=== PATIENT | female | born 1970 | race Caucasian/White ===

== ENCOUNTER 2016-04-12 12:24 | Emergency (ER) | payer MEDICAID ==
[2016-04-12 12:39] VITALS: TEMP 97.7
--- NOTE | 2016-04-12 12:40 | CPEKG ---
Heart Rate: 111 RR Interval: 541 P-R Interval: 128 QRSD Interval: 78 QT Interval: 344 QTC Interval: 468 P [place]: 44 QRS [place]: -24 T Wave [place]: 53 EKG Severity - ABNORMAL ECG - EKG Impression: SINUS TACHYCARDIA EKG Impression: PROBABLE LVH WITH SECONDARY REPOL ABNRM Electronically Signed By: Britney Joyner 12-Apr-2016 22:04:18
--- NOTE | 2016-04-12 13:15 | EDPHY ---
H & P Time Seen by Provider: 04/12/16 13:13 HPI/ROS: CHIEF COMPLAINT: Chest pain. HISTORY OF PRESENT ILLNESS: The patient is a 45-year-old female with a history of Prinzmetal's angina who presents with chest pain since last night. The chest pain was preceded by bilateral lower extremity swelling and erythema that has resolved. The chest pain is associated with racing palpitations. The pain radiates to her left arm and neck which is normal for her angina episodes. These are usually treated with Nitroglycerin which she did take at home. Nitroglycerin usually does not help and did not help this time. She reports that the pain usually goes away with pain medication. She notes that she recently had her dose of Nifedipine increased. She had a cardiac catheterization performed in January that showed normal coronary arteries. She denies shortness of breath, nausea, diaphoresis, or other complaints at this time. REVIEW OF SYSTEMS: A complete 10-point review of systems was performed and is negative except for those items mentioned in the HPI. Past Medical/Surgical History: Hypothyroidism, depression/anxiety, ovarian cyst, kidney stones, SVT, migraines , angina, thyroidectomy. Social History: Nonsmoker. Smoking Status: Never smoked Physical Exam: General Appearance: Alert, no distress, does not appear in pain Eyes: Pupils equal and round, no conjunctival pallor or injection ENT, Mouth: Mucous membranes moist Neck: Normal inspection Respiratory: Lungs are clear to auscultation Cardiovascular: Regular rate and rhythm Gastrointestinal: Abdomen is soft and non-tender Neurological: A&O, nonfocal, normal gait Skin: Warm and dry, no rash Extremities: Nontender, no pedal edema Psychiatric: Mood and affect normal Constitutional: Initial Vital Signs Temperature (C) 36.5 C 04/12/16 12:24 Heart Rate 108 H 04/12/16 12:24 Respiratory Rate 18 04/12/16 12:24 Blood Pressure 146/59 H 04/12/16 12:24 O2 Sat (%) 98 04/12/16 12:24 O2 Delivery Mode Room Air Allergies/Adverse Reactions: metoclopramide HCl [From Reglan] Allergy (Verified 02/17/16 03:32) Anxiety Home Medications: Medication Instructions Recorded Escitalopram Oxalate [Lexapro] 20 mg PO DAILY 12/07/15 Levothyroxine [Synthroid 112 mcg 112 mcg PO DAILY06 12/07/15 (*)] Multivitamins [Multivitamin (*)] 1 each PO DAILY 12/07/15 oxyCODONE/APAP 5/325 [Percocet 1 - 2 tab PO Q4H PRN 12/07/15 5/325 (*)] Acetaminophen [Tylenol 325mg (*)] 325 mg PO 5XD 02/02/16 Aspirin [Aspirin 81mg (*)] 81 mg PO DAILY 02/02/16 Calcium Carbonate [Tums 500MG (*)] 3,000 mg PO TID 02/02/16 LORazepam [Ativan (*)] 1 mg PO Q6-8PRN PRN 02/02/16 Levomefolate/Algal Oil 1 each PO DAILY 02/02/16 [[place]-Algal Oil 15 mg Capsule] Lisinopril [Zestril 40 mg (*)] 40 mg PO HS 02/02/16 Magnesium Oxide [Magnesium Oxide 400 mg PO DAILY 02/02/16 400 mg (*)] NIFEdipine [Procardia 10 mg (*)] 10 mg PO TID 02/02/16 Propranolol HCl [Inderal 10mg (*)] 10 mg PO Q6-8PRN PRN 02/02/16 oxyCODONE IR [Oxycodone Ir (*)] 10 mg PO Q4 PRN 02/02/16 Ibuprofen [Motrin (*)] 800 mg PO Q6-8PRN #7 tab 04/13/16 Medical Decision Making - Diagnostics EKG Interpretation: EKG interpreted by me reveals sinus rhythm tachycardia, borderline left axis deviation, normal intervals, ST and T segments normal. Imaging: Chest x-ray reviewed by Dr. Bruno, radiology reveals no source for chest pain identified. ED Course/Re-evaluation: Patient presents with recurrent chest pain possibly secondary to vasospasm. It is unusual that nifedipine and nitroglycerin do not help control her symptoms. Given that she has had a recent normal cardiac catheterization, and she has a normal EKG today, I can safely exclude acute coronary syndrome. An IV was established and labs ordered. 4mg IV Morphine administered for pain along with 4mg IV Zofran for nausea. Chest x-ray, EKG ordered. 1447: Reassessed patient. The chest pain is gone after IV Toradol. She is comfortable going home. I answered all of her questions. She was encouraged to follow up with her primary care physician. She was given warnings prior to being discharged. Differential Diagnosis: Differential diagnosis includes though it is not limited to pneumonia, pneumothorax, pulmonary embolism, aortic dissection, pericarditis, acute coronary syndrome. - Data Points Laboratory Results: Laboratory Results 04/12/16 12:48 04/12/16 12:48 Medications Given: Discontinued Medications Ketorolac Tromethamine (Toradol) 30 mg IVP EDNOW ONE Stop: 04/12/16 14:13 Last Admin: 04/12/16 14:19 Dose: 30 mg Morphine Sulfate (Morphine) 4 mg IVP EDNOW ONE Stop: 04/12/16 13:31 Last Admin: 04/12/16 13:42 Dose: 4 mg Ondansetron HCl (Zofran) 4 mg IVP EDNOW ONE Stop: 04/12/16 13:31 Last Admin: 04/12/16 13:42 Dose: 4 mg Departure - Departure Disposition: Home, Routine, Self-Care Clinical Impression: Chest pain Qualifiers: Qualifier Code: (R07.89) Other chest pain Condition: Good Instructions: Angina (ED), Chest Pain (ED) Additional Instructions: Follow up with your primary care provider this week for reevaluation. Return to the emergency department if you experience serious worsening of condition. Referrals: Juliana Mayes MD [Primary Care Provider] - As per Instructions Report Scribed for: Britney Joyner Report Scribed by: Sebastián Bruce Date of Report: 04/12/16 Time of Report: 13:14 Physician Review and Approval Statement: 04/12/16 13:15 Portions of this note were transcribed by a esthetician and manager medical spa. I personally performed a history, physical exam, medical decision making, and confirmed accuracy of information the transcribed note.
[2016-04-12 13:25] LABS: % IMMATURE GRANULYOCYTES 0.2 % (0.0-1.1); ABSOLUTE IMMATURE GRANULOCYTES 0.02 10^3/uL (0.00-0.10); ADD DIFF? NO; ADD MORPH? NO; ADD SCAN? NO; ATYPICAL LYMPHOCYTE FLAG 10 (0-99); FRAGMENT RBC FLAG 0 (0-99); HEMATOCRIT 40.7 % (38.0-47.0); HEMOGLOBIN 14.6 g/dL (12.6-16.3); LEFT SHIFT FLG 0 (0-99); LIPEMIA HEMOLYSIS FLAG 90 (0-99); MEAN CELL HEMOGLOBIN 34.4 pg (27.9-34.1); MEAN CELL HEMOGLOBIN CONCENTR. 35.9 g/dL (32.4-36.7); MEAN CELL VOLUME 95.8 fL (81.5-99.8); MEAN PLATELET VOLUME 8.7 fL (8.7-11.7); PLATELET CLUMPS FLAG 0 (0-99); PLATELET COUNT 481 10^3/uL (150-400); RED BLOOD CELL COUNT 4.25 10^6/uL (4.18-5.33); RED CELL DISTRIBUTION WIDTH 13.2 % (11.5-15.2)
--- NOTE | 2016-04-12 13:27 | DX ---
Chest, PA and Lateral History: Chest pain. COMPARISON: December 10, 2015 AP and December 07, 2015 PA and lateral Findings: Lungs clear. Heart size and pulmonary vascularity are normal. No pneumothorax or pleural ef fusion. EKG leads overlie the chest. There is mild degenerative spurring throughout the mid and lower thoracic spine. There is no free air or dilated bowel loop beneath either hemidiaphragm. Impression: No source for chest pain identified.
[2016-04-12] MEDS ORDERED: ONDANSETRON 4 MG/2 ML VIAL IVP ONE (13:30)
[2016-04-12 13:33] LABS: ANION GAP 13 mEq/L (8-16); CALCIUM 9.8 mg/dL (8.5-10.4); CARBON DIOXIDE 26 mEq/l (22-31); CHLORIDE 99 mEq/L (97-110); CREATININE 0.7 mg/dL (0.6-1.0); GLOMERULAR FILTRATION RATE > 60; GLUCOSE 122 mg/dL (70-100); POTASSIUM 4.5 mEq/L (3.5-5.2); SODIUM 138 mEq/L (134-144)
[2016-04-12 13:44] LABS: TROPONIN I < 0.012 ng/mL (0-0.034)
[2016-04-12] MEDS ORDERED: KETOROLAC 30 MG/1 ML SDV IVP ONE (14:12)
[2016-04-12 14:15] VITALS: BP 141/94; PULSE 102; RESP 13; O2SAT 95
== END 2016-04-12 14:57 | disposition home or self-care (01) ==
LOC: EDUNIT#
DX: R07.89 Other chest pain (principal); Z79.82 Long term (current) use of aspirin
CPT/HCPCS: 96374; J1885; J2405

== ENCOUNTER 2016-04-13 00:53 | Emergency (ER) | payer MEDICAID ==
[2016-04-13 01:02] VITALS: TEMP 98.4
--- NOTE | 2016-04-13 01:16 | CPEKG ---
Heart Rate: 110 RR Interval: 545 P-R Interval: 124 QRSD Interval: 76 QT Interval: 324 QTC Interval: 439 P [place]: 27 QRS [place]: -17 T Wave [place]: 34 EKG Severity - OTHERWISE NORMAL ECG - EKG Impression: SINUS TACHYCARDIA EKG Impression: BORDERLINE LEFT AXIS DEVIATION Electronically Signed By: Eddie Cid 13-Apr-2016 05:16:56
--- NOTE | 2016-04-13 01:17 | EDPHY ---
H & P Stated Complaint: CP HPI/ROS: HPI CHIEF COMPLAINT: sharp stabbing pain in her chest here earlier in the emergency room HISTORY OF PRESENT ILLNESS: this patient very pleasant 45-year-old female she does have significant past medical history for thyroid disease, panic attacks, anxiety, Prinzmetal angina no history of coronary artery disease or stents, history of palpitations, she was seen here earlier in the emergency room for chest pain she had a negative D-dimer negative troponin and and nonischemic EKG she felt better after pain medicine and was allowed to go home. She presents back to the emergency room because she states after she got home she felt fine she took a nap however woke up with inspiratory sharp pain in her chest that radiates out to her chest. she describes this as very sharp when she breathes in. She denies hemoptysis, denies shortness of breath. This made her anxious she decided come to the back to the emergency room. Currently upon arrival it is noted she is tachycardic in the 1 teens, she is complaining of inspiratory pleuritic pain. She denies history of DVT or PE. She also complains of anxiety. She denies jaw pain, arm pain, nausea, tingling. She denies chest pain or pressure other than the stated sharp stabbing pain when she breathes in. She tells me this has been present for 3 hours. It only occurs when she takes a deep breath in Past Medical History: Prinzmetal angina, thyroid disease, panic attacks, anxiety , palpitations, hypertension Social History: denies use of drugs, alcohol, tobacco products Family History: noncontributory ROS REVIEW OF SYSTEMS: A comprehensive 10 point review of systems is otherwise negative aside from elements mentioned in the history of present illness. Exam Constitutional Appears anxious, otherwise appears well, triage nursing summary reviewed, vital signs reviewed, awake/alert. Eyes normal conjunctivae and sclera, EOMI, PERRLA. HENT normal inspection, atraumatic, moist mucus membranes, no epistaxis, neck supple/ no meningismus, no raccoon eyes. Respiratory clear to auscultation bilaterally, normal breath sounds, no respiratory distress, no wheezing. Cardiovascular tachycardic, regular rhythm, no murmur, no edema, distal pulses normal. Gastrointestinal soft, non-tender, no rebound, no guarding, normal bowel sounds, no distension, no pulsatile mass. Genitourinary no CVA tenderness. Musculoskeletal no midline vertebral tenderness, full range of motion, no calf swelling, no tenderness of extremities, no meningismus, good pulses, neurovascularly intact. Skin pink, warm, & dry, no rash, skin atraumatic. Neurologic awake, alert and oriented x 3, AAOx3, moves all 4 extremities equally, motor intact, sensory intact, CN II-XII intact, normal cerebellar, normal vision, normal speech. Psychiatric normal mood/affect. Heme/Lymph/Immune no lymphadenopathy. Differential Diagnosis: includes but is not limited to in a particular order: acute anxiety, panic attack, pleurisy, pneumonia, pulmonary embolism, doubt ACS , pneumothorax, CHF Medical Decision Making: this patient had an IV established will be given IV morphine for pain control IV Zofran for nausea and IV Ativan for anxiety I did review her blood work from earlier however given she is having tachycardia pleuritic pain she will have a CT angiogram of her chest. She will have an EKG. We will check cardiac marker again.We will re-evaluate after pain medicine and blood work. She be placed on full security monitor. Re-evaluation: EKG interpretation by me on record in [employer] system. Impression Time of EKG 1:14 a.m., this is sinus tachycardia rate of 110 do not appreciate any acute ischemic changes specifically there is no ST elevation, ST depression or T -wave abnormalities. There is left axis deviation present there is no significant interval change. CT scan of the Angiogram chest. The results of the study are negative for acute pulmonary embolism no pneumothorax, no pneumonia, no pericardial effusion unremarkable CT angiogram of the chest for anything acute. The study was read by Dr. Bruno I viewed the images myself on the PACS system. 0316: Re-examination at this time this patient is resting comfortably she tells me that sharp stabbing pain when she breathes has improved. Her heart rate came down to 130s to [address] angiogram does not show any acute pulmonary embolism or pneumonia. She will continue IV fluids for hydration will re-evaluate. EKG interpretation by me on record in [employer] system. Impression This is repeat EKG time of EKG 4:48 a.m., this is sinus tachycardia rate of 101 there is no acute ischemic changes appreciated, specifically no ST elevation, ST depression, T-wave abnormalities. The EKG is unremarkable. Except for slight tachycardia 101. 0556: RE-EXAMINATION AT THIS TIME THIS PATIENT IS SLEEPING. ONCE WOKE SHE IS RESTING COMFORTABLY NO COMPLAINTS SHE DENIES CHEST PAIN OR SHORTNESS OF BREATH. SHE HAS HAD REPEAT EKGS HERE HER 2ND EKG IS UNREMARKABLE. NO ISCHEMIC CHANGES. HER REPEAT TROPONIN IS NORMAL. Her CT angiogram showed no evidence of acute pulmonary embolism her heart rate was initially tachycardic when she arrived here however it is much improved she is resting comfortably she is agreeable for discharge planning. she does tell me at time she has sharp stabbing pleuritic pain, and also worse when she moves I do recommend she takes a trial of anti-inflammatories. She does understand if she develops worsening any symptoms return to the ER. she understands this. Source: Patient - Personal History LMP (Females 10-55): 15-21 Days Ago Current Tetanus/Diphtheria Vaccine: Yes Current Tetanus Diphtheria and Acellular Pertussis (TDAP): Yes Tetanus Vaccine Date: 2011 - Medical/Surgical History Hx Asthma: No Hx Chronic Respiratory Disease: No Hx Diabetes: No Hx Cardiac Disease: Yes Hx Renal Disease: No Hx Cirrhosis: No Hx Alcoholism: No Hx HIV/AIDS: No Hx Splenectomy or Spleen Trauma: No Other PMH: PMH- HASHIMOTOS, hypothyroid, depression, ovarian cysts, MTHFR, DDD, KIDNEY STONES, SVT, anxiety, arthritis, MIGRAINE, prinzmetal angina. PSH- THYROIDECTOMY, , UTERINE SEPTATE REMOVAL - Social History Smoking Status: Never smoked Constitutional: Initial Vital Signs Temperature (C) 36.9 C 04/13/16 00:59 Heart Rate 133 H 04/13/16 00:59 Respiratory Rate 16 04/13/16 00:59 Blood Pressure 119/86 H 04/13/16 00:59 O2 Sat (%) 95 04/13/16 00:59 O2 Delivery Mode Room Air O2 (L/minute) 2 Allergies/Adverse Reactions: metoclopramide HCl [From Reglan] Allergy (Verified 02/17/16 03:32) Anxiety Home Medications: Medication Instructions Recorded Escitalopram Oxalate [Lexapro] 20 mg PO DAILY 12/07/15 Levothyroxine [Synthroid 112 mcg 112 mcg PO DAILY06 12/07/15 (*)] Multivitamins [Multivitamin (*)] 1 each PO DAILY 12/07/15 oxyCODONE/APAP 5/325 [Percocet 1 - 2 tab PO Q4H PRN 12/07/15 5/325 (*)] Acetaminophen [Tylenol 325mg (*)] 325 mg PO 5XD 02/02/16 Aspirin [Aspirin 81mg (*)] 81 mg PO DAILY 02/02/16 Calcium Carbonate [Tums 500MG (*)] 3,000 mg PO TID 02/02/16 LORazepam [Ativan (*)] 1 mg PO Q6-8PRN PRN 02/02/16 Levomefolate/Algal Oil 1 each PO DAILY 02/02/16 [[place]-Algal Oil 15 mg Capsule] Lisinopril [Zestril 40 mg (*)] 40 mg PO HS 02/02/16 Magnesium Oxide [Magnesium Oxide 400 mg PO DAILY 02/02/16 400 mg (*)] NIFEdipine [Procardia 10 mg (*)] 10 mg PO TID 02/02/16 Propranolol HCl [Inderal 10mg (*)] 10 mg PO Q6-8PRN PRN 02/02/16 oxyCODONE IR [Oxycodone Ir (*)] 10 mg PO Q4 PRN 02/02/16 Ibuprofen [Motrin (*)] 800 mg PO Q6-8PRN #7 tab 04/13/16 Medical Decision Making - Data Points Laboratory Results: Laboratory Results 04/13/16 05:00 04/13/16 02:00 04/13/16 04/13/16 04/13/16 05:00 02:00 01:25 WBC 15.93 H 10^3/uL 18.97 H D 10^3/uL REJ (3.80-9.50) (3.80-9.50) RBC 3.17 L 10^6/uL 3.55 L 10^6/uL REJ (4.18-5.33) (4.18-5.33) Hgb 10.8 L g/dL 12.1 L g/dL REJ (12.6-16.3) (12.6-16.3) Hct 30.6 L % 33.9 L % REJ (38.0-47.0) (38.0-47.0) MCV 96.5 fL 95.5 fL REJ (81.5-99.8) (81.5-99.8) MCH 34.1 pg 34.1 pg REJ (27.9-34.1) (27.9-34.1) MCHC 35.3 g/dL 35.7 g/dL REJ (32.4-36.7) (32.4-36.7) RDW 13.3 % 13.0 % REJ (11.5-15.2) (11.5-15.2) Plt Count 269 D 10^3/uL 327 D 10^3/uL REJ (150-400) (150-400) MPV 8.6 L fL 8.5 L fL REJ (8.7-11.7) (8.7-11.7) Neut % (Auto) 85.2 H % 88.9 H % REJ (39.3-74.2) (39.3-74.2) Lymph % (Auto) 10.1 L % 6.1 L % REJ (15.0-45.0) (15.0-45.0) [place] % (Auto) 3.9 L % 4.2 L % REJ (4.5-13.0) (4.5-13.0) Eos % (Auto) 0.1 L % 0.1 L % REJ (0.6-7.6) (0.6-7.6) Baso % (Auto) 0.3 % 0.3 % REJ (0.3-1.7) (0.3-1.7) Nucleat RBC Rel Count 0.0 % 0.0 % REJ (0.0-0.2) (0.0-0.2) Absolute Neuts (auto) 13.58 H 10^3/uL 16.87 H 10^3/uL REJ (1.70-6.50) (1.70-6.50) Absolute Lymphs (auto) 1.61 10^3/uL 1.16 10^3/uL REJ (1.00-3.00) (1.00-3.00) Absolute Monos (auto) 0.62 10^3/uL 0.79 10^3/uL REJ (0.30-0.80) (0.30-0.80) Absolute Eos (auto) 0.02 L 10^3/uL 0.02 L 10^3/uL REJ (0.03-0.40) (0.03-0.40) Absolute Basos (auto) 0.04 10^3/uL 0.05 10^3/uL REJ (0.02-0.10) (0.02-0.10) Absolute Nucleated RBC 0.00 10^3/uL 0.00 10^3/uL REJ (0-0.01) (0-0.01) Immature Gran % 0.4 % 0.4 % REJ (0.0-1.1) (0.0-1.1) Immature Gran # 0.06 10^3/uL 0.08 10^3/uL REJ (0.00-0.10) (0.00-0.10) PT 13.3 SEC REJ (12.0-15.0) INR 1.02 REJ (0.83-1.16) APTT 25.7 SEC REJ (23.0-38.0) Turbidity REJ Sodium 134 mEq/L REJ (134-144) Potassium 4.1 mEq/L REJ (3.5-5.2) Chloride 102 mEq/L REJ (97-110) Carbon Dioxide 21 L mEq/l REJ (22-31) Anion Gap 11 mEq/L REJ (8-16) BUN 14 mg/dL REJ (7-23) Creatinine 0.6 mg/dL REJ (0.6-1.0) Estimated GFR > 60 REJ Glucose 115 H mg/dL REJ (70-100) Calcium 9.1 mg/dL REJ (8.5-10.4) Magnesium 1.4 L mg/dL REJ (1.6-2.3) Total Bilirubin 0.9 mg/dL REJ (0.1-1.4) Conjugated Bilirubin 0.2 mg/dL REJ (0.0-0.5) Unconjugated Bilirubin 0.7 mg/dL REJ (0.0-1.1) AST 27 IU/L REJ (14-46) ALT 36 IU/L REJ (9-52) Alkaline Phosphatase 68 IU/L REJ (38-126) Creatine Kinase 50 IU/L REJ (0-156) CK-MB (CK-2) Fraction 0.48 ng/mL REJ (0-3.19) Troponin I < 0.012 ng/mL < 0.012 ng/mL REJ (0-0.034) (0-0.034) NT-Pro-B Natriuret Pep 67 pg/mL REJ (0-125) Total Protein 6.5 g/dL REJ (6.3-8.2) Albumin 3.5 g/dL REJ (3.5-5.0) Lipase 84.0 IU/L REJ (23-300) TSH 5.110 H uIU/mL REJ (0.465-4.680) Beta HCG, Qual NEGATIVE REJ Specimen Hemolysis REJ Medications Given: Discontinued Medications Sodium Chloride (Ns) 1,000 mls @ 0 mls/hr IV ONCE ONE PRN Reason: As Directed Stop: 04/13/16 01:37 Last Admin: 04/13/16 01:53 Dose: 1,000 mls Sodium Chloride (Ns) 1,000 mls @ 0 mls/hr IV ONCE ONE PRN Reason: Wide Open Stop: 04/13/16 03:16 Last Admin: 04/13/16 03:26 Dose: 1,000 mls Ketorolac Tromethamine (Toradol) 30 mg IVP EDNOW ONE Stop: 04/13/16 03:08 Last Admin: 04/13/16 03:10 Dose: 30 mg Lorazepam (Ativan Injection) 1 mg IVP EDNOW ONE Stop: 04/13/16 01:38 Last Admin: 04/13/16 01:52 Dose: 1 mg Morphine Sulfate (Morphine) 4 mg IVP EDNOW ONE Stop: 04/13/16 01:37 Last Admin: 04/13/16 01:52 Dose: 4 mg Ondansetron HCl (Zofran) 4 mg IVP EDNOW ONE Stop: 04/13/16 01:37 Last Admin: 04/13/16 01:52 Dose: 4 mg Departure - Departure Disposition: Home, Routine, Self-Care Clinical Impression: Anxiety, Pleurisy Condition: Good Instructions: Pleurisy (ED) Additional Instructions: 1. please try a trial of anti-inflammatory pain medicine. 2.Return emergency room if develops worsening symptoms questions or concerns. 3. please follow up with her primary care doctor. Referrals: Juliana Mayes MD [Primary Care Provider] - As per Instructions Prescriptions: Ibuprofen [Motrin (*)] 800 mg PO Q6-8PRN #7 tab
[2016-04-13] MEDS ORDERED: NS 1,000 ML IV ONE ×2 (01:36→03:15)
[2016-04-13] MEDS ORDERED: ONDANSETRON 4 MG/2 ML VIAL IVP ONE (01:36)
[2016-04-13] MEDS ORDERED: LORazepam 2 MG/ML INJ IVP ONE (01:37)
[2016-04-13] MEDS ORDERED: IOPAMIDOL (ISOVUE 370) 100 ML BTL IV ONE (01:41)
[2016-04-13 02:26] LABS: % IMMATURE GRANULYOCYTES 0.4 % (0.0-1.1); ABSOLUTE IMMATURE GRANULOCYTES 0.08 10^3/uL (0.00-0.10); ADD DIFF? NO; ADD MORPH? NO; ADD SCAN? NO; ATYPICAL LYMPHOCYTE FLAG 10 (0-99); FRAGMENT RBC FLAG 0 (0-99); HEMATOCRIT 33.9 % (38.0-47.0); HEMOGLOBIN 12.1 g/dL (12.6-16.3); LEFT SHIFT FLG 30 (0-99); LIPEMIA HEMOLYSIS FLAG 90 (0-99); MEAN CELL HEMOGLOBIN 34.1 pg (27.9-34.1); MEAN CELL HEMOGLOBIN CONCENTR. 35.7 g/dL (32.4-36.7); MEAN CELL VOLUME 95.5 fL (81.5-99.8); MEAN PLATELET VOLUME 8.5 fL (8.7-11.7); PLATELET CLUMPS FLAG 0 (0-99); PLATELET COUNT 327 10^3/uL (150-400); RED BLOOD CELL COUNT 3.55 10^6/uL (4.18-5.33)
[2016-04-13 02:35] LABS: ALANINE AMINOTRANSFERASE 36 IU/L (9-52); ALBUMIN 3.5 g/dL (3.5-5.0); ALKALINE PHOSPHATASE 68 IU/L (38-126); ANION GAP 11 mEq/L (8-16); ASPARTATE AMINOTRANSFERASE 27 IU/L (14-46); BILIRUBIN,TOTAL 0.9 mg/dL (0.1-1.4); BILIRUBIN-CONJUGATED 0.2 mg/dL (0.0-0.5); BILIRUBIN-UNCONJUGATED 0.7 mg/dL (0.0-1.1); CALCIUM 9.1 mg/dL (8.5-10.4); CARBON DIOXIDE 21 mEq/l (22-31); CHLORIDE 102 mEq/L (97-110); CREATININE 0.6 mg/dL (0.6-1.0); GLOMERULAR FILTRATION RATE > 60; GLUCOSE 115 mg/dL (70-100); MAGNESIUM 1.4 mg/dL (1.6-2.3); POTASSIUM 4.1 mEq/L (3.5-5.2); SODIUM 134 mEq/L (134-144); TOTAL PROTEIN 6.5 g/dL (6.3-8.2)
[2016-04-13 02:36] LABS: INR 1.02 (0.83-1.16); PROTIME(PATIENT) 13.3 SEC (12.0-15.0)
[2016-04-13 02:37] LABS: APTT 25.7 SEC (23.0-38.0)
[2016-04-13 02:48] LABS: CREATINE KINASE-MB FRACTION 0.48 ng/mL (0-3.19); TROPONIN I < 0.012 ng/mL (0-0.034)
[2016-04-13] MEDS ORDERED: KETOROLAC 30 MG/1 ML SDV IVP ONE (03:07)
--- NOTE | 2016-04-13 04:50 | CPEKG ---
Heart Rate: 101 RR Interval: 594 P-R Interval: 128 QRSD Interval: 78 QT Interval: 352 QTC Interval: 457 P [place]: 15 QRS [place]: -13 T Wave [place]: 9 EKG Severity - OTHERWISE NORMAL ECG - EKG Impression: SINUS TACHYCARDIA Electronically Signed By: Eddie Cid 13-Apr-2016 05:16:56
[2016-04-13 05:16] LABS: % IMMATURE GRANULYOCYTES 0.4 % (0.0-1.1); ABSOLUTE IMMATURE GRANULOCYTES 0.06 10^3/uL (0.00-0.10); ADD DIFF? NO; ADD MORPH? NO; ADD SCAN? NO; ATYPICAL LYMPHOCYTE FLAG 0 (0-99); FRAGMENT RBC FLAG 0 (0-99); HEMATOCRIT 30.6 % (38.0-47.0); HEMOGLOBIN 10.8 g/dL (12.6-16.3); LEFT SHIFT FLG 10 (0-99); LIPEMIA HEMOLYSIS FLAG 90 (0-99); MEAN CELL HEMOGLOBIN 34.1 pg (27.9-34.1); MEAN CELL HEMOGLOBIN CONCENTR. 35.3 g/dL (32.4-36.7); MEAN CELL VOLUME 96.5 fL (81.5-99.8); MEAN PLATELET VOLUME 8.6 fL (8.7-11.7); PLATELET CLUMPS FLAG 70 (0-99); PLATELET COUNT 269 10^3/uL (150-400); RED BLOOD CELL COUNT 3.17 10^6/uL (4.18-5.33); RED CELL DISTRIBUTION WIDTH 13.3 % (11.5-15.2)
[2016-04-13 06:21] VITALS: BP 98/69; PULSE 100; RESP 16; O2SAT 96
--- NOTE | 2016-04-13 06:55 | CT ---
CT Pulmonary Angiogram History: Pleuritic chest pain. Clotting disorder. Technique: Multiplanar and 3D reconstructions are reviewed on an independent 3D workstation. The patient received 85 mL of Isovue-370 intravenously. Findings: There is no pneumothorax, pleural effusion, cardiomegaly, or pericardial effusion. There is no rib fracture. There is no infiltrate or consolidation. There is no bronchial wall thickening or mucous plugging. There is no evidence for acute pulmonary embolus. There is apparent irregularity /beading of the left lower lobe medial basilar segmental pulmonary artery that is suggestive of sequelae from remote PE. I do not see an acute filling defect in any of the pulmonary arteries. Right-sided heart chambers are not dilated and the interventricular septum has normal morphology. Limited scans through the upper abdomen are normal. There are no subphrenic fluid collections. Impression: 1. No evidence for acute pulmonary embolism. 2. Suspect vascular scarring at the medial right lung base secondary to remote PE. The patient has a history of a clotting disorder. 3. No other cause for pleuritic chest pain identified. Results discussed with Dr. Cid at 2:15 a.m. Final results are concordant with the initial interpretation. General information for patients regarding this examination can be found at [email or web address]. If you have questions or comments about this report, please contact me at (hospital) or [phone] (cell). POS99 MTDD
== END 2016-04-13 06:21 | disposition home or self-care (01) ==
DX: F41.9 Anxiety disorder, unspecified (principal); R09.1 Pleurisy; I10 Essential (primary) hypertension; Z79.82 Long term (current) use of aspirin
CPT/HCPCS: 96374; J1885; J2405; Q9967

== ENCOUNTER 2016-05-07 10:41 | Day surgery (SDC) | payer MEDICAID ==
[2016-05-07] MEDS ORDERED: LR 1,000 ML IV ONE (11:10)
[2016-05-07] MEDS ORDERED: LIDOCAINE 1% 5 ML SDV ID PRN (11:10)
[2016-05-07] MEDS ORDERED: PROPOFOL/EMULSION 500 MG/50 ML BOTTLE IV ONE (11:47)
[2016-05-07] MEDS ORDERED: LIDOCAINE 2% 5 ML SDV ONE (11:48)
[2016-05-07] MEDS ORDERED: MIDAZOLAM 2 MG/2 ML VIAL ONE (12:14)
[2016-05-07] MEDS ORDERED: fentaNYL 100 MCG/2 ML INJ ONE ×2 (12:42→13:05)
--- NOTE | 2016-05-07 14:16 | GPN ---
[f rep st] PROCEDURE NOTE DATE OF PROCEDURE: 05/07/2016 PROCEDURES: 1. Esophagogastroduodenoscopy and biopsy. 2. Colonoscopy. INDICATIONS: 1. Iron deficiency anemia. 2. Epigastric pain. 3. Small amount of hematochezia. 4. Constipation. PREOPERATIVE DIAGNOSIS: Rule out ulcer disease, rule out polyps. POSTOPERATIVE DIAGNOSES: 1. Mild distal esophagitis, status post biopsy. 2. Normal duodenum, status post biopsy for evaluation of celiac sprue. 3. External hemorrhoids in the anal canal. 4. Otherwise normal colonoscopy with no evidence of polyps, diverticulosis, or colitis. INFORMED CONSENT: I had a detailed discussion with the patient regarding the procedure, alternative s, benefits, and risks including bleeding, perforation, infection, and risk of medication. Informed consent was signed and witnessed. COMPLICATIONS: None immediate. MEDICATIONS: IV general as per Dr. Reyes. DESCRIPTION OF PROCEDURE: After adequate sedation, the patient was in the left lateral decubitus po sition. The forward-viewing upper endoscope was passed via the oropharynx and advanced under direct visualization down the esophagus. There was irritation at the GE junction on both the gastric and esophageal side. It appeared to be a small inflamed little nodule secondary to reflux. The endosco pe was advanced down into the stomach. There were no ulcers or masses. The pylorus was normal. Th e duodenal bulb and sweep were normal. Biopsies were taken from the duodenal sweep and the duodenal bulb for evaluation of celiac sprue. Biopsies were taken from the mild erythema in the stomach for evaluation of any gastritis. Biopsies were taken from the GE junction for evaluation of esophagiti s. The endoscope was completely withdrawn, confirming the above findings. The patient tolerated th e procedure well and was repositioned for colonoscopy. Colonoscopy procedure report: The patient remained in the left lateral decubitus position. A visua l and digital anal examination was performed. External hemorrhoids were noted on digital exam. The video colonoscope was inserted via the rectum and advanced under visualization to the terminal iliu m. The prep was very good. There was no inflammation in the terminal ilium. There were no polyps, masses, colitis, or diverticulosis noted. Rectal examination was performed and normal. The endosc ope was completely withdrawn, confirming the above findings. The patient tolerated the procedure we ll and was transferred to recovery in satisfactory condition. IMPRESSION: 1. Distal esophagitis. 2. Mild gastric erythema. 3. Normal duodenal, status post biopsy for celiac sprue. 4. Normal colon, possibly without evidence of polyps and only external hemorrhoids. RECOMMENDATIONS: 1. Follow up pathology on polyp. 2. Start PPI such as pantoprazole 40 mg once daily. 3. Follow labs in the future. I would like to see her off iron if any iron deficiency recurs. If iron deficiency does not recur while she is on PPI therapy, then I would recommend a capsule endosco py evaluation of blood loss from the small intestine. If iron deficiency does not recur while she i s on PPI therapy, then it is likely related to the inflammation in the esophagus. Of course, if the duodenal biopsy shows celiac sprue, then the iron deficiency is related to poor absorption. 4. Repeat colonoscopy in 10 years for routine screening. 5. P.r.n. use of laxatives as needed. 6. High-fiber, high-fluid diet. 7. Follow up with primary care physician as scheduled. Thank you for allowing us to participate in this patient's clinical course. Do not hesitate to call me with any questions. /[id number]
== END 2016-05-07 14:25 | disposition home health service (06) ==
LOC: FSGY 10:41
PROVIDERS: ATTEND Internal Medicine Gastroenterology
PROC: 0DB68ZX Excision of Stomach, Via Natural or Artificial Opening Endoscopic, Diagnostic (ICD-10-PCS; principal; 2016-05-07 12:00)
PROC: 0DB98ZX Excision of Duodenum, Via Natural or Artificial Opening Endoscopic, Diagnostic (ICD-10-PCS; principal; 2016-05-07 12:00)
PROC: 0DB48ZX Excision of Esophagogastric Junction, Via Natural or Artificial Opening Endoscopic, Diagnostic (ICD-10-PCS; principal; 2016-05-07 12:00)
PROC: 0DJD8ZZ Inspection of Lower Intestinal Tract, Via Natural or Artificial Opening Endoscopic (ICD-10-PCS; principal; 2016-05-07 12:00)
DX: K20.9 Esophagitis, unspecified (principal); K64.4 Residual hemorrhoidal skin tags; D50.9 Iron deficiency anemia, unspecified; K92.1 Melena; I10 Essential (primary) hypertension; M19.90 Unspecified osteoarthritis, unspecified site
CPT/HCPCS: J2250; J2704; J3010

== ENCOUNTER 2016-07-25 16:57 | Inpatient (IN) | payer MEDICAID ==
[2016-07-25] MEDS ORDERED: ONDANSETRON 4 MG/2 ML VIAL IVP ONE ×2 (17:20→18:14)
[2016-07-25] MEDS ORDERED: NS 1,000 ML IV ONE ×2 (17:20→17:36)
[2016-07-25 17:24] LABS: % IMMATURE GRANULYOCYTES 0.4 % (0.0-1.1); ABSOLUTE IMMATURE GRANULOCYTES 0.07 10^3/uL (0.00-0.10); ADD DIFF? NO; ADD MORPH? NO; ADD SCAN? NO; ATYPICAL LYMPHOCYTE FLAG 0 (0-99); FRAGMENT RBC FLAG 0 (0-99); HEMATOCRIT 36.3 % (38.0-47.0); HEMOGLOBIN 13.1 g/dL (12.6-16.3); LEFT SHIFT FLG 0 (0-99); LIPEMIA HEMOLYSIS FLAG 90 (0-99); MEAN CELL HEMOGLOBIN 33.8 pg (27.9-34.1); MEAN CELL HEMOGLOBIN CONCENTR. 36.1 g/dL (32.4-36.7); MEAN CELL VOLUME 93.6 fL (81.5-99.8); MEAN PLATELET VOLUME 8.5 fL (8.7-11.7); PLATELET CLUMPS FLAG 0 (0-99); PLATELET COUNT 413 10^3/uL (150-400); RED BLOOD CELL COUNT 3.88 10^6/uL (4.18-5.33); RED CELL DISTRIBUTION WIDTH 12.7 % (11.5-15.2)
--- NOTE | 2016-07-25 17:26 | EDPHY ---
H & P Time Seen by Provider: 07/25/16 17:07 HPI/ROS: Chief complaint. Abdominal pain HPI. 46-year-old female with fairly sudden onset of right lower quadrant pain at 1:00 p.m. this afternoon. She has a history of diverticulitis. Her pain is in the right lower quadrant and radiates both to the umbilicus and toward the back on the right side. No left-sided pain. Vomiting x3. No diarrhea. It hurts to walk and move. No fever. She has had UTIs and pyelonephritis but this feels different. This feels somewhat similar to her diverticulitis. She still has her appendix. No chest discomfort or trouble breathing ROS Constitutional. no fever/chills, no weakness Eyes. no problems with vision ENT. no sore throat, no nasal drainage Cardiovascular. no chest pain Respiratory. no shortness of breath, no cough Abdominal. Right lower quadrant abdominal pain with nausea vomiting . no problems urinating MS. no calf pain/swelling, no neck/back pain, no joint pain Skin. no rash Lymph. no swollen glands Neuro. no headache, no dizziness, no difficulty walking or with speech Past Medical/Surgical History: Past medical history is extensive with Juan's thyroiditis, now hypothyroid , depression, ovarian cysts, kidney stones, SVT, anxiety, arthritis, migraines, Prinzmetal angina, thyroidectomy, Social History: , nonsmoker, no alcohol Smoking Status: Never smoked Physical Exam: General Appearance: Alert well-developed female moderate distress vital signs significant for heart rate 116 Eyes: Pupils equal and round no pallor or injection. ENT, Mouth: Mucous membranes are moist. Respiratory: There are no retractions, lungs are clear to auscultation. Cardiovascular: Regular rate and rhythm. Gastrointestinal: Abdomen is soft with tenderness in the right lower quadrant at McBurney's point. No masses. Bowel sounds are normal Neurological: Awake and alert, sensory and motor exams grossly normal. Skin: Warm and dry, no rashes. Musculoskeletal: Neck is supple nontender. Extremities symmetrical, full range of motion. Psychiatric: Patient is oriented X 3, there is no agitation. Constitutional: Initial Vital Signs Temperature (C) 37.0 C 07/25/16 16:58 Heart Rate 116 H 07/25/16 16:58 Respiratory Rate 22 H 07/25/16 16:58 O2 Sat (%) 98 07/25/16 16:58 O2 Delivery Mode Room Air Allergies/Adverse Reactions: ketorolac tromethamine [From Toradol] Allergy (Intermediate, Verified 07/25/16 17:02) EXERBATION OF ANXIETY amoxicillin trihydrate [From Augmentin] Allergy (Mild, Verified 07/25/16 17:02) TINNITIS metoclopramide HCl [From Reglan] Allergy (Verified 07/25/16 17:02) Anxiety potassium clavulanate [From Augmentin] Allergy (Verified 05/07/16 11:38) Home Medications: Medication Instructions Recorded Levothyroxine [Synthroid 112 mcg 150 mcg PO DAILY06 12/07/15 (*)] Multivitamins [Multivitamin (*)] 1 each PO DAILY 12/07/15 oxyCODONE/APAP 5/325 [Percocet 1 - 2 tab PO Q4H PRN 12/07/15 5/325 (*)] Calcium Carbonate [Tums 500MG (*)] 3,000 mg PO TID 02/02/16 LORazepam [Ativan (*)] 1 mg PO Q6-8PRN PRN 02/02/16 Lisinopril [Zestril 40 mg (*)] 40 mg PO HS 02/02/16 Magnesium Oxide [Magnesium Oxide 100 mg PO DAILY 02/02/16 400 mg (*)] NIFEdipine [Procardia 10 mg (*)] 10 mg PO TID 02/02/16 Propranolol HCl [Inderal 10mg (*)] 10 mg PO Q6-8PRN PRN 02/02/16 Cymbalta DAILY06 05/04/16 IRON BID 05/04/16 Medical Decision Making - Diagnostics Imaging Results: Imaging Impressions Abdomen CT 07/25/16 17:36 Impression: 1. Moderate appendicitis with periappendiceal inflammatory change but no abscess. Small 5 mm appendicolith is noted proximal appendix. 2. Stable 1-2 mm bilateral nephrolithiasis 3. Mild mid small bowel ileus suspected. Findings discussed with Naveed Crow M.D. at 19:09 hour, 07/25/2016. Abdomen pelvis CT reviewed by me and discussed with Dr. Patricia shows appendicitis Procedures: IV normal saline. Dilaudid and Zofran for pain and nausea Invanz intravenously ED Course/Re-evaluation: Re-evaluation 715. Patient and I discussed laboratory and imaging study results. We discussed treatment plan including need for appendectomy. She expresses understanding and agreement. I consulted and discussed case with Dr. Johnson, surgeon, who will see the patient in the emergency department Differential Diagnosis: I considered urinary tract infection, pyelonephritis, diverticulitis, appendicitis - Data Points Laboratory Results: Laboratory Results 07/25/16 17:16 07/25/16 17:16 07/25/16 07/25/16 07/25/16 18:12 17:16 17:16 WBC RBC Hgb Hct MCV MCH MCHC RDW Plt Count MPV Neut % (Auto) Lymph % (Auto) [place] % (Auto) Eos % (Auto) Baso % (Auto) Nucleat RBC Rel Count Absolute Neuts (auto) Absolute Lymphs (auto) Absolute Monos (auto) Absolute Eos (auto) Absolute Basos (auto) Absolute Nucleated RBC Immature Gran % Immature Gran # Sodium 134 mEq/L mEq/L (134-144) Potassium 3.5 mEq/L mEq/L (3.5-5.2) Chloride 93 mEq/L L mEq/L (97-110) Carbon Dioxide 27 mEq/l mEq/l (22-31) Anion Gap 14 mEq/L mEq/L (8-16) BUN 17 mg/dL mg/dL (7-23) Creatinine 0.7 mg/dL mg/dL (0.6-1.0) Estimated GFR > 60 Glucose 110 mg/dL H mg/dL (70-100) Calcium 10.2 mg/dL mg/dL (8.5-10.4) Beta HCG, Qual NEGATIVE Urine Color PALE YELLOW Urine Appearance CLEAR Urine pH 6.0 (5.0-7.5) Ur Specific [place] 1.008 (1.002-1.030) Urine Protein NEGATIVE (NEGATIVE) Urine Ketones TRACE H (NEGATIVE) Urine Blood NEGATIVE (NEGATIVE) Urine Nitrate NEGATIVE (NEGATIVE) Urine Bilirubin NEGATIVE (NEGATIVE) Urine Urobilinogen NEGATIVE EU EU (0.2-1.0) Ur Leukocyte Esterase NEGATIVE (NEGATIVE) Urine Glucose NEGATIVE (NEGATIVE) 07/25/16 17:16 WBC 16.72 10^3/uL H 10^3/uL (3.80-9.50) RBC 3.88 10^6/uL L 10^6/uL (4.18-5.33) Hgb 13.1 g/dL g/dL (12.6-16.3) Hct 36.3 % L % (38.0-47.0) MCV 93.6 fL fL (81.5-99.8) MCH 33.8 pg pg (27.9-34.1) MCHC 36.1 g/dL g/dL (32.4-36.7) RDW 12.7 % % (11.5-15.2) Plt Count 413 10^3/uL H 10^3/uL (150-400) MPV 8.5 fL L fL (8.7-11.7) Neut % (Auto) 76.5 % H % (39.3-74.2) Lymph % (Auto) 18.2 % % (15.0-45.0) [place] % (Auto) 4.3 % L % (4.5-13.0) Eos % (Auto) 0.2 % L % (0.6-7.6) Baso % (Auto) 0.4 % % (0.3-1.7) Nucleat RBC Rel Count 0.0 % % (0.0-0.2) Absolute Neuts (auto) 12.78 10^3/uL H 10^3/uL (1.70-6.50) Absolute Lymphs (auto) 3.05 10^3/uL H 10^3/uL (1.00-3.00) Absolute Monos (auto) 0.72 10^3/uL 10^3/uL (0.30-0.80) Absolute Eos (auto) 0.04 10^3/uL 10^3/uL (0.03-0.40) Absolute Basos (auto) 0.06 10^3/uL 10^3/uL (0.02-0.10) Absolute Nucleated RBC 0.00 10^3/uL 10^3/uL (0-0.01) Immature Gran % 0.4 % % (0.0-1.1) Immature Gran # 0.07 10^3/uL 10^3/uL (0.00-0.10) Sodium Potassium Chloride Carbon Dioxide Anion Gap BUN Creatinine Estimated GFR Glucose Calcium Beta HCG, Qual Urine Color Urine Appearance Urine pH Ur Specific [place] Urine Protein Urine Ketones Urine Blood Urine Nitrate Urine Bilirubin Urine Urobilinogen Ur Leukocyte Esterase Urine Glucose Medications Given: Discontinued Medications Hydromorphone HCl (Dilaudid) 1 mg IVP EDNOW ONE Stop: 07/25/16 17:37 Last Admin: 07/25/16 17:39 Dose: 1 mg Hydromorphone HCl (Dilaudid) 0.5 mg IVP EDNOW ONE Stop: 07/25/16 18:10 Last Admin: 07/25/16 18:10 Dose: 0.5 mg Hydromorphone HCl (Dilaudid) 1 mg IVP EDNOW ONE Stop: 07/25/16 19:03 Last Admin: 07/25/16 19:12 Dose: 1 mg Sodium Chloride (Ns) 1,000 mls @ 0 mls/hr IV ONCE ONE PRN Reason: Wide Open Stop: 07/25/16 17:21 Last Admin: 07/25/16 17:27 Dose: 1,000 mls Sodium Chloride (Ns) 1,000 mls @ 0 mls/hr IV ONCE ONE PRN Reason: Wide Open Stop: 07/25/16 17:37 Last Admin: 07/25/16 17:38 Dose: Not Given Ondansetron HCl (Zofran) 4 mg IVP EDNOW ONE Stop: 07/25/16 17:21 Last Admin: 07/25/16 17:27 Dose: 4 mg Ondansetron HCl (Zofran) 4 mg IVP EDNOW ONE Stop: 07/25/16 18:15 Last Admin: 07/25/16 18:17 Dose: 4 mg Departure - Departure Disposition: [facility] In[facility] Acute Clinical Impression: Acute appendicitis Qualifiers: Acute appendicitis type: with localized peritonitis Qualified Code(s): K35.3 - Acute appendicitis with localized peritonitis Condition: Good Referrals: Juliana Mayes MD [Primary Care Provider] - As per Instructions
[2016-07-25] MEDS ORDERED: HYDROmorphONE/DILAUDID 1 MG/ML SYR IVP ONE ×3 (17:36→19:02)
[2016-07-25 17:39] LABS: ANION GAP 14 mEq/L (8-16); CALCIUM 10.2 mg/dL (8.5-10.4); CARBON DIOXIDE 27 mEq/l (22-31); CHLORIDE 93 mEq/L (97-110); CREATININE 0.7 mg/dL (0.6-1.0); GLOMERULAR FILTRATION RATE > 60; GLUCOSE 110 mg/dL (70-100); POTASSIUM 3.5 mEq/L (3.5-5.2); SODIUM 134 mEq/L (134-144)
[2016-07-25] MEDS ORDERED: IOPAMIDOL (ISOVUE-300) 100 ML BTL IV ONE (18:05)
[2016-07-25] MEDS ORDERED: HYDROmorphONE/DILAUDID 1 MG/ML SYR ONE (18:06)
[2016-07-25 18:34] LABS: COLOR PALE YELLOW; LEUKOCYTE ESTERASE,URINE NEGATIVE (NEGATIVE); NITRITE,URINE NEGATIVE (NEGATIVE)
[2016-07-25] MEDS ORDERED: ERTAPENEM 1 GM in NS 100 ML IV ONE (19:15)
[2016-07-25] MEDS ORDERED: LORazepam 2 MG/ML INJ IVP ONE (19:40)
[2016-07-25] MEDS ORDERED: DEXAMETHASONE 4 MG/ML VIAL ONE (20:45)
[2016-07-25] MEDS ORDERED: fentaNYL 250 MCG/5 ML INJ ONE (20:46)
[2016-07-25] MEDS ORDERED: PROPOFOL/EMULSION 500 MG/50 ML BOTTLE IV ONE (20:46)
[2016-07-25] MEDS ORDERED: MIDAZOLAM 2 MG/2 ML VIAL ONE (20:47)
--- NOTE | 2016-07-25 21:10 | GHP ---
[f rep st] PREOP HISTORY AND PHYSICAL DATE OF ADMISSION: 07/25/2016 ADMITTING DIAGNOSIS: Appendicitis with appendicolith and possibly 4 prior subacute episodes. HISTORY: ,Patient is a 46-year-old, white female, who had the onset of right lower quadrant pain at 1 p.m. It felt like "diverticulitis I had before," then [facility] and radiated to her back. Her prior episodes of diverticulitis were never diagnosed by Radiology, which is empirically described. She has had a colonoscopy. No mention was made of diverticulosis at that time. She has not had an upper respiratory tract infection or diarrhea in the last 2 weeks. There is no history of travel or antibiotic use in the last 6 months. 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 This was done, both from the peroneal and the peritoneal approaches. She had a salad and a potato at 4 p.m. but vomited a half an hour later. SOCIAL HISTORY: She does not smoke. Drinks approximately 1-2 beers a night. ALLERGIES: She has an allergic reaction to nifedipine manifested by facial swelling and difficulty with her airway. She has adverse reactions to Reglan manifested by depression, Augmentin manifested by tinnitus and gastrointestinal upset, Toradol manifested by depression. MEDICATIONS: She takes chlorthalidone 25 mg every morning and lisinopril 40 mg every evening for hypertension. She takes Synthroid 200 mcg every morning. She takes an oxycodone, Tylenol combination, 7.5/3.325, 6 times a day for fibromyalgia. She also has arthritis in her back and hip and degenerative disc disease. She takes Cymbalta 60 mg every a.m. PAST SURGICAL HISTORY: Her surgeries have been a thyroidectomy at age 12. She also has had the 2 surgeries mentioned above. There is no history of rheumatic fever, tuberculosis, hepatitis, transfusions or risk of HIV. REVIEW OF SYSTEMS: She has had hypertension for 2 years. She does have Prinzmetal's angina. She has 2 dental crowns. She has had some difficulty swallowing since her thyroid surgery. She has GERD 2-3 times a week which occurs either in the day or at night. She has Juan's thyroiditis and a goiter at age 12. Her TSH 2 weeks ago was 43.9, a new prescription for levothyroxine was obtained. She had SVT which has landed her in the hospital once. Her last Pap smear and mammogram were 1 year ago and followup is due. She has had a history of a minimal kidney stone in the past. There are no limits on her activities. No history of steroid use. PHYSICAL EXAMINATION: GENERAL: She is awake, alert. She is seen holding her abdomen and is clearly uncomfortable. HEENT: Her skull is normocephalic and atraumatic. She is awake, alert, and cooperative. There is no focal, lateralizing or neurologic findings. She has a well-healed thyroid scar. NECK : Does not reveal any residual thyroid tissue. There are no carotid bruits. There is no cervical, supraclavicular, axillary, inguinal lymphadenopathy. BACK : Unremarkable. LUNGS: Clear to auscultation. CARDIAC: Exam shows a tachycardia of about 100-105. ABDOMEN: Nontender with cough. Psoas and obturator signs are negative. However, to palpation, her abdomen is tender on the scale of 1-10 as follows: Left upper quadrant 1 with mid abdomen 1, left lower quadrant 5, epigastrium 4, periumbilical is 7, suprapubic are is 7, right upper quadrant 8, right mid abdomen 19, right lower quadrant 7. Her CT scan does show an appendix with some periappendiceal stranding and appendicolith. IMPRESSION: I think this patient probably has had relapsing subacute appendicitis due to her appendicolith and I feel an appendectomy is appropriate at this time. Laparoscopic approach will be attempted. /[id number]/MODL MTDD
[2016-07-25] MEDS ORDERED: HEPARIN 5,000 UNIT/0.5 ML SYR ONE (21:15)
[2016-07-25] MEDS ORDERED: ceFAZolin 1 GM/5 ML SYR ONE (21:15)
[2016-07-25] MEDS ORDERED: SUGAMMADEX SODIUM 200 MG/2 ML VIAL IVP ONE (21:37)
[2016-07-25] MEDS ORDERED: ONDANSETRON 4 MG/2 ML VIAL IVP PRN (21:54)
[2016-07-25] MEDS ORDERED: LORazepam 1 MG TAB PO PRN (21:58)
[2016-07-25] MEDS ORDERED: LR 1,000 ML IV SCH (22:00)
[2016-07-25] MEDS ORDERED: fentaNYL 100 MCG/2 ML INJ ONE (22:00)
--- NOTE | 2016-07-25 22:05 | POSTOPPROG ---
Post Op Note Date of Operation: 07/25/16 Surgeon: Lucian Johnson Anesthesia: GET(General Endotracheal) Pre-op Diagnosis: acute appendicitis with appendicolith Post-op Diagnosis: acute appendicitis with appendicolith Indication: acute appendicitis with appendicolith Procedure: laparoscopic appendectomy Findings: acute appendicitis with appendicolith Inf/Abcess present in the surg proc area at time of surgery?: No EBL: Minimal Total fluids administered: 900cc Complications: none Specimen(s): appendix
[2016-07-25] MEDS: HYDROmorphONE/DILAUDID 1 MG/ML SYR IVP PRN (23:05)
[2016-07-25] MEDS: ACETAMINOPHEN 500 MG TAB PO SCH (23:05)
--- NOTE | 2016-07-26 01:26 | GOP ---
[f rep st] OPERATIVE REPORT DATE OF OPERATION: 07/25/2016 SURGEON: Lucian Johnson MD ANESTHESIA: General endotracheal. PREOPERATIVE DIAGNOSIS: Acute appendicitis with appendicolith. POSTOPERATIVE DIAGNOSIS: Acute appendicitis with appendicolith. PROCEDURE PERFORMED: Laparoscopic appendectomy. FINDINGS: Acute appendicitis with appendicolith. SPECIMENS: Appendix. ESTIMATED BLOOD LOSS: Minimal. INDICATIONS: Acute appendicitis with appendicolith. DESCRIPTION OF PROCEDURE: The patient was placed on the operating table in supine position. After induction of adequate general endotracheal anesthesia, a surgical time- out was carried out and agreed to by all members of the operative team. She was now clipped, prepped, and draped. A curvilinear incision was made at the umbilicus, a transverse incision was made at the suprapubic site, and an oblique incision was made in the left lower quadrant. In all cases, the dermal incision was completed with electrocautery. The umbilical incision was curvilinear. Dissection was carried out at the umbilical site, down to the right and left anterior rectus sheaths, which were elevated between Allis clamps. The fascia was divided in the midline. A pursestring of #0 PDS was placed. The peritoneum was entered. A disposable Mariano trocar (11-12) was positioned and pneumoperitoneum was established at 15 mmHg. A left lower quadrant 5 mm port was placed under direct vision as was a suprapubic 5 mm port. The patient was now positioned in Trendelenburg and rotated slightly to the left. The appendix was carefully sought and elevated. The mesoappendix was divided with the Harmonic Scalpel down to its base on the appendix. The appendix was transected with an automated EndoGIA. The specimen was placed in an EndoCatch bag and delivered via the umbilical port site. Irrigation with heparin and Ancef-containing irrigant was carried out. Photographic documentation of the ovaries and uterus was carried out. The small bowel was run for a distance of approximately 3 feet. There was no evidence of mesenteric adenitis or a Meckel diverticulum. The patient tolerated the procedure well. Ports were removed under direct vision. A simple suture of 0-PDS was placed at the midpoint of the midline fascial opening. The pursestring was tied and then the simple suture was tied. This resulted in an excellent closure. Subcutaneous tissue was irrigated at the umbilicus with heparin and Ancef-containing irrigant. Interrupted, inverted simple sutures of 4-0 Vicryl were placed in the dermis. The skin was closed with Dermabond. The patient was transferred to recovery in stable and satisfactory condition. FINDINGS: There was no deep abscess noted. TOTAL FLUIDS: 900 cc. COMPLICATIONS: None. /[id number]/MODL MTDD
[2016-07-26] MEDS: HYDROmorphONE/DILAUDID 1 MG/ML SYR IVP PRN ×7 (01:33→19:40)
[2016-07-26] MEDS: ACETAMINOPHEN 500 MG TAB PO SCH ×3 (04:56→22:51)
[2016-07-26] MEDS: LEVOTHYROXINE 100 MCG TAB PO SCH (04:56)
[2016-07-26] MEDS ORDERED: LEVOTHYROXINE 200 MCG TAB PO SCH (06:00)
[2016-07-26] MEDS: DULoxetine 60 MG CAP PO SCH (08:26)
[2016-07-26] MEDS: MAGNESIUM OXIDE 400 MG TAB PO SCH (08:27)
[2016-07-26] MEDS: CHLORTHALIDONE 25 MG TAB PO SCH (08:27)
[2016-07-26] MEDS: oxyCODONE IR 5 MG TAB PO SCH ×3 (09:22→18:22)
[2016-07-26] MEDS: OXYCODONE/APAP 5/325 TAB PO SCH ×3 (09:23→18:21)
[2016-07-26] MEDS ORDERED: [UNRECOGNIZED DRUG - OTHER] PO SCH (10:00)
[2016-07-26] MEDS ORDERED: OXYCODONE HCL PO SCH (10:00)
[2016-07-26] MEDS ORDERED: ACETAMINOPHEN PO SCH (10:00)
--- NOTE | 2016-07-26 15:31 | SOAPPROG ---
SOAP Progress Note Assessment/Plan: Assessment/Plan: 46 yo woman with hx of chronic pain Pod#1 s/p lap appy tolerating clears but had recurrent pain with regular diet Normally takes 15mg oxycodone Q4 hr RRR CTA Abd inc c/d/i Doing well Initial WBC 16 Not tolerating po Hypoxia Keep in house until 07/27 Pain control as able encourage po meds 07/26/16 15:28 Objective: Vital Signs Temp Pulse Resp BP Pulse Ox 36.9 C 107 H 16 129/78 H 94 07/26/16 15:05 07/26/16 15:05 07/26/16 15:05 07/26/16 15:05 07/26/16 15:05 07/25/16 07/26/16 07/27/16 05:59 05:59 05:59 Intake Total 3450 Output Total 20 Balance 3430 ICD10 Worksheet Patient Problems: Problems Problem Status Onset Acute appendicitis Acute Acute coronary syndrome Acute Anxiety Acute Chest pain Acute Palpitations Acute
[2016-07-26] MEDS: LISINOPRIL 40 MG TAB PO SCH (20:42)
--- NOTE | 2016-07-26 22:01 | SOAPPROG ---
SOAP Progress Note Assessment/Plan: Assessment: no new events since this afternoon. pain significantly better. eating dinner comfortably in bed. anticipate dc in am. Plan: 07/26/16 22:00 Objective: Vital Signs Temp Pulse Resp BP Pulse Ox 36.8 C 107 H 15 139/96 H 95 07/26/16 20:00 07/26/16 20:00 07/26/16 20:00 07/26/16 20:00 07/26/16 20:00 07/25/16 07/26/16 07/27/16 05:59 05:59 05:59 Intake Total 3450 1000 Output Total 20 Balance 3430 1000 ICD10 Worksheet Patient Problems: Problems Problem Status Onset Acute appendicitis Acute Acute coronary syndrome Acute Anxiety Acute Chest pain Acute Palpitations Acute
[2016-07-27] MEDS: oxyCODONE IR 5 MG TAB PO SCH ×4 (00:01→09:12)
[2016-07-27] MEDS: OXYCODONE/APAP 5/325 TAB PO SCH ×4 (00:01→09:13)
[2016-07-27] MEDS: HYDROmorphONE/DILAUDID 1 MG/ML SYR IVP PRN (00:27)
[2016-07-27 05:23] VITALS: O2SAT 90
[2016-07-27] MEDS: LEVOTHYROXINE 100 MCG TAB PO SCH (06:04)
[2016-07-27] MEDS: ACETAMINOPHEN 500 MG TAB PO SCH (06:21)
[2016-07-27 07:43] VITALS: BP 104/61; PULSE 72; RESP 18; TEMP 98.7
[2016-07-27] MEDS: DULoxetine 60 MG CAP PO SCH (09:13)
[2016-07-27] MEDS: CHLORTHALIDONE 25 MG TAB PO SCH (09:14)
[2016-07-27] MEDS: MAGNESIUM OXIDE 400 MG TAB PO SCH (09:14)
[2016-07-27] MEDS: LISINOPRIL 40 MG TAB PO SCH (09:17)
--- NOTE | 2016-07-27 09:56 | SOAPPROG ---
SOAP Progress Note Assessment/Plan: Assessment: 46yo F POD#2 s/p lap appy, chronic pain Pain improved Tolerating regular diet Passing flatus D/c home. f/u 2 weeks. no heavy lifting, pushing or pulling >10lbs x 2 weeks S: pain much better this morning. no nausea or pain with eating. no nausea. passing gas O: laying in bed, comfortable, NAD No increased WOB, CTAB RRR +BS, soft, nondistended, nontender Incisions CDI without e/o infection. early ecchymosis around umbilical incision Objective: Vital Signs Temp Pulse Resp BP Pulse Ox 37.1 C 72 18 104/61 90 L 07/27/16 07:42 07/27/16 07:42 07/27/16 07:42 07/27/16 09:14 07/27/16 07:42 07/26/16 07/27/16 07/28/16 05:59 05:59 05:59 Intake Total 1250 Balance 1250 ICD10 Worksheet Patient Problems: Problems Problem Status Onset Acute appendicitis Acute Acute coronary syndrome Acute Anxiety Acute Chest pain Acute Palpitations Acute
== END 2016-07-27 12:16 | disposition home or self-care (01) | DRG 343 ==
LOC: INTOOBSV 19:27 → F3N 22:33 → OBSVTOIN 07-26 15:28 → F1N 07-26 18:37
PROVIDERS: ADMIT Surgery; ATTEND Surgery
PROC: 0DTJ4ZZ Resection of Appendix, Percutaneous Endoscopic Approach (ICD-10-PCS; principal; 2016-07-25 20:59)
DX: K35.80 Unspecified acute appendicitis (principal); K38.1 Appendicular concretions
CPT/HCPCS: 96365; G0378; J1100; J1170; J1335; J2060; J2250; J2405; J2704; J3010; Q9967

== ENCOUNTER 2016-07-28 10:52 | Emergency (ER) | payer MEDICAID ==
[2016-07-28] MEDS ORDERED: ONDANSETRON 4 MG/2 ML VIAL IVP ONE (11:08)
[2016-07-28] MEDS ORDERED: NS 1,000 ML IV ONE ×2 (11:18→11:31)
[2016-07-28] MEDS ORDERED: fentaNYL 100 MCG/2 ML INJ IVP ONE ×2 (11:29→12:14)
[2016-07-28] MEDS ORDERED: fentaNYL 100 MCG/2 ML INJ ONE (11:30)
[2016-07-28 11:39] LABS: % IMMATURE GRANULYOCYTES 0.5 % (0.0-1.1); ABSOLUTE IMMATURE GRANULOCYTES 0.05 10^3/uL (0.00-0.10); ADD DIFF? NO; ADD MORPH? NO; ADD SCAN? NO; ATYPICAL LYMPHOCYTE FLAG 0 (0-99); FRAGMENT RBC FLAG 10 (0-99); HEMOGLOBIN 12.9 g/dL (12.6-16.3); LEFT SHIFT FLG 0 (0-99); LIPEMIA HEMOLYSIS FLAG 90 (0-99); MEAN CELL HEMOGLOBIN 33.4 pg (27.9-34.1); MEAN CELL HEMOGLOBIN CONCENTR. 34.9 g/dL (32.4-36.7); MEAN CELL VOLUME 95.9 fL (81.5-99.8); MEAN PLATELET VOLUME 8.6 fL (8.7-11.7); PLATELET CLUMPS FLAG 10 (0-99); PLATELET COUNT 510 10^3/uL (150-400); RED BLOOD CELL COUNT 3.86 10^6/uL (4.18-5.33)
--- NOTE | 2016-07-28 11:40 | EDPHY ---
H & P Time Seen by Provider: 07/28/16 11:14 HPI/ROS: CHIEF COMPLAINT: Abdominal pain, flank pain, sweating HISTORY OF PRESENT ILLNESS: Patient is a 46-year-old female who presents emergency department with multiple complaints. Patient had her appendix removed on Tuesday by Dr. Johnson. She was discharged yesterday. She had been doing well until this morning. She began did feel bilateral flank pain. This radiated to her anterior abdomen. She has moderate pain in the right lower quadrant. She has had nausea and nonbloody vomiting. She describes diffuse diaphoresis. She has had no chills. No reported fever. She has had no dysuria frequency. The patient's last menstrual period was 1 and half weeks ago. She is not currently sexually active. REVIEW OF SYSTEMS: My complete review of systems is negative except as mentioned in the HPI. Past Medical/Surgical History: Includes Juan's thyroiditis, hypothyroidism, depression, ovarian cyst,MTHFR , degenerative disc disease, kidney stones, SVT, anxiety, arthritis, migraine, Prinzmetal's angina Past surgical history: Includes thyroidectomy, , uterine septal removal, appendectomy Social history: The patient does not smoke Smoking Status: Never smoked Physical Exam: Vitals noted. 36.4, 139/90, 107, 22, 93 GENERAL: No acute distress, alert. HEENT: Eyes normal to inspection, normal pharynx, no signs of dehydration. NECK: No thyromegaly, no lymphadenopathy, supple. RESPIRATORY: Clear to auscultation bilaterally, no rales, rhonchi or wheezing. CVS: Regular rate and rhythm, no rubs, murmurs, or gallops. ABDOMEN: Surgical incision sites are clean dry and intact. There is no surrounding erythema. Mild right lower quadrant tenderness palpation with no rebound or guarding. Soft, no organomegaly. BACK: Normal to inspection, no CVA tenderness. SKIN: Normal color, no rash, warm, diffuse diaphoresis. No pallor. EXTREMITIES: No pedal edema, no calf tenderness, no Homans sign or cords, no joint swelling. NEURO/PSYCH: Alert and oriented x3, normal mood and affect, normal motor sensory exam. Constitutional: Initial Vital Signs Temperature (C) 36.4 C 07/28/16 10:56 Heart Rate 107 H 07/28/16 10:56 Respiratory Rate 22 H 07/28/16 10:56 Blood Pressure 139/90 H 07/28/16 10:56 O2 Sat (%) 93 07/28/16 10:56 O2 Delivery Mode Room Air Allergies/Adverse Reactions: nifedipine Allergy (Severe, Verified 07/28/16 10:55) Other-Enter Comments ketorolac tromethamine [From Toradol] Allergy (Intermediate, Verified 07/28/16 10:55) EXERBATION OF ANXIETY amoxicillin trihydrate [From Augmentin] Allergy (Mild, Verified 07/28/16 10:55) TINNITIS metoclopramide HCl [From Reglan] Allergy (Verified 07/28/16 10:55) Anxiety potassium clavulanate [From Augmentin] Allergy (Verified 07/28/16 10:55) Home Medications: Medication Instructions Recorded Multivitamins [Multivitamin (*)] 1 each PO DAILY 12/07/15 Calcium Carbonate [Tums 500MG (*)] 1,000 mg PO TIDMEAL PRN 02/02/16 LORazepam [Ativan (*)] 1 mg PO DAILY PRN 02/02/16 Lisinopril [Zestril 40 mg (*)] 40 mg PO HS 02/02/16 Magnesium Oxide [Magnesium Oxide 400 mg PO DAILY 02/02/16 400 mg (*)] DULoxetine [Cymbalta 60 MG (*)] 60 mg PO DAILY 05/04/16 Ferrous Sulfate [Ferrous Sulf 325 325 mg PO DAILY 05/04/16 MG (*)] Chlorthalidone [Chlorthalidone 25 25 mg PO DAILY 07/25/16 mg (*)] Levothyroxine [Synthroid 200 mcg 200 mcg PO DAILY06 07/25/16 (*)] oxyCODONE HCL/ACETAMINOPHEN 1 - 2 each PO Q6H PRN 07/25/16 [Percocet 7.5-325 mg Tablet] oxyCODONE/APAP 5/325 [Percocet 1 - 2 tab PO Q4 #15 tab 07/27/16 5/325 (*)] Medical Decision Making - Diagnostics Imaging Results: Imaging Impressions Abdomen CT 07/28/16 11:36 Impression: 1. No post appendectomy fluid collection or abscess. 2. Constipation. No evidence of obstruction or adynamic ileus. 3. Bilateral nephrolithiasis is unchanged. No ureteral calculi or hydroureteronephrosis. Findings discussed with Emergency Department physician, Dr. Elisha Hallman on July 28, 2016 ED Course/Re-evaluation: In the emergency department I discussed possible etiologies with the patient. I answered all her questions. IV was placed. Laboratory studies and CT were ordered. The patient was given fentanyl 50 mcg IV for pain control. She is given Zofran 4 mg IV for nausea. Patient's white count is 9.8. She is mildly anemic with hematocrit of 37. She has minimally elevated LFTs. Coags are negative. UA is negative. 1227: I discussed the case with Dr. Rosas Meeks. Please refer to his dictated report. No acute complication noted. Patient is constipated. The patient has bilateral nephrolithiasis with no ureterolithiasis or signs of obstruction. Patient had an elevated TSH of 48. I discussed this with the patient. She will follow up with primary care physician to adjust her thyroid medication. On recheck the patient was feeling better. She denies abdominal pain. No nausea vomiting. On repeat exam abdomen is soft, nontender nondistended. Diaphoresis has resolved. Patient will be discharged. She is given warnings prior to leaving. She will return with worsening symptoms. Differential Diagnosis: My differential includes but is not limited to small-bowel obstruction, perforation, abscess, kidney stone, urinary tract infection, pyelonephritis, thyroid storm, electrolyte abnormality, sugar abnormality, bacteremia, sepsis - Data Points Laboratory Results: Laboratory Results 07/28/16 11:31 07/28/16 11:31 07/28/16 07/28/16 07/28/16 11:50 11:48 11:31 WBC RBC Hgb Hct MCV MCH MCHC RDW Plt Count MPV Neut % (Auto) Lymph % (Auto) [place] % (Auto) Eos % (Auto) Baso % (Auto) Nucleat RBC Rel Count Absolute Neuts (auto) Absolute Lymphs (auto) Absolute Monos (auto) Absolute Eos (auto) Absolute Basos (auto) Absolute Nucleated RBC Immature Gran % Immature Gran # PT INR APTT Sodium 138 mEq/L mEq/L (134-144) Potassium 3.9 mEq/L mEq/L (3.5-5.2) Chloride 97 mEq/L mEq/L (97-110) Carbon Dioxide 29 mEq/l mEq/l (22-31) Anion Gap 12 mEq/L mEq/L (8-16) BUN 13 mg/dL mg/dL (7-23) Creatinine 0.8 mg/dL mg/dL (0.6-1.0) Estimated GFR > 60 Glucose 97 mg/dL mg/dL (70-100) Calcium 10.0 mg/dL mg/dL (8.5-10.4) Total Bilirubin 0.6 mg/dL mg/dL (0.1-1.4) Conjugated Bilirubin 0.5 mg/dL mg/dL (0.0-0.5) Unconjugated Bilirubin 0.1 mg/dL mg/dL (0.0-1.1) AST 82 IU/L H IU/L (14-46) ALT 122 IU/L H IU/L (9-52) Alkaline Phosphatase 96 IU/L IU/L (38-126) Total Protein 7.4 g/dL g/dL (6.3-8.2) Albumin 4.5 g/dL g/dL (3.5-5.0) Lipase 97.0 IU/L IU/L (23-300) TSH 48.100 uIU/mL H uIU/mL (0.465-4.680) Beta HCG, Qual NEGATIVE Urine Color LT. YELLOW Urine Appearance CLEAR Urine pH 7.5 (5.0-7.5) Ur Specific Panther Burn 1.010 (1.002-1.030) Urine Protein NEGATIVE (NEGATIVE) Urine Ketones NEGATIVE (NEGATIVE) Urine Blood NEGATIVE (NEGATIVE) Urine Nitrate NEGATIVE (NEGATIVE) Urine Bilirubin NEGATIVE (NEGATIVE) Urine Urobilinogen 0.2 EU EU (0.2-1.0) Ur Leukocyte Esterase NEGATIVE (NEGATIVE) Urine Glucose NEGATIVE (NEGATIVE) 07/28/16 07/28/16 11:31 11:07 WBC 9.80 10^3/uL H 10^3/uL (3.80-9.50) RBC 3.86 10^6/uL L 10^6/uL (4.18-5.33) Hgb 12.9 g/dL g/dL (12.6-16.3) Hct 37.0 % L % (38.0-47.0) MCV 95.9 fL fL (81.5-99.8) MCH 33.4 pg pg (27.9-34.1) MCHC 34.9 g/dL g/dL (32.4-36.7) RDW 13.0 % % (11.5-15.2) Plt Count 510 10^3/uL H D 10^3/uL (150-400) MPV 8.6 fL L fL (8.7-11.7) Neut % (Auto) 53.5 % % (39.3-74.2) Lymph % (Auto) 37.8 % % (15.0-45.0) [place] % (Auto) 7.3 % % (4.5-13.0) Eos % (Auto) 0.6 % % (0.6-7.6) Baso % (Auto) 0.3 % % (0.3-1.7) Nucleat RBC Rel Count 0.0 % % (0.0-0.2) Absolute Neuts (auto) 5.24 10^3/uL 10^3/uL (1.70-6.50) Absolute Lymphs (auto) 3.70 10^3/uL H 10^3/uL (1.00-3.00) Absolute Monos (auto) 0.72 10^3/uL 10^3/uL (0.30-0.80) Absolute Eos (auto) 0.06 10^3/uL 10^3/uL (0.03-0.40) Absolute Basos (auto) 0.03 10^3/uL 10^3/uL (0.02-0.10) Absolute Nucleated RBC 0.00 10^3/uL 10^3/uL (0-0.01) Immature Gran % 0.5 % % (0.0-1.1) Immature Gran # 0.05 10^3/uL 10^3/uL (0.00-0.10) PT 12.1 SEC SEC (12.0-15.0) INR 0.91 (0.83-1.16) APTT 26.8 SEC SEC (23.0-38.0) Sodium Potassium Chloride Carbon Dioxide Anion Gap BUN Creatinine Estimated GFR Glucose Calcium Total Bilirubin Conjugated Bilirubin Unconjugated Bilirubin AST ALT Alkaline Phosphatase Total Protein Albumin Lipase TSH Beta HCG, Qual Urine Color Urine Appearance Urine pH Ur Specific Panther Burn Urine Protein Urine Ketones Urine Blood Urine Nitrate Urine Bilirubin Urine Urobilinogen Ur Leukocyte Esterase Urine Glucose Medications Given: Discontinued Medications Fentanyl (Sublimaze) 50 mcg IVP EDNOW ONE Stop: 07/28/16 11:30 Last Admin: 07/28/16 11:33 Dose: 50 mcg Fentanyl (Sublimaze) 50 mcg IVP EDNOW ONE Stop: 07/28/16 12:15 Last Admin: 07/28/16 12:28 Dose: 50 mcg Sodium Chloride (Ns) 1,000 mls @ 0 mls/hr IV ONCE ONE PRN Reason: Wide Open Stop: 07/28/16 11:19 Last Admin: 07/28/16 11:18 Dose: 1,000 mls Sodium Chloride (Ns) 1,000 mls @ 0 mls/hr IV ONCE ONE PRN Reason: Wide Open Stop: 07/28/16 11:32 Last Admin: 07/28/16 11:47 Dose: Not Given Ondansetron HCl (Zofran) 4 mg IVP EDNOW ONE Stop: 07/28/16 11:09 Last Admin: 07/28/16 11:17 Dose: 4 mg Departure - Departure Disposition: Home, Routine, Self-Care Clinical Impression: Abdominal pain Qualifiers: Abdominal location: right lower quadrant Qualified Code(s): R10.31 - Right lower quadrant pain Condition: Good Instructions: Abdominal Pain (ED) Additional Instructions: Return with increasing pain, nausea, vomiting, fever or any other concerns. Referrals: Juliana Mayes MD [Primary Care Provider] - 1-2 days without fail
[2016-07-28] MEDS ORDERED: IOPAMIDOL (ISOVUE-300) 100 ML BTL IV ONE (11:44)
[2016-07-28 11:47] LABS: INR 0.91 (0.83-1.16); PROTIME(PATIENT) 12.1 SEC (12.0-15.0)
[2016-07-28 11:48] LABS: APTT 26.8 SEC (23.0-38.0)
[2016-07-28 12:01] LABS: ALANINE AMINOTRANSFERASE 122 IU/L (9-52); ALBUMIN 4.5 g/dL (3.5-5.0); ALKALINE PHOSPHATASE 96 IU/L (38-126); ANION GAP 12 mEq/L (8-16); ASPARTATE AMINOTRANSFERASE 82 IU/L (14-46); BILIRUBIN,TOTAL 0.6 mg/dL (0.1-1.4); BILIRUBIN-CONJUGATED 0.5 mg/dL (0.0-0.5); BILIRUBIN-UNCONJUGATED 0.1 mg/dL (0.0-1.1); CARBON DIOXIDE 29 mEq/l (22-31); CHLORIDE 97 mEq/L (97-110); CREATININE 0.8 mg/dL (0.6-1.0); GLOMERULAR FILTRATION RATE > 60; GLUCOSE 97 mg/dL (70-100); POTASSIUM 3.9 mEq/L (3.5-5.2); SODIUM 138 mEq/L (134-144); TOTAL PROTEIN 7.4 g/dL (6.3-8.2)
[2016-07-28 12:02] LABS: COLOR LT. YELLOW; LEUKOCYTE ESTERASE,URINE NEGATIVE (NEGATIVE); NITRITE,URINE NEGATIVE (NEGATIVE); PH,URINE 7.5 (5.0-7.5)
[2016-07-28 12:13] VITALS: TEMP 97.7
[2016-07-28] MEDS ORDERED: KETOROLAC 30 MG/1 ML SDV ONE (13:07)
[2016-07-28 13:14] VITALS: BP 118/72; PULSE 98; RESP 16; O2SAT 97
== END 2016-07-28 13:32 | disposition home or self-care (01) ==
DX: R10.31 Right lower quadrant pain (principal)
CPT/HCPCS: 96374; J1885; J2405; J3010; Q9967

== ENCOUNTER 2016-07-30 16:10 | Observation (INO) | payer MEDICAID ==
--- NOTE | 2016-07-30 17:05 | EDPHY ---
JEFF Addendum - Addendum .: Patient was not seen by myself while in the emergency department on 07/30/16.
[2016-07-30] MEDS ORDERED: HYDROmorphONE/DILAUDID 1 MG/ML SYR IVP ONE ×2 (17:32→18:44)
[2016-07-30] MEDS ORDERED: NS 1,000 ML IV ONE ×2 (17:32)
[2016-07-30] MEDS ORDERED: ONDANSETRON 4 MG/2 ML VIAL IVP ONE (17:32)
--- NOTE | 2016-07-30 17:34 | EDPHY ---
H & P Time Seen by Provider: 07/30/16 17:18 HPI/ROS: CHIEF COMPLAINT: Abdominal pain and vomiting HISTORY OF PRESENT ILLNESS: Patient had a appendectomy this past week on Tuesday by Dr. Johnson. She was here 2 days ago with nausea and vomiting and had CT scanning which did not show any other acute postsurgical problem. She did well until today and had multiple episodes of nausea and vomiting. So seated with her skin feeling like it is on fire. She did have a small bowel movement. It is described as crampy and severe without radiation. No urinary symptoms or fever. REVIEW OF SYSTEMS: Eye: no change in vision ENT: no sore throat Cardiac: no chest pain or syncope Pulmonary: no cough or SOB Abdomen: HPI Musculoskeletal: no back pain Skin: no rash Neuro: no headache Constitutional: no fever : no urinary symptoms A comprehensive 10 point review of systems is otherwise negative aside from elements mentioned in the history of present illness. PAST MEDICAL HISTORY: Includes appendectomy, Juan's thyroiditis, thyroid disease, depression, ovarian cyst, kidney stones, anxiety, arthritis, migraine, Prinzmetal's angina, SVT, thyroidectomy, , appendectomy. Social history: Nonsmoker General Appearance: Alert and conversant, cooperative. Eyes: No scleral icterus. ENT, Mouth: Slightly dry mucous membranes Respiratory: Normal respiratory effort, breath sounds equal, lungs are clear to auscultation. Cardiovascular: Regular rate and rhythm. Gastrointestinal: Diffuse tenderness but no rebound or guarding and bowel sounds are present. Neurological: Alert and oriented x3. Normally conversant. Face symmetric, normal movement and sensation in all extremities. Skin: Bruising around the laparoscopic incisions but otherwise no rash. Musculoskeletal: No peripheral edema and no joint swelling. Psychiatric: Not agitated. Emergency Department course/MDM: Dilaudid 0.5 mg, Zofran 4 mg, normal saline 2 L for nausea and vomiting. Plan for 2 abdomen and admission to on-call surgeon for further evaluation and treatment. Smoking Status: Never smoked Constitutional: Initial Vital Signs Temperature (C) 36.4 C 07/30/16 16:14 Heart Rate 98 07/30/16 16:14 Respiratory Rate 22 H 07/30/16 16:14 Blood Pressure 135/93 H 07/30/16 16:14 O2 Sat (%) 99 07/30/16 16:14 O2 Delivery Mode Room Air Allergies/Adverse Reactions: nifedipine Allergy (Severe, Verified 07/30/16 16:13) Other-Enter Comments ketorolac tromethamine [From Toradol] Allergy (Intermediate, Verified 07/30/16 16:13) EXERBATION OF ANXIETY amoxicillin trihydrate [From Augmentin] Allergy (Mild, Verified 07/30/16 16:13) TINNITIS metoclopramide HCl [From Reglan] Allergy (Verified 07/30/16 16:13) Anxiety potassium clavulanate [From Augmentin] Allergy (Verified 07/30/16 16:13) Home Medications: Medication Instructions Recorded Calcium Carbonate [Tums 500MG (*)] 1,000 mg PO TIDMEAL PRN 07/30/16 Chlorthalidone [Chlorthalidone 25 25 mg PO DAILY 07/30/16 mg (*)] DULoxetine [Cymbalta 60 MG (*)] 60 mg PO DAILY 07/30/16 Ferrous Sulfate [Ferrous Sulf 325 325 mg PO DAILY 07/30/16 MG (*)] LORazepam [Ativan (*)] 1 mg PO DAILY PRN 07/30/16 Levothyroxine [Synthroid 200 mcg 200 mcg PO DAILY 07/30/16 (*)] Lisinopril [Zestril 40 mg (*)] 40 mg PO HS 07/30/16 Magnesium Oxide [Magnesium Oxide 400 mg PO DAILY 07/30/16 400 mg (*)] Multivitamins [Multivitamin (*)] 1 each PO DAILY 07/30/16 oxyCODONE HCL/ACETAMINOPHEN 2 each PO TID PRN 07/30/16 [Percocet 7.5-325 mg Tablet] Medical Decision Making - Diagnostics Imaging Results: Imaging Impressions Abdomen X-Ray 07/30/16 17:32 Impression: 1. Severe constipation 2. Nonspecific clustered small air-fluid levels in the region of the cecum. If there is concern for re-single abscess formation, then consider CT.. Differential Diagnosis: Differential considered including but not limited to anesthetic reaction, bowel obstruction, postoperative complication or abscess, gastroenteritis Consult/Admit Bed Type: [place] [id number] - Data Points Laboratory Results: Laboratory Results 07/30/16 17:23 07/30/16 17:23 07/30/16 07/30/16 17:23 17:23 WBC 14.58 10^3/uL H 10^3/uL (3.80-9.50) RBC 4.01 10^6/uL L 10^6/uL (4.18-5.33) Hgb 13.4 g/dL g/dL (12.6-16.3) Hct 37.9 % L % (38.0-47.0) MCV 94.5 fL fL (81.5-99.8) MCH 33.4 pg pg (27.9-34.1) MCHC 35.4 g/dL g/dL (32.4-36.7) RDW 12.7 % % (11.5-15.2) Plt Count 455 10^3/uL H D 10^3/uL (150-400) MPV 8.3 fL L fL (8.7-11.7) Neut % (Auto) 75.7 % H % (39.3-74.2) Lymph % (Auto) 18.1 % % (15.0-45.0) [place] % (Auto) 4.9 % % (4.5-13.0) Eos % (Auto) 0.4 % L % (0.6-7.6) Baso % (Auto) 0.3 % % (0.3-1.7) Nucleat RBC Rel Count 0.0 % % (0.0-0.2) Absolute Neuts (auto) 11.04 10^3/uL H 10^3/uL (1.70-6.50) Absolute Lymphs (auto) 2.64 10^3/uL 10^3/uL (1.00-3.00) Absolute Monos (auto) 0.71 10^3/uL 10^3/uL (0.30-0.80) Absolute Eos (auto) 0.06 10^3/uL 10^3/uL (0.03-0.40) Absolute Basos (auto) 0.04 10^3/uL 10^3/uL (0.02-0.10) Absolute Nucleated RBC 0.00 10^3/uL 10^3/uL (0-0.01) Immature Gran % 0.6 % % (0.0-1.1) Immature Gran # 0.09 10^3/uL 10^3/uL (0.00-0.10) Sodium 138 mEq/L mEq/L (134-144) Potassium 4.0 mEq/L mEq/L (3.5-5.2) Chloride 99 mEq/L mEq/L (97-110) Carbon Dioxide 27 mEq/l mEq/l (22-31) Anion Gap 12 mEq/L mEq/L (8-16) BUN 12 mg/dL mg/dL (7-23) Creatinine 0.6 mg/dL mg/dL (0.6-1.0) Estimated GFR > 60 Glucose 134 mg/dL H mg/dL (70-100) Calcium 10.1 mg/dL mg/dL (8.5-10.4) Total Bilirubin 0.7 mg/dL mg/dL (0.1-1.4) Conjugated Bilirubin 0.5 mg/dL mg/dL (0.0-0.5) Unconjugated Bilirubin 0.2 mg/dL mg/dL (0.0-1.1) AST 81 IU/L H IU/L (14-46) ALT 128 IU/L H IU/L (9-52) Alkaline Phosphatase 126 IU/L IU/L (38-126) Total Protein 7.8 g/dL g/dL (6.3-8.2) Albumin 4.7 g/dL g/dL (3.5-5.0) Lipase 106.0 IU/L IU/L (23-300) Medications Given: Discontinued Medications Fentanyl (Sublimaze) 50 mcg IVP EDNOW ONE Stop: 07/30/16 19:26 Last Admin: 07/30/16 19:30 Dose: 50 mcg Hydromorphone HCl (Dilaudid) 0.5 mg IVP EDNOW ONE Stop: 07/30/16 17:33 Last Admin: 07/30/16 17:50 Dose: 1 mg Hydromorphone HCl (Dilaudid) 1 mg IVP EDNOW ONE Stop: 07/30/16 18:45 Last Admin: 07/30/16 18:46 Dose: 1 mg Sodium Chloride (Ns) 1,000 mls @ 0 mls/hr IV ONCE ONE PRN Reason: Wide Open Stop: 07/30/16 17:33 Last Admin: 07/30/16 17:51 Dose: 1,000 mls Sodium Chloride (Ns) 1,000 mls @ 0 mls/hr IV ONCE ONE PRN Reason: Wide Open Stop: 07/30/16 17:33 Last Admin: 07/30/16 17:51 Dose: 1,000 mls Ondansetron HCl (Zofran) 4 mg IVP EDNOW ONE Stop: 07/30/16 17:33 Last Admin: 07/30/16 17:52 Dose: 4 mg Departure - Departure Disposition: [facility] Inpatient Acute Clinical Impression: Nausea & vomiting Qualifiers: Vomiting type: unspecified Vomiting Intractability: intractable Qualified Code( s): R11.2 - Nausea with vomiting, unspecified Abdominal pain Qualifiers: Abdominal location: generalized Qualified Code(s): R10.84 - Generalized abdominal pain Condition: Good
[2016-07-30 17:37] LABS: % IMMATURE GRANULYOCYTES 0.6 % (0.0-1.1); ABSOLUTE IMMATURE GRANULOCYTES 0.09 10^3/uL (0.00-0.10); ADD DIFF? NO; ADD MORPH? NO; ADD SCAN? NO; ATYPICAL LYMPHOCYTE FLAG 0 (0-99); FRAGMENT RBC FLAG 0 (0-99); HEMATOCRIT 37.9 % (38.0-47.0); HEMOGLOBIN 13.4 g/dL (12.6-16.3); LEFT SHIFT FLG 10 (0-99); LIPEMIA HEMOLYSIS FLAG 90 (0-99); MEAN CELL HEMOGLOBIN 33.4 pg (27.9-34.1); MEAN CELL HEMOGLOBIN CONCENTR. 35.4 g/dL (32.4-36.7); MEAN CELL VOLUME 94.5 fL (81.5-99.8); MEAN PLATELET VOLUME 8.3 fL (8.7-11.7); PLATELET CLUMPS FLAG 0 (0-99); PLATELET COUNT 455 10^3/uL (150-400); RED BLOOD CELL COUNT 4.01 10^6/uL (4.18-5.33); RED CELL DISTRIBUTION WIDTH 12.7 % (11.5-15.2)
[2016-07-30 17:46] LABS: ALANINE AMINOTRANSFERASE 128 IU/L (9-52); ALBUMIN 4.7 g/dL (3.5-5.0); ALKALINE PHOSPHATASE 126 IU/L (38-126); ANION GAP 12 mEq/L (8-16); ASPARTATE AMINOTRANSFERASE 81 IU/L (14-46); BILIRUBIN,TOTAL 0.7 mg/dL (0.1-1.4); BILIRUBIN-CONJUGATED 0.5 mg/dL (0.0-0.5); BILIRUBIN-UNCONJUGATED 0.2 mg/dL (0.0-1.1); CALCIUM 10.1 mg/dL (8.5-10.4); CARBON DIOXIDE 27 mEq/l (22-31); CHLORIDE 99 mEq/L (97-110); CREATININE 0.6 mg/dL (0.6-1.0); GLOMERULAR FILTRATION RATE > 60; GLUCOSE 134 mg/dL (70-100); SODIUM 138 mEq/L (134-144); TOTAL PROTEIN 7.8 g/dL (6.3-8.2)
[2016-07-30] MEDS ORDERED: HYDROmorphONE/DILAUDID 1 MG/ML SYR ONE (18:09)
[2016-07-30] MEDS ORDERED: fentaNYL 100 MCG/2 ML INJ IVP ONE (19:25)
[2016-07-30 20:03] VITALS: RESP 16
--- NOTE | 2016-07-30 20:10 | GCON ---
[f rep st] CONSULTATION DATE OF CONSULTATION: 07/30/2016 HISTORY: This is a 46-year-old woman with a history of chronic pain on Percocet who had had appendectomy on 07/25/2016. The patient was discharged on 07/27/2016 tolerating a diet with expected amount of pain. She was seen in the emergency room 2 days later with nausea, vomiting. Underwent CAT scan evaluation , found to be negative. The patient returns again with continued, as expected, abdominal pain around her umbilicus and she complains of cramping when she stands up around her sides as well. She was nauseated and vomited this morning , but she had a normal bowel movement today. PAST MEDICAL HISTORY: The patient has a past medical history that is significant for Juan thyroiditis, ovarian cyst, kidney stone, anxiety, arthritis, migraines, Prinzmetal angina, SVT. She has had previous thyroidectomy, and most recently, appendectomy. REVIEW OF SYSTEMS: Significant for her abdominal pain which is in the HPI. She denies smoking, alcohol or drug use. MEDICATIONS ON EVALUATION: Multivitamins, calcium carbonate, Ativan, Zestril, magnesium oxide, Cymbalta, ferrous sulfate, levothyroxine, chlorthalidone, Percocet 15 mg q 4 hours. LABORATORY STUDIES TODAY: Show a white count of 14.5, hemoglobin of 13, hematocrit of 37, platelet count of 455, sodium 138, potassium 4.0, chloride 99 , bicarb 27, BUN 12, creatinine 0.6, glucose 134. Her transaminases are normal. The patient had abdominal x-ray done today which has benign pattern, has not been read by Radiology at this point. IMPRESSION/Plan: Expected abdominal pain, possible withdrawal from narcotics. At this point, I would recommend the patient be discharged with Zofran ODT unless she cannot tolerate p.o. She does have an elevated white count and admission can be done on this basis. I believe the patient is more likely withdrawing from alcohol and will likely need a refill of her narcotics and detox later. Addendum:pt admitted for pain control. Will likely need pain consultation. /[id number]/MODL MTDD
[2016-07-30] MEDS ORDERED: ONDANSETRON 4 MG/2 ML VIAL IVP PRN (20:32)
[2016-07-30] MEDS ORDERED: ZOLPIDEM TARTRATE 5 MG TAB PO PRN (20:32)
[2016-07-30] MEDS ORDERED: ONDANSETRON DISINTEGRATING 4 MG TAB PO PRN (20:32)
[2016-07-30] MEDS ORDERED: LORazepam 0.5 MG TAB PO PRN (20:32)
[2016-07-30] MEDS ORDERED: CALCIUM CARBONATE 500 MG CHEWABLE TAB PO PRN (20:34)
[2016-07-30] MEDS ORDERED: LISINOPRIL 40 MG TAB PO SCH (21:00)
[2016-07-30] MEDS: HYDROmorphONE/DILAUDID 1 MG/ML SYR IVP PRN (22:23)
[2016-07-30 23:17] VITALS: O2SAT 95
[2016-07-30] MEDS: oxyCODONE IR 5 MG TAB PO PRN (23:31)
[2016-07-31] MEDS: HYDROmorphONE/DILAUDID 1 MG/ML SYR IVP PRN ×2 (02:46→08:51)
[2016-07-31] MEDS: oxyCODONE IR 5 MG TAB PO PRN ×3 (03:56→12:41)
[2016-07-31 05:25] LABS: % IMMATURE GRANULYOCYTES 0.5 % (0.0-1.1); ABSOLUTE IMMATURE GRANULOCYTES 0.04 10^3/uL (0.00-0.10); ADD DIFF? NO; ADD MORPH? NO; ADD SCAN? NO; ATYPICAL LYMPHOCYTE FLAG 30 (0-99); FRAGMENT RBC FLAG 0 (0-99); HEMATOCRIT 32.3 % (38.0-47.0); HEMOGLOBIN 11.1 g/dL (12.6-16.3); LEFT SHIFT FLG 0 (0-99); LIPEMIA HEMOLYSIS FLAG 90 (0-99); MEAN CELL HEMOGLOBIN 32.9 pg (27.9-34.1); MEAN CELL HEMOGLOBIN CONCENTR. 34.4 g/dL (32.4-36.7); MEAN CELL VOLUME 95.8 fL (81.5-99.8); MEAN PLATELET VOLUME 8.3 fL (8.7-11.7); PLATELET CLUMPS FLAG 0 (0-99); PLATELET COUNT 383 10^3/uL (150-400); RED BLOOD CELL COUNT 3.37 10^6/uL (4.18-5.33); RED CELL DISTRIBUTION WIDTH 12.9 % (11.5-15.2)
[2016-07-31 08:13] VITALS: BP 107/61; PULSE 88; TEMP 98.3
[2016-07-31] MEDS: LEVOTHYROXINE 100 MCG TAB PO SCH ×2 (08:33→09:46)
[2016-07-31] MEDS ORDERED: MAGNESIUM OXIDE 400 MG TAB PO SCH (09:00)
[2016-07-31] MEDS ORDERED: MULTIVITAMINS 1 EACH TAB PO SCH (09:00)
[2016-07-31] MEDS ORDERED: DULoxetine 60 MG CAP PO SCH (09:00)
[2016-07-31] MEDS ORDERED: FERROUS SULFATE 325 MG TAB PO SCH (09:00)
[2016-07-31] MEDS ORDERED: CHLORTHALIDONE 25 MG TAB PO SCH (09:00)
--- NOTE | 2016-07-31 11:42 | SOAPPROG ---
SOAP Progress Note Assessment/Plan: Assessment:no new complaints. pain better. no current nausea or vomiting. avss. sleeping quietly. abd soft, min incis tenderness. improved. home today. needs to f/u with pcp for mgmnt of hypothyroidism and resumption of her usual pain regimen. will plan to see back prn problems. patient without any new questions or concerns. seen with nursing staff at bedside Plan: 07/31/16 11:27 Objective: Vital Signs Temp Pulse Resp BP Pulse Ox 36.8 C 88 16 107/61 95 07/31/16 08:12 07/31/16 08:12 07/31/16 08:12 07/31/16 08:12 07/31/16 08:12 Laboratory Results 07/31/16 04:55 07/30/16 07/31/16 08/01/16 05:59 05:59 05:59 Intake Total 2600 Balance 2600 ICD10 Worksheet Patient Problems: Problems Problem Status Onset Abdominal pain Acute Nausea & vomiting Acute Acute appendicitis Acute Acute coronary syndrome Acute Anxiety Acute Chest pain Acute Palpitations Acute
== END 2016-07-31 15:21 | disposition home or self-care (01) ==
LOC: F1N 20:04
PROVIDERS: ADMIT Surgery; ATTEND Surgery
DX: R11.2 Nausea with vomiting, unspecified (principal); K59.03 Drug induced constipation; G89.29 Other chronic pain; T40.2X5A Adverse effect of other opioids, initial encounter; Z79.891 Long term (current) use of opiate analgesic; E06.3 Autoimmune thyroiditis; F32.9 Major depressive disorder, single episode, unspecified; Z87.442 Personal history of urinary calculi
CPT/HCPCS: 74020; G0378; 96374; J1170; J2405; J3010

== ENCOUNTER 2016-08-10 13:51 | Emergency (ER) | payer MEDICAID ==
[2016-08-10 14:06] VITALS: O2SAT 98
--- NOTE | 2016-08-10 14:18 | EDPHY ---
H & P Stated Complaint: MH Eval Source: Patient, Family - Personal History LMP (Females 10-55): 1-7 Days Ago Current Tetanus Diphtheria and Acellular Pertussis (TDAP): Yes Tetanus Vaccine Date: 2011 - Medical/Surgical History Hx Asthma: No Hx Chronic Respiratory Disease: No Hx Diabetes: No Hx Cardiac Disease: Yes Hx Renal Disease: No Hx Cirrhosis: No Hx Alcoholism: No Hx HIV/AIDS: No Hx Splenectomy or Spleen Trauma: No Other PMH: PMH- HASHIMOTOS, hypothyroid, depression, ovarian cysts, MTHFR, DDD, KIDNEY STONES, SVT, anxiety, arthritis, MIGRAINE, prinzmetal angina. PSH- THYROIDECTOMY, , UTERINE SEPTATE REMOVAL/appy, thyroidectomy - Social History Smoking Status: Never smoked Time Seen by Provider: 08/10/16 14:17 HPI/ROS: CHIEF COMPLAINT: Anxiety and depression HISTORY OF PRESENT ILLNESS: This is a 46-year-old female presenting to the emergency department reports increase in depression and anxiety over the past couple of weeks, since her grandmother passing away in June of 2016. patient here voluntarily states it seems like symptoms have worsened over the past few days, patient states she does not feel like getting out of bed, activity has declined where she just does not feel like doing anything. Denies any suicidal ideation at this time she states "if it was not for my daughter I would probably have a plan, but I do not want to leave her " patient states she has had previous suicidal ideation with attempt in 1995, 1996 OD on Ativan. And patient also reports her medication for depression anxiety was switched 5 months ago from Lexapro to Cymbalta, also taking Ativan p.r.n.. This been several months since she has seen her psychiatrist Princess Bynum REVIEW OF SYSTEMS: Constitutional: No fever, no chills. Eyes: No discharge. ENT: No sore throat. Cardiovascular: No chest pain, no palpitations. Respiratory: No cough, no shortness of breath. Gastrointestinal: No abdominal pain, no vomiting. Genitourinary: No hematuria. Musculoskeletal: No back pain. Skin: No rashes. Neurological: No headache. (Mayela Smith) - Physical Exam Exam: General Appearance: Alert, no distress. Eyes: Pupils equal and round no pallor or injection. ENT, Mouth: Mucous membranes moist. Respiratory: There are no retractions, lungs are clear to auscultation. Cardiovascular: Regular rate and rhythm. Gastrointestinal: Abdomen is soft and nontender, no masses, bowel sounds normal. Neurological: No focal deficits. Skin: Warm and dry, no rashes. Musculoskeletal: Neck is supple nontender. Extremities: symmetrical, full range of motion. Psychiatric: Patient is oriented X 3, there is no agitation. Tearful flat affect (Mayela Smith) Constitutional: Initial Vital Signs Temperature (C) 36.5 C 08/10/16 13:57 Heart Rate 110 H 08/10/16 13:57 Respiratory Rate 14 08/10/16 13:57 Blood Pressure 130/85 H 08/10/16 13:57 O2 Sat (%) 98 08/10/16 13:57 O2 Delivery Mode Room Air Allergies/Adverse Reactions: nifedipine Allergy (Severe, Verified 07/30/16 16:13) Other-Enter Comments ketorolac tromethamine [From Toradol] Allergy (Intermediate, Verified 07/30/16 16:13) EXERBATION OF ANXIETY amoxicillin trihydrate [From Augmentin] Allergy (Mild, Verified 07/30/16 16:13) TINNITIS metoclopramide HCl [From Reglan] Allergy (Verified 07/30/16 16:13) Anxiety potassium clavulanate [From Augmentin] Allergy (Verified 07/30/16 16:13) Home Medications: Medication Instructions Recorded Calcium Carbonate [Tums 500MG (*)] 1,000 mg PO TIDMEAL PRN 07/30/16 Chlorthalidone [Chlorthalidone 25 25 mg PO DAILY 07/30/16 mg (*)] DULoxetine [Cymbalta 60 MG (*)] 60 mg PO DAILY 07/30/16 Ferrous Sulfate [Ferrous Sulf 325 325 mg PO DAILY 07/30/16 MG (*)] LORazepam [Ativan (*)] 1 mg PO DAILY PRN 07/30/16 Levothyroxine [Synthroid 200 mcg 200 mcg PO DAILY 07/30/16 (*)] Lisinopril [Zestril 40 mg (*)] 40 mg PO HS 07/30/16 Magnesium Oxide [Magnesium Oxide 400 mg PO DAILY 07/30/16 400 mg (*)] Multivitamins [Multivitamin (*)] 1 each PO DAILY 07/30/16 oxyCODONE HCL/ACETAMINOPHEN 2 each PO TID PRN 07/30/16 [Percocet 7.5-325 mg Tablet] Medical Decision Making ED Course/Re-evaluation: Discussed the plan of care: CBC, CMP, drug tox screen, Hcg , psych evaluation 1455: Patient feeling anxious Ativan ordered 1 mg 1615: Patient resting comfortably not in any distress, calm 1705: Report handed off to Dr. Cotter. Patient stable, resting, calm not in any distress (Mayela Smith) 7:40 p.m. the patient has been evaluated by Mental Health. They would like to transfer her to a crisis stabilization unit and will begin looking for a bed. She is not on a M1 hold and will not require one. 9:20 p.m. care transferred to Dr. Fidel An at shift change. (Samuel Cotter) Differential Diagnosis: Other differential diagnosis considered but not limited to bridget, altered mental status due to drug intoxication, and suicide attempt (Mayela Smith) Other Provider: Patient signed out to me by Dr. Cotter. At 10:50pm, I was notified that the patient had been accepted at a CSU in [place] but patient refuses to go. Their new plan is recommended discharge home with follow-up. (Fidel An) - Data Points Laboratory Results: Laboratory Results 08/10/16 14:50 08/10/16 08/10/16 08/10/16 15:10 14:50 14:50 WBC RBC Hgb Hct MCV MCH MCHC RDW Plt Count MPV Neut % (Auto) Lymph % (Auto) Green % (Auto) Eos % (Auto) Baso % (Auto) Nucleat RBC Rel Count Absolute Neuts (auto) Absolute Lymphs (auto) Absolute Monos (auto) Absolute Eos (auto) Absolute Basos (auto) Absolute Nucleated RBC Immature Gran % Immature Gran # Beta HCG, Qual NEGATIVE Urine Opiates Screen NEGATIVE (NEGATIVE) Urine Barbiturates NEGATIVE (NEGATIVE) Ur Phencyclidine Scrn NEGATIVE (NEGATIVE) Ur Amphetamine Screen NEGATIVE (NEGATIVE) U Benzodiazepines Scrn NEGATIVE (NEGATIVE) Urine Cocaine Screen NON-NEGATIVE H (NEGATIVE) U Marijuana (THC) Screen NEGATIVE (NEGATIVE) Ethyl Alcohol < 10 mg/dL mg/dL (0-10) 08/10/16 14:50 WBC 10.22 10^3/uL H 10^3/uL (3.80-9.50) RBC 4.19 10^6/uL 10^6/uL (4.18-5.33) Hgb 14.0 g/dL g/dL (12.6-16.3) Hct 39.5 % % (38.0-47.0) MCV 94.3 fL fL (81.5-99.8) MCH 33.4 pg pg (27.9-34.1) MCHC 35.4 g/dL g/dL (32.4-36.7) RDW 12.7 % % (11.5-15.2) Plt Count 548 10^3/uL H 10^3/uL (150-400) MPV 8.7 fL fL (8.7-11.7) Neut % (Auto) 58.6 % % (39.3-74.2) Lymph % (Auto) 33.1 % % (15.0-45.0) Green % (Auto) 7.0 % % (4.5-13.0) Eos % (Auto) 0.5 % L % (0.6-7.6) Baso % (Auto) 0.5 % % (0.3-1.7) Nucleat RBC Rel Count 0.0 % % (0.0-0.2) Absolute Neuts (auto) 5.99 10^3/uL 10^3/uL (1.70-6.50) Absolute Lymphs (auto) 3.38 10^3/uL H 10^3/uL (1.00-3.00) Absolute Monos (auto) 0.72 10^3/uL 10^3/uL (0.30-0.80) Absolute Eos (auto) 0.05 10^3/uL 10^3/uL (0.03-0.40) Absolute Basos (auto) 0.05 10^3/uL 10^3/uL (0.02-0.10) Absolute Nucleated RBC 0.00 10^3/uL 10^3/uL (0-0.01) Immature Gran % 0.3 % % (0.0-1.1) Immature Gran # 0.03 10^3/uL 10^3/uL (0.00-0.10) Beta HCG, Qual Urine Opiates Screen Urine Barbiturates Ur Phencyclidine Scrn Ur Amphetamine Screen U Benzodiazepines Scrn Urine Cocaine Screen U Marijuana (THC) Screen Ethyl Alcohol Medications Given: Discontinued Medications Ferrous Sulfate (Ferrous Sulfate) 325 mg PO DAILY KIM Stop: 02/06/17 19:59 Last Admin: 08/10/16 20:03 Dose: 325 mg Lisinopril (Zestril) 40 mg PO DAILY KIM Stop: 02/06/17 19:59 Last Admin: 08/10/16 20:04 Dose: 40 mg Lorazepam (Ativan) 1 mg PO EDNOW ONE Stop: 08/10/16 14:51 Last Admin: 08/10/16 14:50 Dose: 1 mg Oxycodone/Acetaminophen (Percocet 5/325) 2 tab PO EDNOW ONE Stop: 08/10/16 19:51 Last Admin: 08/10/16 19:56 Dose: 2 tab Departure - Departure Disposition: Other Psych, Not Elena Clinical Impression: Suicidal ideation, Anxiety and depression Condition: Good Instructions: Suicide Prevention for Adults (ED) Referrals: Juliana Mayes MD [Primary Care Provider] - As per Instructions
[2016-08-10] MEDS ORDERED: LORazepam 1 MG TAB ONE (14:40)
[2016-08-10] MEDS ORDERED: LORazepam 1 MG TAB PO ONE (14:50)
[2016-08-10 15:13] LABS: % IMMATURE GRANULYOCYTES 0.3 % (0.0-1.1); ABSOLUTE IMMATURE GRANULOCYTES 0.03 10^3/uL (0.00-0.10); ADD DIFF? NO; ADD MORPH? NO; ADD SCAN? NO; ATYPICAL LYMPHOCYTE FLAG 0 (0-99); FRAGMENT RBC FLAG 0 (0-99); HEMATOCRIT 39.5 % (38.0-47.0); LEFT SHIFT FLG 0 (0-99); LIPEMIA HEMOLYSIS FLAG 90 (0-99); MEAN CELL HEMOGLOBIN 33.4 pg (27.9-34.1); MEAN CELL HEMOGLOBIN CONCENTR. 35.4 g/dL (32.4-36.7); MEAN CELL VOLUME 94.3 fL (81.5-99.8); MEAN PLATELET VOLUME 8.7 fL (8.7-11.7); PLATELET CLUMPS FLAG 10 (0-99); PLATELET COUNT 548 10^3/uL (150-400); RED BLOOD CELL COUNT 4.19 10^6/uL (4.18-5.33); RED CELL DISTRIBUTION WIDTH 12.7 % (11.5-15.2)
[2016-08-10 15:18] LABS: ETHANOL SERUM < 10 mg/dL (0-10)
[2016-08-10 17:14] VITALS: RESP 20; TEMP 98.4
[2016-08-10] MEDS ORDERED: OXYCODONE/APAP 5/325 TAB PO ONE (19:50)
[2016-08-10] MEDS ORDERED: FERROUS SULFATE 325 MG TAB PO SCH (20:00)
[2016-08-10] MEDS ORDERED: LISINOPRIL 40 MG TAB PO SCH (20:00)
[2016-08-10 23:22] VITALS: BP 138/92; PULSE 80
== END 2016-08-10 23:21 ==
DX: F41.8 Other specified anxiety disorders (principal); R45.851 Suicidal ideations
CPT/HCPCS: 80305; G0480

== ENCOUNTER 2016-09-30 12:59 | Emergency (ER) | payer MEDICAID ==
--- NOTE | 2016-09-30 13:16 | CPEKG ---
Heart Rate: 104 RR Interval: 577 P-R Interval: 124 QRSD Interval: 74 QT Interval: 340 QTC Interval: 448 P [place]: 48 QRS [place]: -8 T Wave [place]: 68 EKG Severity - OTHERWISE NORMAL ECG - EKG Impression: SINUS TACHYCARDIA Electronically Signed By: Galdino Shah 30-Sep-2016 15:10:16
[2016-09-30] MEDS ORDERED: ONDANSETRON 4 MG/2 ML VIAL ONE (13:43)
[2016-09-30] MEDS ORDERED: ONDANSETRON 4 MG/2 ML VIAL IVP ONE (13:45)
[2016-09-30 13:52] LABS: % IMMATURE GRANULYOCYTES 0.3 % (0.0-1.1); ABSOLUTE IMMATURE GRANULOCYTES 0.03 10^3/uL (0.00-0.10); ADD DIFF? NO; ADD MORPH? NO; ADD SCAN? NO; ATYPICAL LYMPHOCYTE FLAG 0 (0-99); FRAGMENT RBC FLAG 0 (0-99); HEMATOCRIT 36.7 % (38.0-47.0); HEMOGLOBIN 13.2 g/dL (12.6-16.3); LEFT SHIFT FLG 0 (0-99); LIPEMIA HEMOLYSIS FLAG 90 (0-99); MEAN CELL HEMOGLOBIN 33.4 pg (27.9-34.1); MEAN CELL VOLUME 92.9 fL (81.5-99.8); MEAN PLATELET VOLUME 8.4 fL (8.7-11.7); PLATELET CLUMPS FLAG 0 (0-99); PLATELET COUNT 456 10^3/uL (150-400); RED BLOOD CELL COUNT 3.95 10^6/uL (4.18-5.33)
[2016-09-30 13:59] LABS: ANION GAP 13 mEq/L (8-16); CALCIUM 10.3 mg/dL (8.5-10.4); CARBON DIOXIDE 23 mEq/l (22-31); CHLORIDE 98 mEq/L (97-110); CREATININE 0.8 mg/dL (0.6-1.0); GLOMERULAR FILTRATION RATE > 60; GLUCOSE 104 mg/dL (70-100); POTASSIUM 4.3 mEq/L (3.5-5.2); SODIUM 134 mEq/L (134-144)
[2016-09-30] MEDS ORDERED: LORazepam 2 MG/ML INJ ONE (14:06)
[2016-09-30] MEDS ORDERED: LORazepam 2 MG/ML INJ IVP ONE (14:08)
[2016-09-30 14:12] LABS: TROPONIN I < 0.012 ng/mL (0-0.034)
[2016-09-30 14:13] LABS: INR 0.95 (0.83-1.16); PROTIME(PATIENT) 12.6 SEC (12.0-15.0)
[2016-09-30 14:14] LABS: APTT 27.6 SEC (23.0-38.0)
--- NOTE | 2016-09-30 14:14 | EDPHY ---
H & P Time Seen by Provider: 09/30/16 13:16 HPI/ROS: HPI Chest pain. 46-year-old female by private vehicle. She has a history of anxiety and Prinzmetal angina. Her atomic spectroscopist is Dr. Rubén Wallis. She had a clean coronary angiogram in January of 2016. She has been treated with nifedipine but developed an allergy to this medication this was stopped. She has had repeated episodes of chest discomfort which she describes as a tightness and aching in her mid upper chest. She reports that she gets no relief from nitroglycerin. She reports that she also gets chest discomfort with anxiety reactions. She is not sure today if this is from her Prinzmetal angina or her anxiety. She has been seen multiple times in our emergency department for similar complaints and has had extensive workup all of which has been unremarkable. She reports onset of pain yesterday evening. Then got better but then returned before going to bed last night and she woke up with it again this morning. ROS: Constitutional: No fever, no chills. No weakness. Eyes: No discharge. No changes in vision. ENT: No sore throat. No nasal congestion or rhinorrhea. Respiratory: No cough. No shortness of breath. Cardiac: As above, no palpitations. Gastrointestinal: No abdominal pain, no vomiting, no diarrhea. Genitourinary: No hematuria. No dysuria or increased frequency with urination. Musculoskeletal: No back pain. No neck pain. No myalgias or arthralgias. Skin: No rashes. Neurological: No headache. No focal weakness or altered sensation. Past medical history: Juan's thyroiditis, recent thyroidectomy, currently on Synthroid, depression, anxiety, ovarian cysts, Social history: Nonsmoker. Here by herself. Denies alcohol. Physical Exam: General Appearance: Alert, anxious. This patient is responding to questions appropriately and in full sentences. This patient appears well-hydrated and well-nourished. Eyes: Pupils equal and round no pallor or injection. No lid edema, erythema or injection. Respiratory: There are no retractions, lungs are clear to auscultation with good air movement bilaterally. Cardiovascular: Regular rate and rhythm. No murmur. Gastrointestinal: Abdomen is soft and nontender, no masses, bowel sounds normal. No focal tenderness at McBurney's point. No Richards sign. Neurological: Motor sensory function is grossly intact. Cranial nerves are normal. Gait is normal. Skin: Warm and dry, no rashes. Musculoskeletal: Neck is supple and nontender. Extremities are symmetrical. All joints range without pain or impingement. Psychiatric: No agitation. No depression. Database: EKG: EKG time is 1:14 p.m.; EKG shows a narrow complex normal sinus rhythm with a ventricular rate of 104. The UT, QRS, QT intervals are within normal limits. There are no ST-T wave changes indicative of ischemic or injury pattern. No evidence of right heart strain. Interpreted by me. Imaging: Chest x-ray AP portable; the cardiac mediastinal silhouette is unremarkable. No evidence of infiltrate or pneumothorax. No acute cardiopulmonary disease process noted. Interpreted by me. Procedures: Emergency department course: IV was placed. She was started on IV normal saline with 500 cc to be given over the next hour. She was initially given 2 mg of IV morphine and 4 mg of IV Zofran. EKG performed and reviewed by myself. After my evaluation at 2:10 p.m., she was given 0.5 mg of IV Ativan. 2:40 p.m., patient re-evaluated. She feels much better after the Ativan as above. She denies any chest pain or discomfort at this time. She feels comfortable going home and I feel she is safe for discharge. I will prescribe her a small number of Ativan tablets. She will follow up with her atomic spectroscopist tomorrow or Tuesday for re-evaluation. Return to emergency department precautions were thoroughly reviewed with her. All of her questions were answered. She was discharged in good condition. Patient notified of elevated TSH and Synthroid dosing discussed with nursing staff. Patient follow-up with financial aid officer for reevaluation and adjustment of Synthroid dosing. Differential Diagnosis: The differential diagnosis on this patient includes but is not limited to Prinzmetal angina, anxiety reaction. Acute coronary syndrome, pulmonary embolism, myocarditis, pericarditis, aortic dissection unlikely. This represents a partial list of diagnoses considered. These considerations are based on history, physical exam, past history, reassessment and diagnostic testing. Smoking Status: Never smoked Constitutional: Initial Vital Signs Temperature (C) 37 C 09/30/16 13:00 Heart Rate 98 09/30/16 13:00 Respiratory Rate 18 09/30/16 13:00 Blood Pressure 125/92 H 09/30/16 13:00 O2 Sat (%) 97 09/30/16 13:00 O2 Delivery Mode Room Air Allergies/Adverse Reactions: nifedipine Allergy (Severe, Verified 09/30/16 13:00) Other-Enter Comments ketorolac tromethamine [From Toradol] Allergy (Intermediate, Verified 09/30/16 13:00) EXERBATION OF ANXIETY amoxicillin trihydrate [From Augmentin] Allergy (Mild, Verified 09/30/16 13:00) TINNITIS metoclopramide HCl [From Reglan] Allergy (Verified 09/30/16 13:00) Anxiety potassium clavulanate [From Augmentin] Allergy (Verified 09/30/16 13:00) Home Medications: Medication Instructions Recorded Calcium Carbonate [Tums 500MG (*)] 1,000 mg PO TIDMEAL PRN 07/30/16 Chlorthalidone [Chlorthalidone 25 25 mg PO DAILY 07/30/16 mg (*)] DULoxetine [Cymbalta 60 MG (*)] 60 mg PO DAILY 07/30/16 Ferrous Sulfate [Ferrous Sulf 325 325 mg PO DAILY 07/30/16 MG (*)] LORazepam [Ativan (*)] 1 mg PO DAILY PRN 07/30/16 Levothyroxine [Synthroid 200 mcg 200 mcg PO DAILY 07/30/16 (*)] Lisinopril [Zestril 40 mg (*)] 40 mg PO HS 07/30/16 Magnesium Oxide [Magnesium Oxide 400 mg PO DAILY 07/30/16 400 mg (*)] LORazepam [Ativan (*)] 1 mg PO Q6-8PRN PRN #7 tab 09/30/16 Medical Decision Making - Data Points Laboratory Results: Laboratory Results 09/30/16 13:05 09/30/16 13:05 Medications Given: Discontinued Medications Lorazepam (Ativan Injection) 0.5 mg IVP EDNOW ONE Stop: 09/30/16 14:09 Last Admin: 09/30/16 14:09 Dose: 0.5 mg Morphine Sulfate (Morphine) 2 mg IVP EDNOW ONE Stop: 09/30/16 13:17 Last Admin: 09/30/16 13:37 Dose: 2 mg Ondansetron HCl (Zofran) 4 mg IVP EDNOW ONE Stop: 09/30/16 13:46 Last Admin: 09/30/16 13:46 Dose: 4 mg Departure - Departure Disposition: Home, Routine, Self-Care Clinical Impression: Chest pain, History of Prinzmetal angina, Anxiety Condition: Good Instructions: Chest Pain (ED), Anxiety (ED) Additional Instructions: Read and follow provided instructions. Follow-up with your atomic spectroscopist, Dr. Rubén Wallis, tomorrow or Tuesday for re- evaluation. Take medication as prescribed. Ativan 1 mg tablets, take 1 every 8 hours as needed for anxiety. Return to the emergency department for worsening chest pain, shortness of breath or other serious concerns. Referrals: Dominique Victor FNP [Primary Care Provider] - As per Instructions Prescriptions: LORazepam [Ativan (*)] 1 mg PO Q6-8PRN PRN #7 tab PRN Reason: For Anxiety
[2016-09-30 14:58] VITALS: BP 117/76; PULSE 96; RESP 16; TEMP 98.6; O2SAT 96
== END 2016-09-30 14:58 | disposition home or self-care (01) ==
DX: R07.9 Chest pain, unspecified (principal); F41.9 Anxiety disorder, unspecified; Z86.79 Personal history of other diseases of the circulatory system
CPT/HCPCS: 96374; J2060; J2405

== ENCOUNTER 2016-10-26 12:55 | Inpatient (IN) | payer MEDICAID ==
--- NOTE | 2016-10-26 13:04 | CPEKG ---
Heart Rate: 115 RR Interval: 522 P-R Interval: 132 QRSD Interval: 82 QT Interval: 340 QTC Interval: 471 P [place]: 51 QRS [place]: 7 T Wave [place]: 23 EKG Severity - BORDERLINE ECG - EKG Impression: SINUS TACHYCARDIA EKG Impression: BORDERLINE T WAVE ABNORMALITIES Electronically Signed By: Pat Damon 26-Oct-2016 17:12:29
[2016-10-26 13:09] LABS: % IMMATURE GRANULYOCYTES 0.4 % (0.0-1.1); ABSOLUTE IMMATURE GRANULOCYTES 0.04 10^3/uL (0.00-0.10); ADD DIFF? NO; ADD MORPH? NO; ADD SCAN? NO; ATYPICAL LYMPHOCYTE FLAG 0 (0-99); FRAGMENT RBC FLAG 0 (0-99); HEMATOCRIT 39.6 % (38.0-47.0); HEMOGLOBIN 14.7 g/dL (12.6-16.3); LEFT SHIFT FLG 0 (0-99); LIPEMIA HEMOLYSIS FLAG 90 (0-99); MEAN CELL HEMOGLOBIN 33.5 pg (27.9-34.1); MEAN CELL HEMOGLOBIN CONCENTR. 37.1 g/dL (32.4-36.7); MEAN CELL VOLUME 90.2 fL (81.5-99.8); MEAN PLATELET VOLUME 8.7 fL (8.7-11.7); PLATELET CLUMPS FLAG 10 (0-99); PLATELET COUNT 536 10^3/uL (150-400); RED BLOOD CELL COUNT 4.39 10^6/uL (4.18-5.33)
[2016-10-26 13:24] LABS: ANION GAP 16 mEq/L (8-16); CARBON DIOXIDE 26 mEq/l (22-31); CHLORIDE 83 mEq/L (97-110); CREATININE 0.8 mg/dL (0.6-1.0); GLOMERULAR FILTRATION RATE > 60; GLUCOSE 130 mg/dL (70-100); POTASSIUM 3.7 mEq/L (3.5-5.2); SODIUM 125 mEq/L (134-144)
[2016-10-26 13:35] LABS: TROPONIN I < 0.012 ng/mL (0-0.034)
[2016-10-26] MEDS ORDERED: LORazepam 2 MG/ML INJ IVP ONE (13:59)
[2016-10-26] MEDS ORDERED: ONDANSETRON 4 MG/2 ML VIAL IVP ONE (14:01)
[2016-10-26] MEDS ORDERED: NS 500 ML IV ONE (15:11)
[2016-10-26] MEDS ORDERED: ONDANSETRON 4 MG/2 ML VIAL IVP PRN (15:21)
[2016-10-26] MEDS ORDERED: ACETAMINOPHEN 325 MG TAB PO PRN (15:21)
[2016-10-26] MEDS ORDERED: diphenhydrAMINE 25 MG CAP PO PRN (15:21)
[2016-10-26] MEDS ORDERED: LORazepam 0.5 MG TAB PO PRN (15:21)
[2016-10-26] MEDS ORDERED: ONDANSETRON DISINTEGRATING 4 MG TAB PO PRN (15:21)
[2016-10-26] MEDS ORDERED: NS 1,000 ML IV SCH (15:30)
[2016-10-26] MEDS ORDERED: NITROGLYCERIN 0.4 MG BTL SL PRN (15:35)
--- NOTE | 2016-10-26 16:27 | GHP ---
[f rep st] HISTORY AND PHYSICAL DATE OF ADMISSION: 10/26/2016 CHIEF COMPLAINT: Chest pain, nausea, vomiting and headache. HISTORY OF PRESENT ILLNESS: The patient is a 46-year-old female with history of recurrent chest pain who has been diagnosed by Dr. Wallis with Prinzmetal angina, presents to the emergency department with recurring left chest pain. She had a negative angiogram in November of 2015. Since that time, she has had several ER visits for recurring chest pain, anxiety and headaches. She returns to the emergency department today initially reporting recurring left- sided chest pain with worsening anxiety. She also has a history of migraine headaches. She states she developed a migraine headache yesterday and vomited all night. She has had little oral intake. Workup in the emergency department reveals a low sodium. She has not had any IV fluids yet, but her heart rate has trended up to 120. Due to concern for volume depletion and hyponatremia, she is admitted to the hospital for further management. At this time, she denies chest pain or shortness of breath. She received IV Ativan, IV morphine and IV Zofran in the emergency department. PAST MEDICAL AND SURGICAL HISTORY: 1. Recurring chest pain secondary to Prinzmetal angina. 2. Juan's thyroiditis. Status post thyroidectomy. 3. Appendicitis with appendectomy July of 2016. 4. Migraine headaches. 5. Anxiety and depression. 6. History of ovarian cysts. 7. Degenerative disk disease. 8. History of kidney stones. 9. History of SVT. 10. . MEDICATIONS: Please see [facility] for complete updated outpatient medication list. ALLERGIES: Nifedipine, Toradol, amoxicillin, Reglan, potassium. FAMILY HISTORY: Her grandfather had an OR. SOCIAL HISTORY: The patient is a lifelong nonsmoker. She drinks alcohol occasionally. REVIEW OF SYSTEMS: A 10-point Review of Systems was performed and is negative except as per HPI. OBJECTIVE: VITAL SIGNS: Current vital signs, temperature is 36.9, blood pressure 140/87, heart rate is 110, respiratory rate 14 to 20, she is 96% on room air. GENERAL: The patient is awake, alert, oriented, in no acute distress. HEENT: Head is atraumatic, normocephalic. Pupils equal, round, react to light. Extraocular muscles intact. Oropharynx is clear. Mucous membranes are moist. NECK: Supple. There is no JVD. HEART: Tachycardic without murmur. LUNGS: Clear to auscultation bilaterally. ABDOMEN: Soft, nondistended, nontender with normoactive bowel sounds. EXTREMITIES: Without cyanosis, clubbing, or edema. NEUROLOGIC: Grossly nonfocal. LABORATORY DATA: CBC reveals a white blood cell count of 10.8, platelets are 536. Basic metabolic panel reveals a sodium of 125, chloride 83, creatinine is normal at 0.8, glucose 132, calcium 12, troponin is negative. Thyroid studies are pending. Qualitative beta HCG is pending. Chest x-ray negative. I personally reviewed and interpreted as negative for acute cardiopulmonary process. EKG on arrival shows normal sinus tachycardia with minimal ST depression in V3 and V4, otherwise, no changes suggestive of acute ischemia. ASSESSMENT AND PLAN: The patient is a 46-year-old female with history of Prinzmetal's angina, recurring chest pain, anxiety, migraines, nausea and vomiting who is admitted to the hospital with hyponatremia. 1. Hyponatremia. Sodium on arrival was 125. Will send urine sodium and urine osmolality studies for further evaluation. I suspect this is volume depletion given her history of nausea and vomiting leading up to her presentation. She has been started on normal saline. We will recheck chemistry panel later this evening and adjust fluids as needed. 2. Hypercalcemia. This is likely hemoconcentration. Again, she is being hydrated and we will recheck a basic metabolic panel this evening. 3. Tachycardia. I suspect volume depletion. We will see how she responds to fluids. She has no hypoxemia and denies shortness of breath. My suspicion for pulmonary embolism is low. However, if her tachycardia persists despite IV fluid hydration, will consider further workup for pulmonary embolism. 4. Chest pain. Improved at this time. This is consistent with her recurring Prinzmetal angina. Will go ahead and trend her troponin and provide p.r.n. nitroglycerin. If this is helpful, could also consider addition of Ranexa given her recurring symptoms. 5. Nausea and vomiting in the setting of migraine headache. The patient has responded well to Zofran. I will provide supportive care with Tylenol, antiemetics and Benadryl. She apparently gets worsening anxiety with Toradol so will defer this for now. 6. Anxiety. This may be provoking her tachycardia. Will provide p.r.n. lorazepam. 7. History of Juan thyroiditis. We will send a thyroid panel to ensure her she is not hyperthyroid as a contributory factor to her presentation with tachycardia and headaches. If these are within normal limits, will continue her outpatient levothyroxine dose once her medication reconciliation is completed. 8. Deep venous thrombosis prophylaxis. Patient is low risk. We will place SCDs for now. Should she require prolonged hospitalization, would consider addition of Lovenox. 9. Code status. Patient is full code. 10. Disposition. Patient admitted to observation status. If her labs improve and her symptoms resolve, she may be a candidate for discharge in the morning. Otherwise, will need to be changed to inpatient should further workup or management be required. /[id number]/MODL MTDD
--- NOTE | 2016-10-26 17:02 | EDPHY ---
H & P Stated Complaint: Chest pain Time Seen by Provider: 10/26/16 13:45 HPI/ROS: CHIEF COMPLAINT: Chest pain, migraine headache HISTORY OF PRESENT ILLNESS: This is a 46-year-old female who has been diagnosed with Prinzmetal's angina. She has had cardiac catheterization. Her gis coordinator is Dr. Wallis. She presents today with left-sided chest pain, similar to what she has experienced in the past. She also has a history of anxiety and usually tries some Ativan initially when she has chest pain. She did take Ativan earlier today but had no relief of her chest pain. Pain is located in the left upper chest and is a dull pressure-like sensation. It does not radiate. She also reports a migraine headache that began yesterday. It has been persistent. She was up most of the night with vomiting. She has been unable to keep down much in the way of medication or fluid. She was seen in the ED on 09/30/16 with chest pain. REVIEW OF SYSTEMS: A ten point review of systems was performed and is negative with the exception of the items mentioned in the HPI. Source: Patient, Old records Exam Limitations: No limitations - Personal History Tetanus Vaccine Date: 2011 - Medical/Surgical History PMH: 1. Prinzmetal's angina 2. Migraine headache 3. Juan's thyroiditis s/p thyroidectomy 4. Anxiety 5. Ovarian cysts Hx Asthma: No Hx Chronic Respiratory Disease: No Hx Diabetes: No Hx Cardiac Disease: Yes Hx Renal Disease: No Hx Cirrhosis: No Hx Alcoholism: No Hx HIV/AIDS: No Hx Splenectomy or Spleen Trauma: No - Social History Smoking Status: Never smoked Additional Social History: She lives with her [facility]. She does not use tobacco, alcohol, or illicits. - Physical Exam Exam: General Appearance: Alert. Vital signs reviewed. BP 140/87, HR116 at triage. Eyes: Pupils equal and round, no conjunctival injection, no discharge. Anicteric. ENT, Mouth: Mucous membranes are moist, no oropharyngeal erythema or edema. Neck: No lymphadenopathy, supple. No JVD. Respiratory: Lungs are clear to auscultation; no wheezes, rales, or rhonchi. Cardiovascular: Tachycardic at 1:20 a.m.; no murmur, rub, or gallop. Gastrointestinal: Abdomen is soft and nontender, no masses or organomegaly, bowel sounds normal. Skin: Warm and dry, no rashes on exposed skin, normal color. Back: Nontender to palpation over the thoracolumbar spine. No CVAT. Extremities: No lower extremity edema, no calf tenderness or swelling. Neurological: Alert and oriented. Moving all four extremities easily and equally. HERMES. EOMI. Facial expression symmetric. Tongue midline. Psychiatric: Normal affect. Constitutional: Initial Vital Signs Temperature (C) 36.9 C 10/26/16 12:59 Heart Rate 116 H 10/26/16 12:59 Respiratory Rate 20 10/26/16 12:59 Blood Pressure 140/87 H 10/26/16 12:59 O2 Sat (%) 96 10/26/16 12:59 O2 Delivery Mode Room Air Allergies/Adverse Reactions: nifedipine Allergy (Severe, Verified 09/30/16 13:00) Other-Enter Comments ketorolac tromethamine [From Toradol] Allergy (Intermediate, Verified 09/30/16 13:00) EXERBATION OF ANXIETY amoxicillin trihydrate [From Augmentin] Allergy (Mild, Verified 09/30/16 13:00) TINNITIS metoclopramide HCl [From Reglan] Allergy (Verified 09/30/16 13:00) Anxiety potassium clavulanate [From Augmentin] Allergy (Verified 09/30/16 13:00) Home Medications: Medication Instructions Recorded DULoxetine [Cymbalta 60 MG (*)] 60 mg PO DAILY 07/30/16 Ferrous Sulfate [Ferrous Sulf 325 325 mg PO DAILY 07/30/16 MG (*)] LORazepam [Ativan (*)] 1 mg PO DAILY PRN 07/30/16 Levothyroxine [Synthroid 200 mcg 200 mcg PO DAILY 07/30/16 (*)] Magnesium Oxide [Magnesium Oxide 400 mg PO DAILY 07/30/16 400 mg (*)] Medical Decision Making - Diagnostics EKG Interpretation: 12 lead EKG is interpreted in Trace master View by emergency department physician. Sinus tachycardia. There is some ST depression in the leads V3, V4 , and less so in V5. ED Course/Re-evaluation: This is a 46 year old female with h/o Prinzmetal's and migraine who appears to be suffering from both. Her initial EKG and troponin are normal. She requested morphine, which has helped her pain in the past and was given 4 mg IV morphine with mimimal relief. She has not been able to eat and drink for the past 24 hours because of migraine /vomiting. She received ativan IV, zofran IV and IVF in the ED. No vomiting but she had persistent tachycardia with HR over 110. I suspect that this is a combination of anxiety and dehydration. She has sodium of 125 and slight elevation in calcium. She does not feel that she can return home and I agree. She is currently unable to tolerate PO and remains tachycardic. I doubt PE. Wells score zero. She will be admitted for continued troponins, treatment of Nausea, treatment of headache (she cannot tolerate toradol), treatment of hyponatremia. Differential Diagnosis: I considered ddx of headache including but not limited to migraine, SAH, tension headache, dehydration. I considered ddx of chest pain including but not limited to Prinzmetals, ACS, PE , infection, pericarditis. - Data Points Laboratory Results: Laboratory Results 10/27/16 04:27 10/27/16 18:32 Medications Given: Discontinued Medications Cosyntropin (Cortrosyn Syringe) 0.25 mg IVP DAILY@0600 ONE Stop: 10/28/16 06:01 Last Admin: 10/28/16 05:36 Dose: 0.25 mg Duloxetine HCl (Cymbalta) 60 mg PO DAILY KIM Stop: 04/25/17 08:59 Last Admin: 10/28/16 09:52 Dose: 60 mg Ferrous Sulfate (Ferrous Sulfate) 325 mg PO DAILY KIM Stop: 04/25/17 08:59 Last Admin: 10/28/16 09:52 Dose: Not Given Sodium Chloride (Ns) 500 mls @ 0 mls/hr IV ONCE ONE PRN Reason: Wide Open Stop: 10/26/16 15:12 Last Admin: 10/26/16 15:29 Dose: 500 mls Sodium Chloride (Ns) 1,000 mls @ 100 mls/hr IV CONT KIM Stop: 04/24/17 15:29 Last Admin: 10/26/16 17:26 Dose: 1,000 mls Potassium Chloride/Sodium Chloride (Ns W/ 20 Kcl/L) 1,000 mls @ 100 mls/hr IV CONT KIM Stop: 04/24/17 21:29 Last Admin: 10/27/16 02:18 Dose: 1,000 mls Sodium Chloride (Ns) 1,000 mls @ 0 mls/hr IV ONCE ONE PRN Reason: Wide Open Stop: 10/26/16 21:23 Last Admin: 10/26/16 21:31 Dose: 1,000 mls Sodium Chloride (Ns) 1,000 mls @ 100 mls/hr IV CONT KIM Stop: 04/25/17 19:29 Last Admin: 10/27/16 20:32 Dose: 1,000 mls Ibuprofen (Motrin) 600 mg PO Q6HRS PRN PRN Reason: Pain, Inflammatory Stop: 04/24/17 17:10 Last Admin: 10/27/16 20:46 Dose: 600 mg Levothyroxine Sodium (Synthroid) 200 mcg PO DAILY KIM Stop: 04/25/17 08:59 Last Admin: 10/28/16 09:51 Dose: 200 mcg Loperamide HCl (Imodium) 4 mg PO ONCE ONE Stop: 10/27/16 20:44 Last Admin: 10/27/16 21:16 Dose: 4 mg Lorazepam (Ativan Injection) 1 mg IVP EDNOW ONE Stop: 10/26/16 14:00 Last Admin: 10/26/16 14:11 Dose: 1 mg Lorazepam (Ativan) 0.5 - 1 mg PO Q6H PRN PRN Reason: Anxiety, Able to Take PO Stop: 04/24/17 15:20 Last Admin: 10/27/16 20:46 Dose: 1 mg Magnesium Oxide (Magnesium Oxide) 400 mg PO DAILY KIM Stop: 04/25/17 08:59 Last Admin: 10/28/16 09:51 Dose: Not Given Morphine Sulfate (Morphine) 4 mg IVP EDNOW ONE Stop: 10/26/16 14:18 Last Admin: 10/26/16 14:23 Dose: 4 mg Morphine Sulfate (Morphine) 1 - 2 mg IVP Q4HRS PRN PRN Reason: Pain, Severe Unable to Take PO Stop: 11/05/16 20:02 Last Admin: 10/27/16 00:17 Dose: 2 mg Ondansetron HCl (Zofran) 4 mg IVP EDNOW ONE Stop: 10/26/16 14:02 Last Admin: 10/26/16 14:11 Dose: 4 mg Ondansetron HCl (Zofran) 4 mg IVP Q4HRS PRN PRN Reason: Nausea/Vomiting, Can't Take PO Stop: 04/24/17 15:20 Last Admin: 10/26/16 16:56 Dose: 4 mg Potassium Chloride (Klor-Con) 40 meq PO ONCE ONE PRN Reason: Protocol Stop: 10/26/16 21:25 Last Admin: 10/26/16 21:31 Dose: 40 meq Potassium Chloride (Klor-Con) 10 meq PO ONCE ONE PRN Reason: Protocol Stop: 10/27/16 20:50 Last Admin: 10/27/16 21:16 Dose: 10 meq Promethazine HCl (Phenergan) 6.25 - 12.5 mg IVP Q6HRS PRN PRN Reason: Nausea/Vomiting, Use 2nd Stop: 04/24/17 15:20 Last Admin: 10/27/16 21:16 Dose: 12.5 mg Departure - Departure Disposition: [facility] Inpatient Acute Clinical Impression: Chest pain Qualifiers: Chest pain type: precordial pain Qualified Code(s): R07.2 - Precordial pain Migraine headache Qualifiers: Migraine type: without aura Status migrainosus presence: without status migrainosus Intractability: not intractable Qualified Code(s): G43.009 - Migraine without aura, not intractable, without status migrainosus Condition: Good
[2016-10-26] MEDS: IBUPROFEN 600 MG TAB PO PRN (17:27)
[2016-10-26] MEDS: PROMETHAZINE HCL 25 MG/ML INJ IVP PRN (19:38)
[2016-10-26 20:20] LABS: ANION GAP 11 mEq/L (8-16); CALCIUM 10.4 mg/dL (8.5-10.4); CARBON DIOXIDE 29 mEq/l (22-31); CHLORIDE 86 mEq/L (97-110); CREATININE 0.9 mg/dL (0.6-1.0); GLOMERULAR FILTRATION RATE > 60; GLUCOSE 145 mg/dL (70-100); POTASSIUM 2.9 mEq/L (3.5-5.2); SODIUM 126 mEq/L (134-144)
[2016-10-26] MEDS: LORazepam 0.5 MG TAB PO PRN (20:20)
[2016-10-26 20:32] LABS: TROPONIN I 0.014 ng/mL (0-0.034)
[2016-10-26] MEDS ORDERED: PROTOCOL POTASSIUM 1 DOSE MISC PRN (21:21)
[2016-10-26] MEDS ORDERED: NS 1,000 ML IV ONE (21:22)
[2016-10-26] MEDS ORDERED: POTASSIUM CL 10 MEQ TAB PO ONE (21:24)
[2016-10-26] MEDS ORDERED: NS W/ 20 KCl/L 1,000 ML IV SCH (21:30)
[2016-10-27 05:15] LABS: % IMMATURE GRANULYOCYTES 0.3 % (0.0-1.1); ABSOLUTE IMMATURE GRANULOCYTES 0.02 10^3/uL (0.00-0.10); ADD DIFF? NO; ADD MORPH? NO; ADD SCAN? NO; ATYPICAL LYMPHOCYTE FLAG 0 (0-99); FRAGMENT RBC FLAG 0 (0-99); HEMATOCRIT 31.3 % (38.0-47.0); HEMOGLOBIN 11.1 g/dL (12.6-16.3); LEFT SHIFT FLG 0 (0-99); LIPEMIA HEMOLYSIS FLAG 90 (0-99); MEAN CELL HEMOGLOBIN 33.4 pg (27.9-34.1); MEAN CELL HEMOGLOBIN CONCENTR. 35.5 g/dL (32.4-36.7); MEAN CELL VOLUME 94.3 fL (81.5-99.8); MEAN PLATELET VOLUME 8.8 fL (8.7-11.7); PLATELET CLUMPS FLAG 0 (0-99); PLATELET COUNT 366 10^3/uL (150-400); RED BLOOD CELL COUNT 3.32 10^6/uL (4.18-5.33); RED CELL DISTRIBUTION WIDTH 12.5 % (11.5-15.2)
[2016-10-27 05:32] LABS: ANION GAP 6 mEq/L (8-16); CALCIUM 9.3 mg/dL (8.5-10.4); CARBON DIOXIDE 27 mEq/l (22-31); CHLORIDE 97 mEq/L (97-110); CREATININE 0.9 mg/dL (0.6-1.0); GLOMERULAR FILTRATION RATE > 60; GLUCOSE 125 mg/dL (70-100); POTASSIUM 4.6 mEq/L (3.5-5.2); SODIUM 130 mEq/L (134-144)
[2016-10-27] MEDS: MAGNESIUM OXIDE 400 MG TAB PO SCH (10:53)
[2016-10-27] MEDS: LEVOTHYROXINE 200 MCG TAB PO SCH (10:53)
[2016-10-27] MEDS: DULoxetine 60 MG CAP PO SCH (10:54)
[2016-10-27 11:34] LABS: PHENCYCLIDINE URINE BCH < 6 ng/ml (NEGATIVE); PHENCYCLIDINE URINE BCH NEGATIVE (NEGATIVE); TETRAHYDROCANNABINOL URINE < 5 ng/mL (NEGATIVE); TETRAHYDROCANNABINOL URINE NEGATIVE (NEGATIVE)
[2016-10-27] MEDS: LORazepam 0.5 MG TAB PO PRN ×2 (12:43→20:46)
[2016-10-27] MEDS: FERROUS SULFATE 325 MG TAB PO SCH (12:44)
--- NOTE | 2016-10-27 16:29 | HOSPPROG ---
Hospitalist Progress Note Assessment/Plan: DIAGNOSES: -Hypotension and Sinus tachycardia -Nausea vomiting -Chest discomfort resolved, mi ruled out -hyponatremia of uncertain cause -History of Juan's thyroiditis status post thyroidectomy on replacement therapy ; family history with several other members with thyroid disease of uncertain nature but on replacement therapy -Diagnosed with Prinzmetal's angina after she presented with chest pain and had no atherosclerotic changes on angiography -positivity for narcotics and cocaine on urine drug screen from outpatient laboratory data done here in June and through our ER in July She still remains hypotensive and I will continue IV fluid resuscitation at this time. There is no sign of sepsis, heart disease, or PE. At this point the patient's presenting symptoms could have a number of etiologies. As she does have autoimmune thyroiditis history I would be concerned about the possibility of adrenal insufficiency and will do a Cortrosyn stim test tomorrow morning. However I am also concerned about the possibility of drug use. Notice looking back that there is an outpatient physician who ordered to urine drug screens on July 07 knees are both positive for cocaine, and she had another drug screen positive for cocaine here in the ER on August 10. I am especially concerned that her supposed Prinzmetal' s angina may be actually due to cocaine use. At this time I have ordered a urine drug screen and comes back again showing cocaine however also showing positive for opioids and amphetamines. The amphetamine change could potentially be related to her antidepressant use. However the cocaine and opioid cannot be explained by any medication she is taking or anything else that can come up with other than surreptitious use of these at home. I did ask the patient today if she uses any street drugs and she denies these today. I will confront her again with the same question tomorrow and review her laboratory data with her at that time. 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: initially sinus tachycardia has now turned to normal sinus rhythm Exam: alert oriented skin warm dry color ok resps not labored lungs clear BSs heart regular abd soft nondistended nontender, bowel sounds present limbs warm, no edema iv site ok Objective: Vital Signs Temp Pulse Resp BP Pulse Ox 36.4 C 94 16 99/64 L 96 10/27/16 15:33 10/27/16 15:33 10/27/16 15:33 10/27/16 15:33 10/27/16 15:33 Laboratory Results 10/27/16 04:27 10/27/16 04:27 10/26/16 10/27/16 10/28/16 06:59 06:59 06:59 Intake Total 3375 160 Output Total 2400 300 Balance 975 -140 - Time Spent With Patient Time Spent with Patient: greater than 35 minutes Time Spent with Patient: Greater than 35 minutes spent on this patients care, greater than 50% of time spent counseling, educating, and coordinating care regarding the above mentioned plan. ICD10 Worksheet Patient Problems: Problems Problem Status Onset Chest pain Acute Migraine headache Acute Abdominal pain Acute Acute appendicitis Acute Acute coronary syndrome Acute Anxiety Acute Chest pain Acute Nausea & vomiting Acute Palpitations Acute
[2016-10-27 19:05] LABS: POTASSIUM 3.9 mEq/L (3.5-5.2)
[2016-10-27] MEDS ORDERED: NS 1,000 ML IV SCH (19:30)
[2016-10-27] MEDS ORDERED: LOPERAMIDE HCL 2 MG CAP PO ONE (20:43)
--- NOTE | 2016-10-27 20:45 | HOSPPROG ---
Hospitalist Progress Note Assessment/Plan: x-cover note rn notified me of diarrhea. Pt requests Imodium p/ Imodium 4mg po x 1 consider further testing as indicated Objective: Vital Signs Temp Pulse Resp BP Pulse Ox 36.8 C 83 16 108/76 98 10/27/16 20:00 10/27/16 20:00 10/27/16 20:00 10/27/16 20:00 10/27/16 20:00 Laboratory Results 10/27/16 04:27 10/27/16 18:32 10/26/16 10/27/16 10/28/16 05:59 05:59 05:59 Intake Total 5425 1660 Output Total 1900 800 Balance 675 860 ICD10 Worksheet Patient Problems: Problems Problem Status Onset Anxiety Acute Chest pain Acute Acute coronary syndrome Acute Palpitations Acute Acute appendicitis Acute Nausea & vomiting Acute Abdominal pain Acute Chest pain Acute Migraine headache Acute
[2016-10-27] MEDS: IBUPROFEN 600 MG TAB PO PRN (20:46)
[2016-10-27] MEDS ORDERED: POTASSIUM CL 10 MEQ TAB PO ONE (20:49)
[2016-10-27] MEDS: PROMETHAZINE HCL 25 MG/ML INJ IVP PRN (21:16)
[2016-10-28 05:20] LABS: ALANINE AMINOTRANSFERASE 29 IU/L (9-52); ALBUMIN 3.1 g/dL (3.5-5.0); ALKALINE PHOSPHATASE 49 IU/L (38-126); ANION GAP 8 mEq/L (8-16); ASPARTATE AMINOTRANSFERASE 24 IU/L (14-46); BILIRUBIN,TOTAL 0.5 mg/dL (0.1-1.4); BILIRUBIN-CONJUGATED 0.3 mg/dL (0.0-0.5); BILIRUBIN-UNCONJUGATED 0.2 mg/dL (0.0-1.1); CALCIUM 8.3 mg/dL (8.5-10.4); CARBON DIOXIDE 26 mEq/l (22-31); CHLORIDE 105 mEq/L (97-110); CREATININE 0.7 mg/dL (0.6-1.0); GLOMERULAR FILTRATION RATE > 60; GLUCOSE 100 mg/dL (70-100); POTASSIUM 4.4 mEq/L (3.5-5.2); SODIUM 139 mEq/L (134-144); TOTAL PROTEIN 5.4 g/dL (6.3-8.2)
[2016-10-28] MEDS ORDERED: COSYNTROPIN 0.25 MG/2 ML SYRINGE IVP ONE (06:00)
[2016-10-28 07:55] VITALS: PULSE 80; RESP 15; TEMP 97.7; O2SAT 96
[2016-10-28 08:59] VITALS: BP 93/59
--- NOTE | 2016-10-28 09:02 | PDDCSUM ---
Discharge Summary Discharge Summary: DISCHARGE DIAGNOSES: -HYPOTENSION, UNCERTAIN ETIOLOGY, WITH HX OF CHRONIC HYPERTENSION -CHEST PAIN RESOLVED, NONCARDIAC -NAUSEA, RESOLVED -REPEATEDLY POSITIVE URINE COCAINE SCREENING TEST, AND POSITIVE TEST FOR OPIATES ; PT IS ADAMANT THAT SHE DOES NOT USE ANY DRUG HOSPITAL COURSE SUMMARY: This patient has come back to the hospital with complaints of chest discomfort nausea variety of other symptoms at this time. It is notable that she has had the same symptoms here repeatedly and in fact has had more than 36 emergency room visits in the last 5 years, a number of which have involved same or similar symptoms. In the past she has had a variety of evaluations including coronary angiography which showed no stenotic lesions and she has been diagnosed as having Prinzmetal's angina. Her symptoms here have included chest discomfort, headache, nausea vomiting, diarrhea, fatigue, and anxiety all in fairly nonspecific pattern. Her Vital Signs have included initial sinus tachycardia which resolved with hydration, and low blood pressures which have persisted despite significant hydration and despite us stopping her lisinopril and chlorthalidone. Otherwise her evaluation here so far has really been fairly unrevealing overall. There is no sign of infection, acute cardiac or pulmonary abnormality, renal or other organ failure, or other metabolic causes. She does have a history of autoimmune thyroid disease and I did test her for adrenal insufficiency which is not present. Her TSH is just slightly high on current replacement therapy but this is not going to explain her current presentation. In reviewing her chart and noticed that she had in the past some abnormal urine drug screening tests positive for both opiates and cocaine. She does not list any prescribed opiates as part of her medication list. Because of her history of chest pain episodes and her present tachycardia and changes in blood pressure I did ask her on 2 occasions about any use of drugs and specifically asked her about cocaine and narcotics. The patient adamantly denies any use of any of these substances. At the moment I cannot explain any of her symptoms or why she is suddenly with much lower blood pressures than are normal for her. I can' t find a cause for the blood pressure and the blood pressure is being well tolerated on all respects so I do not think she needs any further assessment or treatment for that at this time. However I will continue to have her hold her lisinopril and chlorthalidone and I have asked her to follow up with her primary care physician within the next 5-6 days to review her blood pressures interview her symptoms. PENDING TEST RESULTS: None MEDICATION CHANGES: Stop chlorthalidone and lisinopril, follow up with primary care next week regarding blood pressures FOLLOW-UP PLAN: With primary care next week Greater than 35 minutes bedside and care coordination time today
[2016-10-28] MEDS: LEVOTHYROXINE 200 MCG TAB PO SCH (09:51)
[2016-10-28] MEDS: MAGNESIUM OXIDE 400 MG TAB PO SCH (09:51)
[2016-10-28] MEDS: FERROUS SULFATE 325 MG TAB PO SCH (09:52)
[2016-10-28] MEDS: DULoxetine 60 MG CAP PO SCH (09:52)
== END 2016-10-28 11:45 | disposition home or self-care (01) | DRG 313 ==
LOC: EDUNIT# → INTOOBSV 15:03 → F2W 16:28 → OBSVTOIN 10-27 21:36
PROVIDERS: ADMIT Hospitalist; ATTEND Internal Medicine
DX: R07.89 Other chest pain (principal); E87.1 Hypo-osmolality and hyponatremia; G43.009 Migraine without aura, not intractable, without status migrainosus; I95.9 Hypotension, unspecified; R82.5 Elevated urine levels of drugs, medicaments and biological substances; R00.0 Tachycardia, unspecified; R19.7 Diarrhea, unspecified; F41.9 Anxiety disorder, unspecified; I20.1 Angina pectoris with documented spasm; E06.3 Autoimmune thyroiditis; Z87.442 Personal history of urinary calculi
CPT/HCPCS: 80307; 84481-90; 96374; G0378; G0480; J0834; J2060; J2405; J2550

== ENCOUNTER 2017-02-09 15:20 | Emergency (ER) | payer MEDICAID ==
[2017-02-09 15:25] VITALS: RESP 16; TEMP 98.4
--- NOTE | 2017-02-09 16:22 | EDPHY ---
H & P Time Seen by Provider: 02/09/17 16:04 HPI/ROS: CHIEF COMPLAINT: Bilateral flank pain, urinary frequency HISTORY OF PRESENT ILLNESS: 46-year-old female presents to the emergency department by private vehicle complaining of bilateral flank pain and urinary frequency. Symptoms began earlier this afternoon. The patient has a history of frequent urinary tract infections and frequent kidney infections. She was last treated for 1 approximately 1 year ago. She does feel nauseous although no vomiting. She started feeling chilled this evening and presented to the emergency department for evaluation. No diarrhea. Mild diffuse lower abdominal discomfort. She does have some frequency with urination as well as some mild dysuria. Last menstrual period was 1 week ago and she denies . REVIEW OF SYSTEMS: Constitutional: No fever, no chills. Eyes: No double or blurry vision. ENT: No sore throat. Respiratory: No cough, no shortness of breath. Cardiac: No chest pain. Gastrointestinal: Mild lower abdominal discomfort. No vomiting or diarrhea. Nausea. Genitourinary: No dysuria. Musculoskeletal: Bilateral flank pain. No neck pain. Skin: No rashes. Neurological: No headache. Past Medical/Surgical History: Juan's, hypothyroidism, depression, ovarian cysts, degenerative disc disease, kidney stones, SVT, anxiety, arthritis, migraine headaches, prinzmetal angina, thyroidectomy, , uterine septate removal, appendectomy July 2016 Social History: and lives in [place] Smoking Status: Never smoked Physical Exam: General Appearance: Alert, no distress. Afebrile. Nontoxic appearing. Blood pressure 157/104 Eyes: Pupils equal and round. Extraocular motions are all intact. ENT: Mouth: Mucous membranes moist. Respiratory: No wheezing, rhonchi, or rales, lungs are clear to auscultation. Cardiovascular: Regular rate and rhythm. Gastrointestinal: Abdomen is soft. She has mild diffuse pain with palpation in the abdomen especially in the right lower quadrant, left lower quadrant and suprapubic area. There is no masses, rebound or guarding noted. Bilateral CVA tenderness noted. Neurological: Alert and oriented x 3, cranial nerves II through XII grossly intact Skin: Warm and dry, no rashes. Musculoskeletal: Nontender to palpate along the cervical, thoracic or lumbar spine. Neck is supple. Extremities: Full range of motion and no peripheral edema. Psychiatric: Patient is oriented X 3, there is no agitation. Constitutional: Initial Vital Signs Temperature (C) 36.9 C 02/09/17 15:23 Heart Rate 99 02/09/17 15:23 Respiratory Rate 16 02/09/17 15:23 Blood Pressure 157/104 H 02/09/17 15:23 O2 Sat (%) 99 02/09/17 15:23 O2 Delivery Mode Room Air Allergies/Adverse Reactions: nifedipine Allergy (Severe, Verified 09/30/16 13:00) Other-Enter Comments ketorolac tromethamine [From Toradol] Allergy (Intermediate, Verified 09/30/16 13:00) EXERBATION OF ANXIETY amoxicillin trihydrate [From Augmentin] Allergy (Mild, Verified 09/30/16 13:00) TINNITIS metoclopramide HCl [From Reglan] Allergy (Verified 09/30/16 13:00) Anxiety potassium clavulanate [From Augmentin] Allergy (Verified 09/30/16 13:00) Home Medications: Medication Instructions Recorded DULoxetine [Cymbalta 60 MG (*)] 60 mg PO DAILY 07/30/16 Ferrous Sulfate [Ferrous Sulf 325 325 mg PO DAILY 07/30/16 MG (*)] LORazepam [Ativan (*)] 1 mg PO DAILY PRN 07/30/16 Levothyroxine [Synthroid 200 mcg 200 mcg PO DAILY 07/30/16 (*)] Magnesium Oxide [Magnesium Oxide 400 mg PO DAILY 07/30/16 400 mg (*)] Cephalexin [Keflex] 500 mg PO QID #28 cap 02/09/17 Cyclobenzaprine [Flexeril] 10 mg PO TIDPRN PRN #12 tab 02/09/17 Lisinopril 02/09/17 Phenazopyridine HCl [Pyridium] 200 mg PO Q8PRN PRN #6 tab 02/09/17 Medical Decision Making ED Course/Re-evaluation: 46-year-old female presents to the emergency department with urinary frequency, dysuria and bilateral flank pain. She has a history of frequent kidney infections. The patient provide a urine specimen and this is pending. I did encourage her to have close follow-up with her primary care provider regarding her elevated blood pressure. She is prescribed lisinopril. Urinalysis reveals only trace bacteria. The patient's specific gravity however is 1.002. The patient is very well hydrated. I did explain to the patient that it is possible that this could have diluted her urine to the point where it is difficult to detect infection. Urine culture has been added. I offered treatment for the patient with Keflex and Pyridium or she may wait for the rate results of the culture. The patient requests the antibiotic. She was also seen in the emergency department 2 years ago with very similar symptoms and had a negative urine. She did however improved after Keflex. She has tolerated this medication well. She however return to the emergency department multiple times after her initial visit and was ultimately determined to be musculoskeletal back pain. She was treated with cyclobenzaprine. She was given prescription for cyclobenzaprine to use as needed. She has was instructed to return if she developed fever, vomiting, worsening pain or any other concerns. This was discussed with the patient the patient verbalized understanding and agreed. Differential Diagnosis: Including but not limited to urinary tract infection, pyelonephritis, kidney stone, muscular strain - Data Points Laboratory Results: 02/09/17 02/09/17 15:24 15:24 Urine Color PALE YELLOW Urine Appearance CLEAR Urine pH 6.0 (5.0-7.5) Ur Specific [place] 1.002 (1.002-1.030) Urine Protein NEGATIVE (NEGATIVE) Urine Ketones NEGATIVE (NEGATIVE) Urine Blood NEGATIVE (NEGATIVE) Urine Nitrate NEGATIVE (NEGATIVE) Urine Bilirubin NEGATIVE (NEGATIVE) Urine Urobilinogen NEGATIVE EU EU (0.2-1.0) Ur Leukocyte Esterase NEGATIVE (NEGATIVE) Urine RBC NONE SEEN /hpf /hpf (0-3) Urine WBC 1-3 /hpf /hpf (0-3) Ur Epithelial Cells TRACE /lpf /lpf (NONE-1+) Urine Bacteria TRACE /hpf H /hpf (NONE SEEN) Urine Glucose NEGATIVE (NEGATIVE) Urine Test NEGATIVE Medications Given: Discontinued Medications Ibuprofen (Motrin) 600 mg PO EDNOW ONE Stop: 02/09/17 17:18 Last Admin: 02/09/17 16:25 Dose: 600 mg Ondansetron HCl (Zofran Odt) 4 mg PO EDNOW ONE Stop: 02/09/17 17:18 Last Admin: 02/09/17 16:25 Dose: 4 mg Departure - Departure Disposition: Home, Routine, Self-Care Clinical Impression: Bilateral flank pain Condition: Good Instructions: Flank Pain (ED) Additional Instructions: Your blood pressure was 157/104 in the emergency department today. Please follow up with her primary care provider to recheck this. Return to the emergency department if he developed fever, vomiting, worsening back pain, or if you feel worse in any way. Keflex as directed for 7 days. Pyridium as needed for pain with urination. Cyclobenzaprine as needed for muscular spasm, caution this medication will make you very drowsy. Referrals: Juliana Mayes MD [Primary Care Provider] - 1-2 days without fail Prescriptions: Cephalexin [Keflex] 500 mg PO QID #28 cap Cyclobenzaprine [Flexeril] 10 mg PO TIDPRN PRN #12 tab PRN Reason: P.r.n. muscular spasm Phenazopyridine HCl [Pyridium] 200 mg PO Q8PRN PRN #6 tab PRN Reason: prn dysuria
[2017-02-09 16:30] LABS: COLOR PALE YELLOW; LEUKOCYTE ESTERASE,URINE NEGATIVE (NEGATIVE); NITRITE,URINE NEGATIVE (NEGATIVE)
[2017-02-09] MEDS ORDERED: ONDANSETRON DISINTEGRATING 4 MG TAB ONE (16:38)
[2017-02-09] MEDS ORDERED: IBUPROFEN 600 MG TAB PO ONE ×2 (16:39→17:17)
[2017-02-09 17:15] LABS: BACTERIA TRACE /hpf (NONE SEEN)
[2017-02-09] MEDS ORDERED: ONDANSETRON DISINTEGRATING 4 MG TAB PO ONE (17:17)
[2017-02-09 17:19] LABS: RBC,URINE NONE SEEN /hpf (0-3)
[2017-02-09 17:58] VITALS: BP 140/95; PULSE 75; O2SAT 98
== END 2017-02-09 17:58 | disposition home or self-care (01) ==
DX: R10.31 Right lower quadrant pain (principal); R10.32 Left lower quadrant pain

== ENCOUNTER 2017-06-02 14:35 | Emergency (ER) | payer MEDICAID ==
--- NOTE | 2017-06-02 14:50 | CPEKG ---
Heart Rate: 114 RR Interval: 526 P-R Interval: 128 QRSD Interval: 78 QT Interval: 340 QTC Interval: 469 P Olive: 39 QRS Olive: -7 T Wave Olive: 49 EKG Severity - BORDERLINE ECG - EKG Impression: SINUS TACHYCARDIA EKG Impression: LVH BY VOLTAGE Electronically Signed By: Britney Joyner 02-Jun-2017 14:52:33
[2017-06-02] MEDS ORDERED: NS 1,000 ML IV ONE (15:03)
--- NOTE | 2017-06-02 15:03 | EDPHY ---
HPI/HX/ROS/PE/MDM Narrative: CHIEF COMPLAINT: Dizzy, rapid heart rate HPI: The patient is a 46 y/o female with a history of SVT, chronic chest pain and Juan's arriving via EMS complaining of dizziness and a rapid heart rate. For the past 4 days she has had a cough, felt short of breath, and has felt heart palpitations. Today she went to an urgent care who noticed that the patient was tachycardic. They preformed an EKG, but no chest x-ray. Due to her elevated heart rate, they sent the patient to the ER. She denies any new or significant chest pain. She has been changing the dosage of her thyroid medication for the past 6 weeks. Most recent TSH levels were tested last week but she has not heard from her doctor.. No headache, sore throat, abdominal pain , urinary or bowel complaints, fever. REVIEW OF SYSTEMS: Aside from elements discussed in the HPI, a comprehensive 10-point review of systems was reviewed and is negative. PMH: Ujan's, SVT, depression, thyroidectomy, appendectomy, hysterectomy SOCIAL HISTORY: Support dog at bedside, lives in [place], , not employed PHYSICAL EXAM: General: Patient is alert, in no acute distress. ENT: Eyes are normal to inspection. ENT inspection normal. Neck: Normal inspection. Full range of motion. Respiratory: No respiratory distress. Breath sounds normal bilaterally. Cardiovascular: Mild tachycardia, regular rhythm. Strong peripheral pulses. Normal cap refill. Abdomen: The abdomen is nontender to palpation. There are no peritoneal signs. There are normal bowel sounds. Back: Normal to inspection. No tenderness to palpation. Skin: Normal color. No rash. Warm and dry. Extremities: Normal appearance. Full range of motion. Neuro: Oriented x3. Normal motor function. Normal sensory function. ED Course: 1440: EKG was ordered and interpreted by myself. Please see [employer] system for official reading. 1655: Reassessed patient and discussed imaging and laboratory findings. 40mg PO Propranolol administered. Return precautions provided; patient is comfortable with this plan. MDM: This patient presents with cough and palpitations, and is found to have an elevated resting HR. D-dimer is negative, making PE unlikely, and CXR is negative for signs of PTX or PNA. The patient's TSH is quite low, and in the context of recent thyroid medication adjustments, I think this is the most likely culprit. I have administered 40mg of oral propranolol with good results. I had an extensive discussion with the patient regarding our findings and she agrees with plan for follow-up with her PCP tomorrow to address thyroid function. I will write for a short course of propranolol to help with symptoms. The patient has no chest pain or ECG findings to suggest ACS or cardiac ischemia. - Data Points Imaging Results: Imaging Impressions Chest X-Ray 06/02/17 15:36 Impression: 1. No active cardiopulmonary disease seen. Imaging: I viewed and interpreted images myself Laboratory Results: Laboratory Results 06/02/17 14:30 06/02/17 14:32 06/02/17 06/02/17 06/02/17 17:22 16:51 14:32 WBC RBC Hgb Hct MCV MCH MCHC RDW Plt Count MPV Neut % (Auto) Lymph % (Auto) [place] % (Auto) Eos % (Auto) Baso % (Auto) Nucleat RBC Rel Count Absolute Neuts (auto) Absolute Lymphs (auto) Absolute Monos (auto) Absolute Eos (auto) Absolute Basos (auto) Absolute Nucleated RBC Immature Gran % Immature Gran # D-Dimer Pending Sodium 132 mEq/L L mEq/L (135-145) Potassium 4.1 mEq/L mEq/L (3.5-5.2) Chloride 92 mEq/L L mEq/L (97-110) Carbon Dioxide 26 mEq/l mEq/l (22-31) Anion Gap 14 mEq/L mEq/L (8-16) BUN 13 mg/dL mg/dL (7-23) Creatinine 0.7 mg/dL mg/dL (0.6-1.0) Estimated GFR > 60 Glucose 100 mg/dL mg/dL (70-100) Calcium 9.6 mg/dL mg/dL (8.5-10.4) TSH 0.063 uIU/mL L uIU/mL (0.465-4.680) Urine Opiates Screen Pending Urine Barbiturates Pending Ur Phencyclidine Scrn Pending Ur Amphetamines Screen Pending U Benzodiazepines Scrn Pending Urine Cocaine Screen Pending U Marijuana (THC) Screen Pending 06/02/17 14:30 WBC 10.54 10^3/uL H 10^3/uL (3.80-9.50) RBC 4.23 10^6/uL 10^6/uL (4.18-5.33) Hgb 14.1 g/dL g/dL (12.6-16.3) Hct 38.1 % % (38.0-47.0) MCV 90.1 fL fL (81.5-99.8) MCH 33.3 pg pg (27.9-34.1) MCHC 37.0 g/dL H g/dL (32.4-36.7) RDW 12.5 % % (11.5-15.2) Plt Count 462 10^3/uL H 10^3/uL (150-400) MPV 8.5 fL L fL (8.7-11.7) Neut % (Auto) 67.6 % % (39.3-74.2) Lymph % (Auto) 24.2 % % (15.0-45.0) [place] % (Auto) 7.1 % % (4.5-13.0) Eos % (Auto) 0.4 % L % (0.6-7.6) Baso % (Auto) 0.3 % % (0.3-1.7) Nucleat RBC Rel Count 0.0 % % (0.0-0.2) Absolute Neuts (auto) 7.13 10^3/uL H 10^3/uL (1.70-6.50) Absolute Lymphs (auto) 2.55 10^3/uL 10^3/uL (1.00-3.00) Absolute Monos (auto) 0.75 10^3/uL 10^3/uL (0.30-0.80) Absolute Eos (auto) 0.04 10^3/uL 10^3/uL (0.03-0.40) Absolute Basos (auto) 0.03 10^3/uL 10^3/uL (0.02-0.10) Absolute Nucleated RBC 0.00 10^3/uL 10^3/uL (0-0.01) Immature Gran % 0.4 % % (0.0-1.1) Immature Gran # 0.04 10^3/uL 10^3/uL (0.00-0.10) D-Dimer Sodium Potassium Chloride Carbon Dioxide Anion Gap BUN Creatinine Estimated GFR Glucose Calcium TSH Urine Opiates Screen Urine Barbiturates Ur Phencyclidine Scrn Ur Amphetamines Screen U Benzodiazepines Scrn Urine Cocaine Screen U Marijuana (THC) Screen Medications Given: Discontinued Medications Sodium Chloride (Ns) 1,000 mls @ 0 mls/hr IV EDNOW ONE; Wide Open PRN Reason: Protocol Stop: 06/02/17 15:04 Last Admin: 06/02/17 15:12 Dose: 1,000 mls General Time Seen by Provider: 06/02/17 15:00 Initial Vital Signs: Initial Vital Signs Temperature (C) 37.2 C 06/02/17 14:35 Heart Rate 119 H 06/02/17 14:35 Respiratory Rate 20 06/02/17 14:35 Blood Pressure 139/86 H 06/02/17 14:35 O2 Sat (%) 95 06/02/17 14:35 O2 Delivery Mode Room Air Allergies/Adverse Reactions: nifedipine Allergy (Severe, Verified 09/30/16 13:00) Other-Enter Comments ketorolac tromethamine [From Toradol] Allergy (Intermediate, Verified 09/30/16 13:00) EXERBATION OF ANXIETY amoxicillin trihydrate [From Augmentin] Allergy (Mild, Verified 09/30/16 13:00) TINNITIS metoclopramide HCl [From Reglan] Allergy (Verified 09/30/16 13:00) Anxiety potassium clavulanate [From Augmentin] Allergy (Verified 09/30/16 13:00) Home Medications: Medication Instructions Recorded DULoxetine [Cymbalta 60 MG (*)] 60 mg PO DAILY 07/30/16 Ferrous Sulfate [Ferrous Sulf 325 325 mg PO DAILY 07/30/16 MG (*)] LORazepam [Ativan (*)] 1 mg PO DAILY PRN 07/30/16 Levothyroxine [Synthroid 200 mcg 200 mcg PO DAILY 07/30/16 (*)] Magnesium Oxide [Magnesium Oxide 400 mg PO DAILY 07/30/16 400 mg (*)] Cephalexin [Keflex] 500 mg PO QID #28 cap 02/09/17 Cyclobenzaprine [Flexeril] 10 mg PO TIDPRN PRN #12 tab 02/09/17 Lisinopril 02/09/17 Phenazopyridine HCl [Pyridium] 200 mg PO Q8PRN PRN #6 tab 02/09/17 Propranolol HCl [Inderal 40mg (*)] 40 mg PO TID #20 tab 06/02/17 Departure - Departure Disposition: Home, Routine, Self-Care Clinical Impression: Hypothyroid Condition: Good Instructions: How to Take a Blood Pressure (ED), Hypothyroidism (ED) Additional Instructions: Follow-up with your primary doctor within 72 hours. Return to the Emergency Department for fever, chest pain, shortness of breath, increasing pain or other worsening of condition. Referrals: Vielka Lopez MD [Medical Doctor] - As per Instructions Prescriptions: Propranolol HCl [Inderal 40mg (*)] 40 mg PO TID #20 tab Report Scribed for: Fidel An Report Scribed by: Mague Vilchis Date of Report: 06/02/17 Time of Report: 15:03 Physician Review and Approval Statement: Portions of this note were transcribed by an ED scribe. I personally performed the history, physical exam, and medical decision making; and confirm the accuracy of the information in the transcribed note.
[2017-06-02 15:09] LABS: PLATELET COUNT 462 10^3/uL (150-400)
[2017-06-02] MEDS ORDERED: PROPRANOLOL HCL 40 MG TAB PO ONE (16:55)
[2017-06-02 18:11] VITALS: BP 128/85; PULSE 91; RESP 18; TEMP 98.4; O2SAT 97
== END 2017-06-02 18:12 | disposition home or self-care (01) ==
LOC: EDUNIT#
DX: E03.9 Hypothyroidism, unspecified (principal); E86.9 Volume depletion, unspecified
CPT/HCPCS: 80307; G0480

== ENCOUNTER 2017-06-30 15:42 | Observation (INO) | payer MEDICAID ==
[2017-06-30] MEDS ORDERED: ACETAMINOPHEN 500 MG TAB PO ONE (16:35)
--- NOTE | 2017-06-30 16:54 | EDPHY ---
H & P Stated Complaint: fainted ast evening at 11pm/diego today/nausea hurt r side of body with fall Source: Patient Exam Limitations: No limitations - Personal History LMP (Females 10-55): 1-7 Days Ago Current Tetanus/Diphtheria Vaccine: Yes Tetanus Vaccine Date: 2011 - Medical/Surgical History Hx Asthma: No Hx Chronic Respiratory Disease: No Hx Diabetes: No Hx Cardiac Disease: Yes Hx Renal Disease: No Hx Cirrhosis: No Hx Alcoholism: No Hx HIV/AIDS: No Hx Splenectomy or Spleen Trauma: No Other PMH: PMH- HASHIMOTOS, hypothyroid, depression, ovarian cysts, MTHFR, DDD, KIDNEY STONES, SVT, anxiety, arthritis, MIGRAINE, prinzmetal angina. PSH- THYROIDECTOMY, , UTERINE SEPTATE REMOVAL/appy, thyroidectomy - Social History Smoking Status: Never smoked <Valery Villanueva - Last Filed: 06/30/17 18:58> <Bailey Monae - Last Filed: 07/04/17 22:39> Time Seen by Provider: 06/30/17 16:53 HPI/ROS: HPI: This is a 46-year-old female who presents with Chief Complaint: fainted last evening at 11pm/diego today/nausea hurt r side of body with fall Location:head Quality: Syncope Duration: Yesterday evening around 11:00 p.m. Signs and Symptoms: No chest pain, no palpitation, no shortness of breath, no lower extremity edema, no abdominal pain, no nausea, no vomiting, + headache, no dizziness, no ear pain, no tinnitus Timing: Acute Severity: Moderate Context: Patient has a history of SVT, hypothyroidism presents with complaints of syncope and collapse occurring yesterday evening around 11:00 p.m. Patient took a Valium before bed which is normal for her. She remembers waking up with urged to use the bathroom. The next thing she remembers is her is standing over her and she is lying flat on her back next to the bed. Her reports that he heard a thud and her fall. Patient reports that she has some mild muscle discomfort on the right lower ribs and the right hip but denies any weakness/paresthesias/difficulty breathing/decreased range of motion. Patient reports that she looked in the mirror and does not see any bruising. She is currently taking sit fibroid 175 mcg in her last TSH level was stable. She reports that she ate and drank normally yesterday. Denies any fever/nausea/vomiting. She complains of a moderate occipital, nonradiating headache that was not relieved by ibuprofen. LMP 1-7 days ago. Denies any urinary symptoms/back pain. Modifying Factors: See above Comment: ROS: see HPI Constitutional: No fever, no chills, no weight loss Eyes: No blurred vision Respiratory: No shortness of breath, no cough Cardiovascular: No chest pain Gastrointestinal: No nausea, no vomiting, no diarrhea Genitourinary: No dysuria Extremities: No myalgias Neurologic: No weakness, no numbness Skin: No rashes Hematologic: No bruising, no bleeding MEDICAL/SURGICAL/SOCIAL HISTORY: PMH- HOA, hypothyroid, depression, ovarian cysts, MTHFR, DDD, KIDNEY STONES, SVT, anxiety, arthritis, MIGRAINE, Prinzmetal angina PSH- THYROIDECTOMY, , UTERINE SEPTATE REMOVAL/appy, thyroidectomy Social history: . CONSTITUTIONAL: Extremely well-appearing polite and cooperative adult female, service dog us lying on lap, awake and alert, no obvious distress HEENT: Atraumatic and normocephalic, PERRL, EOMI. Tympanic membranes clear. Oropharynx clear, no exudate and moist pink mucosa. Airway patent. No lymphadenopathy. No meningismus. Cardiovascular: Normal S1/S2, regular rate, regular rhythm, without murmur rub or gallop. PULMONARY/CHEST: Symmetrical and nontender. Clear to auscultation bilaterally. Good air movement. No accessory muscle usage. ABDOMEN: Soft, nondistended, nontender, no rebound, no guarding, no peritoneal signs, no masses or organomegaly. No CVAT. EXTREMITIES: 2/2 pulses, strength 5/5, no deformities, no clubbing, no cyanosis or edema. NEUROLOGICAL: no focal neuro deficits. GCS 15. Normal [id number]. Normal [id number]. Cranial nerves 2-12 grossly intact. Speech clear. SKIN: Warm and dry, no erythema. no rash. Good capillary refill. (Valery Villanueva) Constitutional: Initial Vital Signs Temperature (C) 36.8 C 06/30/17 15:57 Heart Rate 112 H 06/30/17 15:57 Respiratory Rate 20 06/30/17 15:57 Blood Pressure 132/99 H 06/30/17 15:57 O2 Sat (%) 98 06/30/17 15:57 O2 Delivery Mode Room Air Allergies/Adverse Reactions: nifedipine Allergy (Severe, Verified 06/30/17 15:54) Other-Enter Comments ketorolac tromethamine [From Toradol] Allergy (Intermediate, Verified 06/30/17 15:54) EXERBATION OF ANXIETY amoxicillin trihydrate [From Augmentin] Allergy (Mild, Verified 06/30/17 15:54) TINNITIS metoclopramide HCl [From Reglan] Allergy (Verified 06/30/17 15:54) Anxiety omeprazole Allergy (Verified 06/30/17 17:42) potassium clavulanate [From Augmentin] Allergy (Verified 06/30/17 15:54) Home Medications: Medication Instructions Recorded DULoxetine [Cymbalta 60 MG (*)] 60 mg PO DAILY 07/30/16 DULoxetine [Cymbalta] 20 mg PO DAILY 06/30/17 Diazepam [Valium 2 MG (*)] 2 mg PO TID PRN 06/30/17 Herbals/Supplements -Info Only 1 ea PO DAILY 06/30/17 Levothyroxine [Synthroid 175 mcg 175 mcg PO DAILY06 06/30/17 (*)] Lidocaine [Lidoderm] 1 each TP DAILY PRN #10 adh..patch 07/01/17 Lisinopril [Zestril 40 mg (*)] 20 mg PO DAILY #30 tab 07/01/17 Methocarbamol [Robaxin 500 mg (*)] 500 mg PO TID PRN #20 tab 07/01/17 Medical Decision Making <Valery Villanueva - Last Filed: 06/30/17 18:58> - Diagnostics Imaging: Discussed imaging studies w/ surgical specialist Radiologist <Bailey Monae - Last Filed: 07/04/17 22:39> - Diagnostics EKG Interpretation: 12 lead EKG: Indication: Syncope Rhythm: Normal sinus rhythm, rate 94 beats per minute [place]: Left Intervals: Normal QRS: Normal ST segments: Normal INTERPRETATION: Normal EKG The 12 lead EKG was interpreted by myself and with attending. Compared to EKG on 06/02/2017; sinus tachycardia improved. (Valery Villanueva) ED Course/Re-evaluation: EKG, labs, urinalysis, orthostatics, head CT scan ordered EKG upon arrival shows sinus rhythm, rate 94 beats per minute Patient will likely require admission due to syncope and collapse for observation and further evaluation. Given 1 L normal saline and a 1000 mg of Tylenol for headache 1745: Called by radiologist who advised that head CT scan shows no acute intracranial process 183: Labs reviewed; grossly unremarkable; TSH still pending upon consult ED decision to consult hospitalist for admission for syncope and collapse. Needs overnight monitoring and continued workup. Repeat vitals blood pressure 127/86, heart rate 97, O2 sats 99% on room air. 1858: Spoke with hospitalist, Dr. Godinez, who kindly agrees to accept patient for admission and provide further care. PCU/observation. This patient was seen under the supervision of my secondary supervising physician. I evaluated care for this patient independently. Discussed this patient with Dr. Monae who did not see the patient. (Valery Villanueva) Differential Diagnosis: Syncope including but not limited to vasovagal syncope, arrhythmia, dehydration , and blood loss. (Valery Villanueva) Other Provider: The patient was evaluated and managed by the Physician Chemical Research Worker. I discussed the patient's presentation and course with the physician administrative support assistant and agree with the evaluation. My co-signature indicates that I have reviewed this chart and I agree with the findings and plan of care as documented. I am the secondary supervising physician. (Bailey Monae) - Data Points Laboratory Results: Laboratory Results 06/30/17 17:47 06/30/17 17:47 Medications Given: Discontinued Medications Acetaminophen (Tylenol) 1,000 mg PO EDNOW ONE Stop: 06/30/17 16:36 Last Admin: 06/30/17 16:38 Dose: 1,000 mg Hydrocodone Bitart/Acetaminophen ([place] 5/325) 1 tab PO ONCE ONE Stop: 06/30/17 22:43 Last Admin: 06/30/17 23:00 Dose: 1 tab Diazepam (Valium) 2 mg PO TID PRN PRN Reason: anxiety/sleep Stop: 12/27/17 19:12 Last Admin: 07/01/17 02:17 Dose: 2 mg Duloxetine HCl (Cymbalta) 60 mg PO DAILY KIM Stop: 12/28/17 08:59 Last Admin: 07/01/17 09:17 Dose: 60 mg Duloxetine HCl (Cymbalta) 20 mg PO DAILY KIM Stop: 12/28/17 08:59 Last Admin: 07/01/17 09:17 Dose: 20 mg Sodium Chloride (Ns) 1,000 mls @ 0 mls/hr IV EDNOW ONE; Wide Open PRN Reason: Protocol Stop: 06/30/17 17:01 Last Admin: 06/30/17 17:58 Dose: 1,000 mls Ibuprofen (Motrin) 600 mg PO ONCE ONE Stop: 07/01/17 09:06 Last Admin: 07/01/17 09:16 Dose: 600 mg Levothyroxine Sodium (Synthroid) 175 mcg PO DAILY06 KIM Stop: 12/28/17 05:59 Last Admin: 07/01/17 05:45 Dose: 175 mcg Morphine Sulfate (Morphine) 4 mg IVP EDNOW ONE Stop: 06/30/17 19:59 Last Admin: 06/30/17 20:05 Dose: 4 mg Departure <Valery Villanueva - Last Filed: 06/30/17 18:58> <Bailey Monae - Last Filed: 07/04/17 22:39> - Departure Disposition: [facility] Inpatient Acute Clinical Impression: Syncope and collapse Condition: Good
--- NOTE | 2017-06-30 16:55 | CPEKG ---
Heart Rate: 94 RR Interval: 638 P-R Interval: 132 QRSD Interval: 80 QT Interval: 364 QTC Interval: 456 P [place]: 31 QRS [place]: -12 T Wave [place]: 42 EKG Severity - ABNORMAL ECG - EKG Impression: SINUS RHYTHM EKG Impression: LEFT VENTRICULAR HYPERTROPHY Electronically Signed By: Bailey Monae 30-Jun-2017 22:05:24
[2017-06-30] MEDS ORDERED: NS 1,000 ML IV ONE (17:00)
[2017-06-30 18:01] LABS: PLATELET COUNT 364 10^3/uL (150-400)
[2017-06-30] MEDS ORDERED: ONDANSETRON 4 MG/2 ML VIAL IVP PRN (19:08)
[2017-06-30] MEDS ORDERED: ONDANSETRON DISINTEGRATING 4 MG TAB PO PRN (19:08)
[2017-06-30] MEDS ORDERED: ACETAMINOPHEN 325 MG TAB PO PRN (19:08)
[2017-06-30] MEDS ORDERED: DIAZEPAM 2 MG TAB PO PRN (19:13)
--- NOTE | 2017-06-30 21:25 | GHP ---
[f rep st] HISTORY AND PHYSICAL DATE OF ADMISSION: 06/30/2017 CHIEF COMPLAINT: Syncopal episode yesterday, possible concussion. 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 HISTORY OF PRESENT ILLNESS: A 46-year-old female with history of Prinzmetal's angina, Juan's, migraines, SVT, who presents today after having a syncopal episode last night. Says she remembers sitting up in her bed to go the bathroom and then awoke on the floor on her back. She hit her head. She felt nauseated today. Had diarrhea a few days ago, but none now. Denies any current chest pain, shortness of breath. She rides her bike with minimal shortness of breath intermittently. No lower extremity edema. No visual changes, slurred speech, or focal weakness. She denies any prodromal symptoms prior to the syncopal episode, including chest pain, shortness of breath, clamminess, nausea, or vomiting. Last night had 2 beers with dinner. Denies any illicits. REVIEW OF SYSTEMS: I completed a 10-point review of systems, negative except as noted in HPI. PAST MEDICAL HISTORY: Prinzmetal's angina, Juan's, migraines, anxiety/ depression, SVT, kidney stones, prior cocaine abuse. Echocardiogram 02/2012: LV was normal. EF of 60%. No LVH. Positive diastolic dysfunction. PAST SURGICAL HISTORY: , 3 thyroidectomies, appendectomy, hysterectomy , cardiac catheterization in 2016 with normal coronaries. SOCIAL HISTORY: Drinks a couple beers a week. No tobacco. History of cocaine abuse. Denies illicits at this time. , has an 8-year-old daughter. Lives in [place]. Is a [id number] mom. FAMILY HISTORY: Noncontributory. ALLERGIES: Nifedipine, Toradol, amoxicillin, Reglan, omeprazole, potassium carbonate. HOME MEDICATIONS: Lisinopril 40, levothyroxine 175 mcg daily, herbal supplement , Valium 10 mg t.i.d. p.r.n., Cymbalta 80 daily, chlorthalidone 25 daily. PHYSICAL EXAMINATION: VITAL SIGNS: Temperature 37.4, blood pressure 125/81, heart rate 99, respirations 18, 98% on room air. GENERAL: Lying in bed, no acute distress. HEENT: Pupils dilated, but reactive. Oropharynx clear. No laceration on the head. CV: Regular rate and rhythm. No murmurs, gallops, or rubs. LUNGS: Clear. ABDOMEN: Soft, nontender, nondistended. Positive bowel sounds. : No Presley. MUSCULOSKELETAL: 5/5 upper and lower extremity strength. NEUROLOGIC: 2 through 12 intact. PSYCH: Alert and oriented x3. LABS: WBC 8, hemoglobin 12, hematocrit 34, platelets 364. Sodium 134, potassium 4.2, chloride 100, carbon dioxide 24, creatinine 0.7, glucose 109. LFTs within normal. Mag 1.9. Troponin is less than 0.012. TSH is 2.170. Head CT negative for acute infarct or bleed. EKG is personally reviewed by me, LVH, normal sinus rhythm. ASSESSMENT AND PLAN: 1. Syncope: occurred last night. Differential includes dehydration, pulmonary embolism, arrhythmia, drugs. Denies infectious symptoms. EKG here shows normal sinus rhythm. Cath in 2016 was normal. Troponin and TSH is within normal. Monitor in the PCU on telemetry. Can consider echocardiogram. Does have a history of cocaine abuse in the past; U-tox is pending. 2. Prinzmetal's angina: She says no pain now that her blood pressure is controlled. We will hold lisinopril and diuretic overnight. 3. Juan's. Continue levothyroxine. 4. History of migraines, none now. 5. Anxiety, depression. Resume home medications. 6. History of supraventricular tachycardia. Monitor on telemetry. 7. Postconcussive syndrome: Had nausea. Mild headache today. CT was negative. Counseled on return precautions. 8. Diet: Regular. 9. DVT prophylaxis: Low risk. DISPOSITION: Patient warrants observation admission, given syncopal episode warranting telemetry and further testing. /[id number]/MODL MTDD
[2017-06-30] MEDS ORDERED: HYDROCODONE/APAP 5/325 TAB PO ONE (22:42)
[2017-07-01] MEDS ORDERED: LEVOTHYROXINE 175 MCG TAB PO SCH (06:00)
[2017-07-01 07:34] VITALS: BP 103/61
[2017-07-01] MEDS ORDERED: DULoxetine 60 MG CAP PO SCH (09:00)
[2017-07-01] MEDS ORDERED: Herbals/Supplements -Info Only PO SCH (09:00)
[2017-07-01] MEDS ORDERED: DULoxetine 20 MG CAP PO SCH (09:00)
[2017-07-01] MEDS ORDERED: IBUPROFEN 600 MG TAB PO ONE (09:05)
--- NOTE | 2017-07-01 10:54 | ASMTCMCOM ---
CM Note CM Note Notes: 07/01/2017 Case Management Note Met w/pt. 8 y.o daughter Rey was in room as BVSD is off school today. Pt Jay is at work today and can be reached at [phone]. Pt extended family lives in [place]. There are no anticipated case management d/c needs identified d/t pt age, marital status and activity levels prior to admission. There are no PT or OT evals ordered at this time. Pt ambulates in room without difficulty. Pt air conditioning coil assembler is [place] at the [facility] on [facility] in [place]. Case Management d/c poc: independent with follow up as directed. Case Management available if needs change. Date Signed: 07/01/2017 10:53 AM Electronically Signed By:Cherri Mendez RN
--- NOTE | 2017-07-01 11:58 | ASDISCHSUM ---
Discharge Information Plan Status:Home with No Needs Medically Cleared to Leave:07/01/2017 Discharge Date:07/01/2017 CM D/C Disposition:Home, Routine, Self-Care ADT D/C Disposition:Home, Routine, Self-Care Projected Discharge Date:07/01/2017 Transportation at D/C:Self Discharge Delay Reason: Follow-Up Date:07/01/2017 Discharge Slot: Final Diagnosis: Placement Information Patient Contact Information Contact Name:AMY Relationship: Address:[address] [address] Work Phone: City:[place] Alternate Phone: State/Zip Code:[place] [address] Email: Financial Information Financial Class:Medicaid Primary Plan Desc:MEDICAID HEALTH FIRST TEST LEAD APPLICATION TESTING Primary Plan Number:[id number] Secondary Plan Desc: Secondary Plan Number: Assessment Information LACE LACE Length of stay for Answers: Less than 1 day current admission Acuity / Level of Answers: No Care: Did the patient have an inpatient admission? Comorbidities - select Answers: Other Notes: archana's, ovarian all that apply cysts, MTHFR, DDD, SVT, mi graine, prinmetal's angina, # of Emergency department Answers: 1-2 visits in the last 6 months Social determinants Answers: History of substance abuse (ETOH, street drugs, prescription drugs, etc.) Mental health diagnosis (anxiety, depression, pers onality disorders, etc.) Score: 8 Date Signed: 07/01/2017 11:57 AM Electronically Signed By:Cherri Mendez RN [facility] Progress Note CM Note [facility] Note Notes: 07/01/2017 Case Management Note Met w/pt. 8 y.o daughter Rey was in room as BVSD is off school today. Pt Jay is at work today and can be reached at [phone]. Pt extended family lives in [place]. There are no anticipated case management d/c needs identified d/t pt age, marital status and activity levels prior to admission. There are no PT or OT evals ordered at this time. Pt ambulates in room without difficulty. Pt injection mold technician is Tierra Peña at the [facility] on [facility] in [place]. Case Management d/c poc: independent with follow up as directed. Case Management available if needs change. Date Signed: 07/01/2017 10:53 AM Electronically Signed By:Cherri Mendez RN Intervention Information
--- NOTE | 2017-07-01 18:03 | GDS ---
[f rep st] DISCHARGE SUMMARY DISCHARGE DIAGNOSES: 1. Syncope. 2. Closed head injury. 3. Postconcussive syndrome. HISTORY: For details please see the history and physical dated June 30, 2017. In brief, the patien miranda is a 46-year-old female with a history of Prinzmetal's angina, Juan's, migraine headaches, anx iety, depression, and SVT, who presented to the emergency department approximately 20 hours after a s yncopal event. She apparently regla from her bed when she woke from sleep to use the bathroom. When she got up she reportedly passed out. Her awoke when she hit the floor. She takes regular V alium and endorsed multiple beers at dinner that evening. She denied any prodromal symptoms. She wa s admitted to the hospital for further management. HOSPITAL COURSE: The patient admitted to the progressive care unit. A head CT was negative for any acute intracranial injury. A D-dimer was also negative making PE unlikely. Her electrolytes were no rmal with normal creatinine. She was not orthostatic on arrival. However I note her blood pressures have been slightly low, today is around 90-100 over 60s. I discussed with her the possibility that her syncopal event may be related to alcohol and benzodiazepine use. In addition, I would consider t he possibility of orthostatic event versus a vasovagal episode. I have a low suspicion for cardiac a rrhythmia given this occurred when arising from the supine position in the middle of the night. I re viewed her prior echo as well as angiogram from 2016 and she has had a normal left ventricular ejecti on fraction. I think the echocardiogram would be of low yield as there is more likely explanations f or her syncope. We also discussed postconcussive syndrome and symptoms to watch for and reasons to r eturn. She did ask me repeatedly for prescription for opiates. I declined this is I think she will benefit more from anti-inflammatory heat, ice, muscle relaxers and Lidoderm patch for her neck pain a nd related headache, for what sounds like a whiplash-type injury. The patient is stable for discharge home. Patient is discharged home in stable condition. FOLLOWUP: She is to follow up with her primary care physician, Dr. Suleman Peña. DISCHARGE MEDICATIONS: Please see [facility] for completed outpatient medication list. New medication s on discharge include Robaxin 500 mg p.o. t.i.d. p.r.n., #20, no refills, lidocaine patch, #10, no r efills. Changed medications: I recommend she decrease her lisinopril from 40 to 20 mg daily given some lower blood pressures in the event this episode was related to hypotension. I also recommend sh e discontinue the chlorthalidone for now as this can sometimes be related to syncope. A close follow up with her PCP for consideration of resuming her increasing blood pressure medicines. Her blood pre ssure at the time of discharge is 103/61 without antihypertensives on board. /[id number]/MODL
== END 2017-07-01 12:00 | disposition home or self-care (01) ==
LOC: F2W 21:05
PROVIDERS: ADMIT Internal Medicine; ATTEND Hospitalist
DX: R55 Syncope and collapse (principal); M54.2 Cervicalgia; S06.0X9A Concussion with loss of consciousness of unspecified duration, initial encounter; W19.XXXA Unspecified fall, initial encounter; Y92.013 Bedroom of single-family (private) house as the place of occurrence of the external cause; Y93.84 Activity, sleeping; F41.8 Other specified anxiety disorders; E06.3 Autoimmune thyroiditis; G43.909 Migraine, unspecified, not intractable, without status migrainosus; Z86.79 Personal history of other diseases of the circulatory system
CPT/HCPCS: 70450; 93005; 96360; 99285; G0378; 80305; J2270

== ENCOUNTER → 2017-12-19 | Outpatient (CLI) | payer MEDICAID | LOC: FIMAGING 14:54 | PROVIDERS: ATTEND Family Medicine | DX: N63.20 Unspecified lump in the left breast, unspecified quadrant (principal) ==

== ENCOUNTER 2018-05-25 09:57 | Inpatient (IN) | payer MEDICAID ==
[2018-05-25] MEDS ORDERED: DEXAMETHASONE 10 MG/ML VIAL IVP ONE (10:20)
[2018-05-25] MEDS ORDERED: METOCLOPRAMIDE 10 MG/2 ML VIAL IVP ONE (10:20)
[2018-05-25] MEDS ORDERED: NS 1,000 ML IV ONE (10:20)
--- NOTE | 2018-05-25 10:26 | EDPHY ---
H & P Stated Complaint: allergic reaction on Tuesday, hurts to breathe, migraine, hx of pleurisy Time Seen by Provider: 05/25/18 10:13 HPI/ROS: CHIEF COMPLAINT: Chest discomfort, sore throat, body aches, migraine headache HISTORY OF PRESENT ILLNESS: Patient is a 47-year-old female with a history of hypothyroidism, SVT, anxiety and migraines. She reports that 1 week ago her neurologist prescribed gabapentin for her migraines. This made her have swelling in her face and mouth. It was discontinued. She then gradually improved over the next several days. She also has an allergy to an histamines. Over the last day or 2 however she is developed sore throat, body aches, pleuritic chest discomfort as well as a dry cough. She states that it feels like in the past when she has had pleurisy. She is concerned however because her daughter was here yesterday and is diagnosed with influenza and pneumonia. She is at home on Tamiflu and antibiotics. Patient did get a flu vaccination this year. She has not had a fever. Severity: Moderate Modifying factors: None REVIEW OF SYSTEMS: Constitutional: See HPI EENTM: Slight nasal congestion denies: blurred vision, double vision Respiratory: See HPI Cardiac: denies: chest pain, irregular heart rate, lightheadedness, palpitations Gastrointestinal/Abdominal: denies: abdominal pain, diarrhea, nausea, vomiting, blood streaked stools Genitourinary: denies: dysuria, frequency, hematuria, pain Musculoskeletal: denies: joint pain, muscle pain Skin: denies: lesions, rash, jaundice, bruising Neurological: denies: headache, numbness, paresthesia, tingling, dizziness, weakness Hematologic/Lymphatic: denies: blood clots, easy bleeding, easy bruising Immunologic/allergic: denies: HIV/AIDS, transplant 10 systems reviewed and negative except as noted EXAM: GENERAL: Uncomfortable, holding ice pack on her head, in no acute distress. HEAD: Atraumatic, normocephalic. EYES: Pupils equal round and reactive to light, extraocular movements intact, sclera anicteric, conjunctiva are normal. ENT: TMs normal, nares patent, oropharynx clear without exudates. Moist mucous membranes. NECK: Normal range of motion, supple without lymphadenopathy or JVD. LUNGS: Breath sounds clear to auscultation bilaterally and equal. No wheezes rales or rhonchi. HEART: Regular rate and rhythm without murmurs, rubs or gallops. ABDOMEN: Soft, nontender, normoactive bowel sounds. No guarding, no rebound. No masses appreciated. BACK: No CVA tenderness, no spinal tenderness, step-offs or deformities EXTREMITIES: Normal range of motion, no pitting or edema. No clubbing or cyanosis. NEUROLOGICAL: Cranial nerves II through XII grossly intact. Normal speech, normal gait. 5/5 strength, normal movement in all extremities, normal sensation , normal reflexes PSYCH: Normal mood, normal affect. SKIN: Warm, dry, normal turgor, no visible rashes or lesions. Source: Patient Exam Limitations: No limitations - Personal History LMP (Females 10-55): 8-14 Days Ago Current Tetanus/Diphtheria Vaccine: Yes Current Tetanus Diphtheria and Acellular Pertussis (TDAP): Yes Tetanus Vaccine Date: 2011 - Medical/Surgical History Hx Asthma: No Hx Chronic Respiratory Disease: No Hx Diabetes: No Hx Cardiac Disease: Yes Hx Renal Disease: No Hx Cirrhosis: No Hx Alcoholism: No Hx HIV/AIDS: No Hx Splenectomy or Spleen Trauma: No Other PMH: PMH- HASHIMOTOS, hypothyroid, depression, ovarian cysts, MTHFR, DDD, KIDNEY STONES, SVT, anxiety, arthritis, MIGRAINE, prinzmetal angina. PSH- THYROIDECTOMY, , UTERINE SEPTATE REMOVAL/appy, thyroidectomy - Family History Significant Family History: No pertinent family hx - Social History Smoking Status: Never smoked Alcohol Use: None Constitutional: Initial Vital Signs Temperature (C) 36.8 C 05/25/18 10:02 Heart Rate 122 H 05/25/18 10:02 Respiratory Rate 20 05/25/18 10:02 Blood Pressure 157/101 H 05/25/18 10:02 O2 Sat (%) 97 05/25/18 10:02 O2 Delivery Mode Room Air O2 (L/minute) 3 Allergies/Adverse Reactions: nifedipine Allergy (Severe, Verified 06/30/17 15:54) Other-Enter Comments amoxicillin trihydrate [From Augmentin] Allergy (Mild, Verified 06/30/17 15:54) TINNITIS aripiprazole [From Abilify] Allergy (Verified 05/25/18 13:23) Agitation diphenhydramine [From Benadryl] Allergy (Verified 05/25/18 13:23) Itching gabapentin [From Neurontin] Allergy (Verified 05/25/18 13:23) Swelling/neck,face,throat metoclopramide HCl [From Reglan] Allergy (Verified 06/30/17 15:54) Anxiety omeprazole Allergy (Verified 05/25/18 13:23) Rash potassium clavulanate [From Augmentin] Allergy (Verified 05/25/18 13:23) TINNITIS sumatriptan [From Imitrex] Allergy (Verified 05/25/18 13:23) Unknown Home Medications: Medication Instructions Recorded DULoxetine [Cymbalta 60 MG (*)] 60 mg PO DAILY 07/30/16 Diazepam [Valium 2 MG (*)] 2 mg PO TID PRN 06/30/17 Levothyroxine [Synthroid 175 mcg 175 mcg PO DAILY06 06/30/17 (*)] Amphet Asp and D/Amphet [Adderall 10 mg PO TID@12,16,20 05/25/18 10 MG (*)] Chlorthalidone [Chlorthalidone 25 25 mg PO DAILY 05/25/18 mg (*)] Cyanocobalamin [Vitamin B12 (*)] 1,000 mcg PO DAILY 05/25/18 Deplin 15mg 15 mg PO DAILY 05/25/18 Ferrous Sulfate [Ferrous Sulf 325 325 mg PO DAILY 05/25/18 MG (*)] Folic Acid [Folic Acid 1 MG (*)] 1 mg PO DAILY 05/25/18 Herbals/Supplements -Info Only 1 ea PO DAILY 05/25/18 Lisinopril [Zestril 40 mg (*)] 40 mg PO DAILY 05/25/18 Ondansetron HCl [Zofran] 4 mg PO Q8HRS PRN 05/25/18 traMADol [Ultram 50 mg (*)] 50 - 100 mg PO Q6HRS PRN 05/25/18 Medical Decision Making - Diagnostics Imaging: Discussed imaging studies w/ call center supervisor Radiologist ED Course/Re-evaluation: Patient's x-rays consistent with pulmonary edema which is concerning. Her heart size is normal. Pulse ox remains in the mid 90s. Heart rate has improved to 105 to 110. Will obtain blood work. Awaiting viral swabs. Suspect a viral bronchitis type picture although the patient states that this is identical to when she found out she was allergic to nifedipine 20 years ago and she did up with "pleurisy and pleural fluid". She initially came to the ER thinking that she was having a reaction to the gabapentin she took last week which cause swelling in her face and extremities. That swelling has resolved. No known history of cardiac, hepatic or renal disease. She states that they have considered working her up in the past for lupus but those tests have not been done. 12:20 p.m. the patient is positive for flu. I have started her on Tamiflu. She now desaturates occasionally and is requiring oxygen. Will admit. Her white blood cell count is elevated. I have paged hospital service. I am concerned that she will worsen. 2:45 p.m. I spoke with Lise who will accept for the hospitalist service to the medical floor. Will not administer antibiotics at this point. She has received Tamiflu. Differential Diagnosis: Partial list of the Differential diagnosis considered include but were not limited to; influenza, pulmonary edema, bronchitis, allergic reaction and although unlikely based on the history and physical exam, I also considered acute coronary disease, PE, pneumonia. - Data Points Laboratory Results: Laboratory Results 05/26/18 03:16 05/25/18 11:52 Medications Given: Albuterol/Ipratropium (Duoneb) 3 ml IH Q6HRS PRN PRN Reason: Short of Breath/Dyspnea Stop: 11/21/18 15:05 Last Admin: 05/26/18 17:28 Dose: 3 ml Amphetamine/Dextroamphetamine (Adderall) 10 mg PO TID@0800,1200,1600 [facility] Stop: 11/21/18 20:44 Last Admin: 05/26/18 16:40 Dose: Not Given Benzonatate (Tessalon Pearles) 200 mg PO TID PRN PRN Reason: Cough, Mild Stop: 11/21/18 14:39 Last Admin: 05/26/18 02:27 Dose: 200 mg Chlorthalidone (Chlorthalidone) 25 mg PO DAILY KIM Stop: 11/22/18 08:59 Last Admin: 05/26/18 09:41 Dose: 25 mg Diazepam (Valium) 4 mg PO DAILY PRN PRN Reason: anxiety/sleep Stop: 11/22/18 16:45 Last Admin: 05/26/18 21:27 Dose: 4 mg Duloxetine HCl (Cymbalta) 60 mg PO DAILY KIM Stop: 11/21/18 14:44 Last Admin: 05/26/18 09:41 Dose: 60 mg Enoxaparin Sodium (Lovenox) 40 mg SC DAILY KIM Stop: 11/22/18 08:59 Last Admin: 05/26/18 10:31 Dose: 40 mg Ferrous Sulfate (Ferrous Sulfate) 325 mg PO DAILY KIM Stop: 11/22/18 08:59 Last Admin: 05/26/18 09:38 Dose: 325 mg Folic Acid (Folic Acid) 1 mg PO DAILY KIM Stop: 11/22/18 08:59 Last Admin: 05/26/18 09:38 Dose: 1 mg Hydralazine HCl (Apresoline) 5 mg IVP Q6HRS PRN PRN Reason: hypertenion Stop: 11/22/18 13:19 Last Admin: 05/26/18 14:15 Dose: 5 mg Levothyroxine Sodium (Synthroid) 175 mcg PO DAILY06 [facility] Stop: 11/22/18 05:59 Last Admin: 05/27/18 05:34 Dose: 175 mcg Lisinopril (Zestril) 40 mg PO DAILY KIM Stop: 11/22/18 08:59 Last Admin: 05/26/18 09:38 Dose: 40 mg Miscellaneous Medication (Deplin 15mg) 15 mg PO DAILY KIM Stop: 11/22/18 08:59 Last Admin: 05/26/18 09:42 Dose: 15 mg Oseltamivir Phosphate (Tamiflu) 75 mg PO BIDMEAL [facility] Stop: 05/30/18 08:01 Last Admin: 05/26/18 18:34 Dose: 75 mg Tramadol HCl (Ultram) 50 - 100 mg PO Q6HRS PRN PRN Reason: Pain, Moderate Stop: 11/21/18 14:42 Last Admin: 05/25/18 17:14 Dose: 100 mg Vitamin B Complex (Vitamin B12) 1,000 mcg PO DAILY KIM Stop: 11/22/18 08:59 Last Admin: 05/26/18 09:41 Dose: 1,000 mcg Discontinued Medications Amphetamine/Dextroamphetamine (Adderall) 10 mg PO TID@07,12,16 KIM Stop: 11/21/18 15:59 Last Admin: 05/25/18 15:52 Dose: 10 mg Amphetamine/Dextroamphetamine (Adderall) 10 mg PO TID@1200,1600,2000 [facility] Stop: 11/21/18 15:59 Last Admin: 05/25/18 20:51 Dose: 10 mg Chlorthalidone (Chlorthalidone) 25 mg PO DAILY KIM Stop: 11/21/18 14:44 Last Admin: 05/25/18 16:14 Dose: Not Given Dexamethasone (Decadron Injection) 10 mg IVP EDNOW ONE Stop: 05/25/18 10:21 Last Admin: 05/25/18 10:45 Dose: 10 mg Diazepam (Valium) 2 mg PO TID PRN PRN Reason: anxiety/sleep Stop: 11/21/18 14:42 Last Admin: 05/26/18 02:27 Dose: 2 mg Furosemide (Lasix Injection) 20 mg IVP ONCE ONE Stop: 05/25/18 15:07 Last Admin: 05/25/18 15:54 Dose: 20 mg Sodium Chloride (Ns) 1,000 mls @ 0 mls/hr IV ONCE ONE; Wide Open PRN Reason: Protocol Stop: 05/25/18 10:21 Last Admin: 05/25/18 10:44 Dose: 1,000 mls Lorazepam (Ativan Injection) 1 mg IVP EDNOW ONE Stop: 05/25/18 11:24 Last Admin: 05/25/18 11:36 Dose: 1 mg Lorazepam (Ativan) 0.5 mg PO ONCE ONE Stop: 05/26/18 05:02 Last Admin: 05/26/18 05:10 Dose: 0.5 mg Metoclopramide HCl (Reglan Injection) 10 mg IVP EDNOW ONE Stop: 05/25/18 10:21 Last Admin: 05/25/18 10:45 Dose: Not Given Oseltamivir Phosphate (Tamiflu) 75 mg PO EDNOW ONE Stop: 05/25/18 12:02 Last Admin: 05/25/18 12:13 Dose: 75 mg Point of Care Test Results: Chemistry 05/25/18 11:57 POC Troponin I 0.00 ng/mL ng/mL (0.00-0.08) Departure - Departure Disposition: [facility] Acute Clinical Impression: Influenza A Pulmonary edema Qualifiers: Chronicity: acute Qualified Code(s): J81.0 - Acute pulmonary edema Condition: Fair
[2018-05-25] MEDS ORDERED: LORazepam 2 MG/ML INJ IVP ONE (11:23)
[2018-05-25] MEDS ORDERED: OSELTAMIVIR PHOSPHATE 75 MG CAP PO ONE (12:01)
[2018-05-25 12:18] LABS: PLATELET COUNT 311 10^3/uL (150-400)
[2018-05-25] MEDS ORDERED: ONDANSETRON 4 MG/2 ML VIAL IVP PRN (13:26)
[2018-05-25] MEDS ORDERED: ONDANSETRON DISINTEGRATING 4 MG TAB PO PRN (13:26)
[2018-05-25] MEDS ORDERED: ACETAMINOPHEN 325 MG TAB PO PRN (13:26)
[2018-05-25] MEDS ORDERED: BENZONATATE 100 MG CAP PO PRN (14:40)
[2018-05-25] MEDS ORDERED: KETOROLAC 30 MG/1 ML SDV IVP PRN (14:40)
[2018-05-25] MEDS ORDERED: DIAZEPAM 2 MG TAB PO PRN (14:43)
[2018-05-25] MEDS ORDERED: GUAIFENESIN/DM 10 ML UDCUP PO PRN (14:43)
[2018-05-25] MEDS ORDERED: CHLORTHALIDONE 25 MG TAB PO SCH (14:45)
[2018-05-25] MEDS ORDERED: IPRATROPIUM/ALBUTEROL 3 ML DEYVIAL IH PRN (15:06)
[2018-05-25] MEDS ORDERED: FUROSEMIDE 20 MG/2 ML VIAL IVP ONE (15:06)
--- NOTE | 2018-05-25 15:36 | GHP ---
[f rep st] HISTORY AND PHYSICAL DATE OF ADMISSION: 05/25/2018 CHIEF COMPLAINT: Influenza A, chest pain. HISTORY OF PRESENT ILLNESS: A 47-year-old female with Prinzmetal angina, hypertension, fibromyalgia, SVT, presents to the ER with a new cough starting last night and chest pain with deep inspiration. She has felt clammy while being here in the emergency room. She was here in the ER caring for her daughter who was just diagnosed with influenza and walking pneumonia. Patient does feel achy all over. Denies fevers. Has a scratchy throat, mild ear pain. Had allergic reaction to gabapentin on Tuesday. She was prescribed this a week ago for occipital neuralgia and migraines. She had a very swollen face, feet, legs. No difficulty swallowing at that time. She was given a steroid shot by her PCP and these symptoms have improved. She still has mild residual feet swelling. She has chronic dyspnea with walking. The new symptom today is sharp pain with inspiration. She is followed by Dr. Wallis, had a cath 2016 that was negative for CAD and normal EF. Positive for influenza A. Chest x-ray showed mild pulmonary edema. REVIEW OF SYSTEMS: I completed a 10-point review of systems noted in HPI. PAST MEDICAL HISTORY: 1. Prinzmetal angina. 2. Hypertension. 3. Fibromyalgia. 4. Anemia. 5. Depression. 6. SVT. 7. Syncope. 8. ADHD. 9. Panic attacks. 10. Juan's. 11. Goiter. 12. Hypothyroidism. PAST SURGICAL HISTORY: Thyroid surgery x3, appendectomy, hysterectomy, cardiac catheterization 2016. SOCIAL HISTORY: Is , lives with her , 8-year-old daughter. Social alcohol. Lives in [place]. History of cocaine abuse. Denies any currently. FAMILY HISTORY: Father of non-Hodgkin's lymphoma. Maternal side has hypertension and thyroid issues. HOME MEDICATIONS: Tramadol, herbal supplement, iron, metoprolol, 50 mg daily, Adderall 3 times a day, Zofran, chlorthalidone 25 mg daily, lisinopril 40 mg daily, levothyroxine 175 mcg daily, diazepam 2 mg t.i.d. p.r.n., duloxetine 60 mg daily. ALLERGIES: Nifedipine, amoxicillin, Abilify, Benadryl, gabapentin, Reglan, omeprazole, potassium clavulanate, sumatriptan. PHYSICAL EXAMINATION: VITAL SIGNS: Temperature 36.8, blood pressure 157/101, heart rate in 120s, respirations 20, 97% on room air. GENERAL: She is tired appearing. No acute distress. HEENT: PERRLA. Moist mucous membranes. Oropharynx is clear. No exudate. Airway patent. Tympanic membrane clear on the right, cerumen blocking view on the left. CV: Tachy but regular. Trace pedal edema. LUNGS: Diminished throughout. No crackles or wheezes. ABDOMEN: Mildly distended, soft, nontender, nondistended. Positive bowel sounds. : No Presley. MUSCULOSKELETAL: 5/5 upper and lower extremity strength. NEURO: 2 through 12 intact. PSYCH: Alert and oriented x3. LABORATORY DATA: WBC 14, hemoglobin 10, hematocrit 31, platelets 311. Sodium 134, potassium 3.6, chloride 103, carbon dioxide 24, creatinine 0.7, glucose 87 , calcium 8.4. LFTs within normal. Troponin 0.00. BNP is 1760. TSH 2017 was 2.1. Echocardiogram 12/09/2015: Normal coronary artery disease, normal LV function. Chest x-ray personally reviewed by me: Mild interstitial edema with minimal pleural effusion. EKG: personally reviewed: mild ST flattening anterior leads, LVH; similar to prior ASSESSMENT/PLAN: 1. Influenza A: Tamiflu,antitussives and Toradol 2. Atypical chest pain: pleuritic in nature. Negative troponin, stable on RA, EKG nonischemic. Cath 2015 with no CAD. Trial Toradol. 3. Mild pulmonary edema: Normal LV function. Ran out of chlorthalidone for the past 2 days. Dose Lasix x 1. Consider echo if not improved. Dyspnea chronic 4. Hypertension: Lisinopril, chlorthalidone. 5. Anemia: Iron supplementation. 6. Depression: Cymbalta. 7. Attention deficit hyperactivity disorder: Adderall. 8. Juan's, now hypothyroidism: Levothyroxine. 9. Recent medication reaction: gabapentin added to allergies. Received steroid injection 10. Diet: Regular. 11. Deep vein thrombosis prophylaxis: Lovenox. 12. Disposition: Observation admission on telemetry. Can likely discharge tomorrow if feeling better. /[id number]/MODL MTDD
[2018-05-25] MEDS: DULoxetine 60 MG CAP PO SCH (15:52)
[2018-05-25] MEDS ORDERED: ADDERALL 10 MG TAB PO SCH ×2 (16:00→20:45)
[2018-05-25] MEDS: traMADol 50 MG TAB PO PRN (17:14)
[2018-05-25] MEDS: OSELTAMIVIR PHOSPHATE 75 MG CAP PO SCH (17:38)
[2018-05-26] MEDS ORDERED: LORazepam 0.5 MG TAB PO ONE (05:01)
[2018-05-26] MEDS: LEVOTHYROXINE 175 MCG TAB PO SCH ×2 (05:09→05:51)
[2018-05-26] MEDS ORDERED: Herbals/Supplements -Info Only PO SCH (09:00)
[2018-05-26] MEDS: LISINOPRIL 40 MG TAB PO SCH (09:38)
[2018-05-26] MEDS: FOLIC ACID 1 MG TAB PO SCH (09:38)
[2018-05-26] MEDS: FERROUS SULFATE 325 MG TAB PO SCH (09:38)
[2018-05-26] MEDS: ADDERALL 10 MG TAB PO SCH ×3 (09:38→16:40)
[2018-05-26] MEDS: OSELTAMIVIR PHOSPHATE 75 MG CAP PO SCH ×2 (09:41→18:34)
[2018-05-26] MEDS: CHLORTHALIDONE 25 MG TAB PO SCH (09:41)
[2018-05-26] MEDS: CYANO/VITAMIN B12 1000 MCG TAB PO SCH (09:41)
[2018-05-26] MEDS: DULoxetine 60 MG CAP PO SCH (09:41)
[2018-05-26] MEDS: METHYLFOLATE 15 MG PO SCH (09:42)
[2018-05-26] MEDS: ENOXAPARIN 40 MG/0.4 ML SYR SC SCH (10:31)
[2018-05-26] MEDS ORDERED: hydrALAZINE 20 MG/ML VIAL IVP PRN (13:20)
--- NOTE | 2018-05-26 16:23 | ASMTCMCOM ---
CM Note CM Note Notes: 05/26/2018 Case Management Note Met w/pt to discuss discharge needs. Pt admitted for Pulmonary edema and influenza. There are no therapy evals ordered today. Case Management consult ordered by . Pt is to [facility] [phone]. PCP is Dr. Peña with [facility]. Referred pt to [facility] for evaluation of additional behavioral health support. There are no further case management d/c needs identified d/t pt age, marital status, and independence with ADLs. Case Management d/c poc: independent with follow up as directed. Case Management available if needs change. Date Signed: 05/26/2018 04:22 PM Electronically Signed By:Cherri Mendez RN
--- NOTE | 2018-05-26 16:29 | ECHO ---
[email or web address] [address] [address] Main: [phone] Echocardiography Examination Transthoracic Name: HANNAH AVERY MR#: [id number] Study Date: 05/26/2018 Study Time: 01:20 PM Date of : 1970 Age: 47 year(s) Height: 165.1 cm (65 in.) Weight: 69.85 kg (154 lb.) BSA: 1.77 m2 Gender: Female Examination: Echo Indication: Pulmonary Edema, h/o Prinzmetal Image Quality: Adequate Contrast: Requested by: ?? BP: 159 mmHg/115 mmHg Heart Rate: 110 bpm Rhythm: Indication: Pulmonary Edema, h/o Prinzmetal Procedure Staff Referring Physician: Reed Man: Cecy Saavedra [facility] Reading Physician: Mickey Ocampo MD Requesting Provider: Indication: Pulmonary Edema, h/o Prinzmetal Measurements Chambers AV/MV Label Value Normal Value Label Value Normal Value IVSd, 2D 1 cm (0.6cm - 1.1cm) AV Opening, MM 1.7 cm LVDd, 2D 4.4 cm (3.9cm - 5.3cm) AV PGmax 6 mmHg LVDs, 2D 3.2 cm (2.1cm - 4cm) AV PGmean 3 mmHg LVEF, 2D 52 % (54% - 74%) AV Vmax, Curve 1.18 m/s LVEF, BP 56 % (55% - 70%) DEYANIRA D (continuity eq. 2.2 cm2 LVEF, MOD2 43 % (55% - 70%) VTI) LVEF, MOD4 67 % (55% - 70%) MV A Vmax 0.77 m/s LVOT PGmean 2 mmHg MV DT 148 ms LVOT Vmean 0.72 m/s MV E' lateral 0.09 m/s LVOTd 1.8 cm (1.8cm - 2cm) MV E' mean 0.09 m/s LVPWd, 2D 1 cm MV E' septal 0.09 m/s RVDd, 2D 3 cm (1.9cm - 3.8cm) MV E Vmax 0.97 m/s LA Area, A2C 15.1 cm2 (0cm2 - 20cm2) MV E/A 1.26 LA Volume, A2C 37 ml (22ml - 52ml) MV E/E' lateral 10.2 LADs, 2D 3.2 cm (2.7cm - 3.8cm) MV E/E' mean 10.78 RA Area 15.3 cm2 MV E/E' septal 10.8 (0.5 - 1.7) Additional Vessels MV PHT 0.04 s Label Value Normal Value MV PHT 41 ms AoAsc 3.1 cm MVA PHT 5.4 cm2 Patient: HANNAH AVERY Study Date: 05/26/2018 Page 1 of 3 01:20 PM AoRoot, 2D 3.3 cm (1.4cm - 2.6cm) TV/PV IVC 1.6 cm (1.2cm - 2.3cm) Label Value Normal Value RA Pressure 5 mmHg RVSP 45 mmHg TR Pmax 40 mmHg TR Vmax 3.18 m/s PV PGmax 2 mmHg PV Vmax, Caliper 0.76 m/s (0.6m/s - 0.9m/s) Conclusions Left Ventricle: Left ventricle is normal in size. Normal global systolic left ventricular function. Mitral Valve: Mitral valve appears structurally normal. Mild mitral regurgitation. Aortic Valve: Aortic leaflets are structurally normal. No aortic valve regurgitation. There is no aortic stenosis. Tricuspid Valve: Right Ventricular systolic pressure is measured at 45 mmHg. Overall Conclusions: No old studies for comparison. Findings Left Ventricle: Left ventricle is normal in size. Normal global systolic left ventricular function. Left ventricle wall thickness is normal. There is no regional wall motion abnormalities. Cannot determine LAP and Diastolic Dysfunction Grade. Right Ventricle: Normal size right ventricle. Right ventricular wall thickness is normal. Right ventricular systolic function is normal. Left Atrium: The left atrium is normal in size. Right Atrium: The right atrium is normal in size. Mitral Valve: Mitral valve appears structurally normal. Mild mitral regurgitation. No mitral valve stenosis. Aortic Valve: Aortic leaflets are structurally normal. No aortic valve regurgitation. There is no aortic stenosis. Tricuspid Valve: Tricuspid valve leaflets are structurally normal. Mild tricuspid regurgitation. No tricuspid valve stenosis. Right Ventricular systolic pressure is measured at 45 mmHg. Pulmonary artery pressure is mildly to moderately increased. Pulmonic Valve: Pulmonic leaflets exhibit normal cuspal separation. Trivial pulmonic valve regurgitation is present. There is no pulmonic valve stenosis. Aorta: The aorta is normal. The aortic root size in 2D measures 3.3 cm. The ascending aorta measures 3.1 cm. Patient: HANNAH AVERY Study Date: 05/26/2018 Page 2 of 3 01:20 PM Aorta Measurements AoRoot, 2D is 3.3 cm. Pulmonary Artery: The pulmonary artery morphology appears normal. IVC: The inferior vena cava is normal in size. The inferior vena cava is normal in size and course. Pericardium: Trivial pericardial effusion. No pleural effusion present. Exam Details Procedure Ordered: Echo Procedure Components: Complete 2D imaging Procedure Status: Routine study Image Quality: Adequate Facility Location: Cardiac Echo 1 (No Signature Object) Patient: HANNAH AVERY Study Date: 05/26/2018 Page 3 of 3 01:20 PM [id number]
[2018-05-26] MEDS ORDERED: DIAZEPAM 2 MG TAB PO PRN (16:46)
--- NOTE | 2018-05-26 16:54 | HOSPPROG ---
Hospitalist Progress Note Assessment/Plan: #Influenza A: Tamiflu, cough meds, nebs #Accelerated HTN: increased after Adderall, hold and monitor. PRN hydral #Depression/anxiety: home meds #Pulm HTN: reports snoring. Outpatient sleep study #ADHD: holding med #Hypothyroidism: LT4 #Gabapentin reaction: no residual sxs #Mild pulm edema: improved with IV lasix. Now on home diuretic #Diet: regular Disp: inpatient admission given accelerated HTN. DC tomorrow if BP improved Subjective: chest tightness improved, mild occipital headache Objective: Vital Signs Temp Pulse Resp BP Pulse Ox 36.8 C 97 20 170/109 H 93 05/26/18 15:13 05/26/18 15:13 05/26/18 15:13 05/26/18 15:13 05/26/18 15:13 Laboratory Results 05/26/18 03:16 05/25/18 05/26/18 05/27/18 05:59 05:59 05:59 Intake Total 1600 Output Total 3400 Balance -1800 - Time Spent With Patient Time Spent with Patient: greater than 35 minutes Time Spent with Patient: Greater than 35 minutes spent on this patients care, greater than 50% of time spent counseling, educating, and coordinating care regarding the above mentioned plan. - Physical Exam Constitutional: no apparent distress Eyes: PERRL Ears, Nose, Mouth, Throat: moist mucous membranes Cardiovascular: regular rate and rhythym Respiratory: other (poor air movement, tight) Gastrointestinal: normoactive bowel sounds, soft, non-tender abdomen Skin: warm Neurologic: AAOx3, CN II-XII Intact Psychiatric: interacting appropriately ICD10 Worksheet Patient Problems: Problems Problem Status Onset Influenza A Acute Pulmonary edema Acute Abdominal pain Acute Acute appendicitis Acute Acute coronary syndrome Acute Anxiety Acute Chest pain Acute Chest pain Acute Migraine headache Acute Nausea & vomiting Acute Palpitations Acute Syncope and collapse Acute
--- NOTE | 2018-05-26 17:27 | PDMN ---
Medical Necessity Medical necessity: Change to IP, as of 05/26/18, per MD & MCG MG-SIC Systemic or Infectious Condition; los >2 mn for ongoing management of influenza A w/ accelerated htn (BP 187/106), tachycardia & pulmonary edema; requiring further monitoring, IV Hydralazine/med management & supportive care
[2018-05-26] MEDS: DIAZEPAM 2 MG TAB PO PRN (21:27)
[2018-05-27] MEDS: LEVOTHYROXINE 175 MCG TAB PO SCH (05:34)
[2018-05-27] MEDS: DULoxetine 60 MG CAP PO SCH (08:55)
[2018-05-27] MEDS: CYANO/VITAMIN B12 1000 MCG TAB PO SCH (08:55)
[2018-05-27] MEDS: ENOXAPARIN 40 MG/0.4 ML SYR SC SCH (08:55)
[2018-05-27] MEDS: FERROUS SULFATE 325 MG TAB PO SCH (08:55)
[2018-05-27] MEDS: CHLORTHALIDONE 25 MG TAB PO SCH (08:55)
[2018-05-27] MEDS: OSELTAMIVIR PHOSPHATE 75 MG CAP PO SCH (08:55)
[2018-05-27] MEDS: ADDERALL 10 MG TAB PO SCH ×2 (08:55→13:53)
[2018-05-27] MEDS: FOLIC ACID 1 MG TAB PO SCH (08:56)
[2018-05-27] MEDS: LISINOPRIL 40 MG TAB PO SCH (08:56)
[2018-05-27] MEDS: METHYLFOLATE 15 MG PO SCH (08:57)
[2018-05-27] MEDS: traMADol 50 MG TAB PO PRN (09:06)
--- NOTE | 2018-05-27 10:55 | ASMTLACE ---
LACE Length of stay for Answers: Less than 1 day current admission Acuity / Level of Answers: Yes Care: Did the patient have an inpatient admission? Comorbidities - select Answers: Opioid dependence all that apply / Chronic pain Other Notes: Hypothyroid; SVT; HTN # of Emergency department Answers: 1-2 visits in the last 6 months Social determinants Answers: Mental health diagnosis (anxiety, depression, pers onality disorders, etc.) Score: 12 Date Signed: 05/27/2018 10:55 AM Electronically Signed By:Carol Flores
[2018-05-27] MEDS: DIAZEPAM 2 MG TAB PO PRN (11:51)
[2018-05-27 12:38] VITALS: BP 156/78
--- NOTE | 2018-05-27 14:51 | PDDCSUM ---
Discharge Summary Discharge Summary: Date of Admission: 05/25/2018 Date of Discharge: 05/27/2018 Consults: N/A Procedures; CXR, TTE Followup: PCP Hospital Course Problem List: #Influenza A: Continue Tamiflu, cough med PRN #Accelerated HTN: increased after Adderall, continue home medications including Chlorthalidone and Lisinopril upon discharge. Patient to followup with PCP for continued BP management after discharge #Depression/anxiety: home meds #Pulm HTN: reports snoring. Outpatient sleep study #ADHD: holding med, restarted upon discharge #Hypothyroidism: LT4 #Gabapentin reaction: no residual sxs #Mild pulm edema: improved with IV lasix. Now on home diuretic Time spent on discharge was >35 minutes with >50% of time spent on patient education and counseling.
== END 2018-05-27 14:14 | disposition home or self-care (01) | DRG 199 ==
LOC: F2W 15:27 → OBSVTOIN 05-26 16:55
PROVIDERS: ADMIT Internal Medicine; ATTEND Internal Medicine
DX: I10 Essential (primary) hypertension (principal); J10.1 Influenza due to other identified influenza virus with other respiratory manifestations; J81.0 Acute pulmonary edema; I47.1 Supraventricular tachycardia; F41.0 Panic disorder [episodic paroxysmal anxiety]; F32.9 Major depressive disorder, single episode, unspecified; I27.29 Other secondary pulmonary hypertension; D50.9 Iron deficiency anemia, unspecified; F90.2 Attention-deficit hyperactivity disorder, combined type; E89.0 Postprocedural hypothyroidism; M79.7 Fibromyalgia; G43.909 Migraine, unspecified, not intractable, without status migrainosus
CPT/HCPCS: 84484-ER; 96374; G0378; J0360; J1100; J1650; J1940; J2060; J2765

== ENCOUNTER 2018-06-07 15:53 | Emergency (ER) | payer MEDICAID ==
[2018-06-07] MEDS ORDERED: LORazepam 2 MG/ML INJ IVP ONE (16:12)
[2018-06-07] MEDS ORDERED: NS 1,000 ML IV ONE (16:13)
--- NOTE | 2018-06-07 16:14 | EDPHY ---
H & P Stated Complaint: Taking Tramodol 1 x month, symptoms started 06/06, SOB, Nausea , numbness to Time Seen by Provider: 06/07/18 16:07 HPI/ROS: CHIEF COMPLAINT: Hyperventilating, tingling in itching and nausea and lightheadedness HISTORY OF PRESENT ILLNESS: The patient is a 47-year-old female with a history of panic attacks, depression, chronic pain and hypothyroidism who comes to the emergency department complaining of 2 days worth of feeling short of breath hand having tingling in her extremities lightheadedness when she stands and nausea but no vomiting. No diarrhea. No fever. No headache. No chest pain. She reports that she began taking tramadol 3 weeks ago for her chronic pain and is worried she is having allergic reaction. She called her doctor's office who recommended she come here for evaluation. No rashes. No recent travel. No leg pain or swelling. She also reports having taken Valium in the past for anxiety attacks but no longer does. She does not think she could be withdrawing. Severity: Moderate Modifying factors: Improves with calming techniques REVIEW OF SYSTEMS: Constitutional: denies: chills, fever, recent illness, recent injury EENTM: denies: blurred vision, double vision, nose congestion Respiratory: See HPI denies: cough Cardiac: denies: chest pain, irregular heart rate, lightheadedness, palpitations Gastrointestinal/Abdominal: See HPI denies: abdominal pain, diarrhea, vomiting , blood streaked stools Genitourinary: denies: dysuria, frequency, hematuria, pain Musculoskeletal: denies: joint pain, muscle pain Skin: Itching denies: lesions, rash, jaundice, bruising Neurological: denies: headache, numbness, paresthesia, tingling, dizziness, weakness Hematologic/Lymphatic: denies: blood clots, easy bleeding, easy bruising Immunologic/allergic: denies: HIV/AIDS, transplant 10 systems reviewed and negative except as noted EXAM: GENERAL: Anxious, hyperventilating and in no acute distress. HEAD: Atraumatic, normocephalic. EYES: Pupils equal round and reactive to light, extraocular movements intact, sclera anicteric, conjunctiva are normal. ENT: TMs normal, nares patent, oropharynx clear without exudates. Moist mucous membranes. NECK: Normal range of motion, supple without lymphadenopathy or JVD. LUNGS: Breath sounds clear to auscultation bilaterally and equal. No wheezes rales or rhonchi. HEART: Regular rate and rhythm without murmurs, rubs or gallops. ABDOMEN: Soft, nontender, normoactive bowel sounds. No guarding, no rebound. No masses appreciated. BACK: No CVA tenderness, no spinal tenderness, step-offs or deformities EXTREMITIES: Normal range of motion, no pitting or edema. No clubbing or cyanosis. NEUROLOGICAL: Cranial nerves II through XII grossly intact. Normal speech, normal gait. 5/5 strength, normal movement in all extremities, normal sensation , normal reflexes PSYCH: Anxious, answers questions appropriately. He is able to calm down with calming techniques requesting Ativan SKIN: Warm, dry, normal turgor, no visible rashes or lesions. Source: Patient Exam Limitations: No limitations - Personal History Current Tetanus Diphtheria and Acellular Pertussis (TDAP): Yes Tetanus Vaccine Date: 2011 - Medical/Surgical History Hx Asthma: No Hx Chronic Respiratory Disease: No Hx Diabetes: No Hx Cardiac Disease: Yes Hx Renal Disease: No Hx Cirrhosis: No Hx Alcoholism: No Hx HIV/AIDS: No Hx Splenectomy or Spleen Trauma: No Other PMH: PMH- HASHIMOTOS, hypothyroid, depression, ovarian cysts, MTHFR, DDD, KIDNEY STONES, SVT, anxiety, arthritis, MIGRAINE, prinzmetal angina. PSH- THYROIDECTOMY, , UTERINE SEPTATE REMOVAL/appy, thyroidectomy - Family History Significant Family History: No pertinent family hx - Social History Smoking Status: Never smoked Alcohol Use: None Constitutional: Initial Vital Signs Temperature (C) 36.6 C 06/07/18 15:54 Heart Rate 120 H 06/07/18 15:54 Respiratory Rate 26 H 06/07/18 15:54 Blood Pressure 138/88 H 06/07/18 15:54 O2 Sat (%) 100 06/07/18 15:54 O2 Delivery Mode Room Air Allergies/Adverse Reactions: nifedipine Allergy (Severe, Verified 06/30/17 15:54) Other-Enter Comments amoxicillin trihydrate [From Augmentin] Allergy (Mild, Verified 06/30/17 15:54) TINNITIS aripiprazole [From Abilify] Allergy (Verified 05/25/18 13:23) Agitation diphenhydramine [From Benadryl] Allergy (Verified 05/25/18 13:23) Itching gabapentin [From Neurontin] Allergy (Verified 05/25/18 13:23) Swelling/neck,face,throat metoclopramide HCl [From Reglan] Allergy (Verified 06/30/17 15:54) Anxiety omeprazole Allergy (Verified 05/25/18 13:23) Rash potassium clavulanate [From Augmentin] Allergy (Verified 05/25/18 13:23) TINNITIS sumatriptan [From Imitrex] Allergy (Verified 05/25/18 13:23) Unknown Home Medications: Medication Instructions Recorded DULoxetine [Cymbalta 60 MG (*)] 60 mg PO DAILY 07/30/16 Diazepam [Valium 2 MG (*)] 2 mg PO TID PRN 06/30/17 Levothyroxine [Synthroid 175 mcg 175 mcg PO DAILY06 06/30/17 (*)] Amphet Asp and D/Amphet [Adderall 10 mg PO TID@12,16,20 05/25/18 10 MG (*)] Chlorthalidone [Chlorthalidone 25 25 mg PO DAILY 05/25/18 mg (*)] Cyanocobalamin [Vitamin B12 (*)] 1,000 mcg PO DAILY 05/25/18 Deplin 15mg 15 mg PO DAILY 05/25/18 Ferrous Sulfate [Ferrous Sulf 325 325 mg PO DAILY 05/25/18 MG (*)] Folic Acid [Folic Acid 1 MG (*)] 1 mg PO DAILY 05/25/18 Herbals/Supplements -Info Only 1 ea PO DAILY 05/25/18 Lisinopril [Zestril 40 mg (*)] 40 mg PO DAILY 05/25/18 Ondansetron HCl [Zofran] 4 mg PO Q8HRS PRN 05/25/18 traMADol [Ultram 50 mg (*)] 50 - 100 mg PO Q6HRS PRN 05/25/18 Benzonatate [Tessalon Pearles] 200 mg PO TID PRN #20 cap 05/27/18 Oseltamivir Phosphate [Tamiflu 75 75 mg PO BIDMEAL #7 cap 05/27/18 mg (*)] guaiFENesin/DEXTROMETHORPHAN 10 ml PO Q4HRS PRN ml 05/27/18 [Robitussin Dm Oral Liquid (*)] LORazepam [Ativan 1 mg (RX)] 1 mg PO Q6-8PRN PRN #10 tab 06/07/18 Medical Decision Making - Diagnostics EKG Interpretation: An EKG obtained and was read and documented in trace view. Please see trace view for full reading and report. Sinus rhythm borderline prolonged QT. No acute ischemia or arrhythmias Imaging Results: Imaging Impressions Chest/Thorax CTA 06/07/18 17:05 Impression: 1. No evidence of thrombopulmonary embolic disease. 2. No evidence for acute cardiopulmonary abnormality. Results called and discussed with MAGUE RICE at 06/07/2018 17:57. Imaging: Discussed imaging studies w/ call manager Radiologist ED Course/Re-evaluation: Patient is feeling completely better after Ativan. Unfortunate her white blood cell count and D-dimer are slightly elevated. She is not hypoxic or tachycardic. She has no chest pain. She did however complain initially shortness of breath. I will therefore order a CT scan to rule out pneumonia verses PE etc. 6:00 p.m. the patient is feeling completely better. She is requesting a p.r.n. Prescription for Ativan. We discussed the CT results which are reassuring. Differential Diagnosis: Partial list of the Differential diagnosis considered include but were not limited to; anxiety, hyperventilation, allergic reaction and although unlikely based on the history and physical exam, I also considered pneumonia, a coronary artery disease, PE. I discussed these differential diagnoses and the plan with the patient as well as the usual and expected course. The patient understands that the diagnosis is provisional and that in medicine we are not always correct and that further workup is often warranted. Usual and customary warnings were given. All of the patient's questions were answered. The patient was instructed to return to the emergency department should the symptoms at all worsen or return, otherwise to followup with the physician as we discussed. - Data Points Laboratory Results: Laboratory Results 06/07/18 16:05 06/07/18 16:05 06/07/18 06/07/18 06/07/18 16:25 16:05 16:05 WBC RBC Hgb Hct MCV MCH MCHC RDW Plt Count MPV Neut % (Auto) Lymph % (Auto) [place] % (Auto) Eos % (Auto) Baso % (Auto) Nucleat RBC Rel Count Absolute Neuts (auto) Absolute Lymphs (auto) Absolute Monos (auto) Absolute Eos (auto) Absolute Basos (auto) Absolute Nucleated RBC Immature Gran % Immature Gran # D-Dimer 0.51 ug/mLFEU H ug/mLFEU (0.00-0.50) Sodium Potassium Chloride Carbon Dioxide Anion Gap BUN Creatinine Estimated GFR Glucose Calcium Phosphorus POC Troponin I 0.00 ng/mL ng/mL (0.00-0.08) TSH Free T4 Beta HCG, Qual NEGATIVE 06/07/18 06/07/18 16:05 16:05 WBC 16.79 10^3/uL H 10^3/uL (3.80-9.50) RBC 4.75 10^6/uL 10^6/uL (4.18-5.33) Hgb 15.8 g/dL g/dL (12.6-16.3) Hct 43.6 % % (38.0-47.0) MCV 91.8 fL fL (81.5-99.8) MCH 33.3 pg pg (27.9-34.1) MCHC 36.2 g/dL g/dL (32.4-36.7) RDW 12.5 % % (11.5-15.2) Plt Count 667 10^3/uL H 10^3/uL (150-400) MPV 8.6 fL L fL (8.7-11.7) Neut % (Auto) 75.6 % H % (39.3-74.2) Lymph % (Auto) 19.5 % % (15.0-45.0) [place] % (Auto) 4.0 % L % (4.5-13.0) Eos % (Auto) 0.2 % L % (0.6-7.6) Baso % (Auto) 0.2 % L % (0.3-1.7) Nucleat RBC Rel Count 0.0 % % (0.0-0.2) Absolute Neuts (auto) 12.68 10^3/uL H 10^3/uL (1.70-6.50) Absolute Lymphs (auto) 3.28 10^3/uL H 10^3/uL (1.00-3.00) Absolute Monos (auto) 0.67 10^3/uL 10^3/uL (0.30-0.80) Absolute Eos (auto) 0.04 10^3/uL 10^3/uL (0.03-0.40) Absolute Basos (auto) 0.04 10^3/uL 10^3/uL (0.02-0.10) Absolute Nucleated RBC 0.00 10^3/uL 10^3/uL (0-0.01) Immature Gran % 0.5 % % (0.0-1.1) Immature Gran # 0.08 10^3/uL 10^3/uL (0.00-0.10) D-Dimer Sodium 135 mEq/L mEq/L (135-145) Potassium 3.8 mEq/L mEq/L (3.5-5.2) Chloride 96 mEq/L L mEq/L (97-110) Carbon Dioxide 23 mEq/l mEq/l (22-31) Anion Gap 16 mEq/L H mEq/L (6-14) BUN 18 mg/dL mg/dL (7-23) Creatinine 0.8 mg/dL mg/dL (0.6-1.0) Estimated GFR > 60 Glucose 134 mg/dL H mg/dL (70-100) Calcium 10.8 mg/dL H mg/dL (8.5-10.4) Phosphorus 2.7 mg/dL mg/dL (2.5-4.5) POC Troponin I TSH 11.200 uIU/mL H uIU/mL (0.465-4.680) Free T4 0.98 ng/dL ng/dL (0.59-2.19) Beta HCG, Qual Medications Given: Discontinued Medications Sodium Chloride (Ns) 1,000 mls @ 0 mls/hr IV EDNOW ONE; Wide Open PRN Reason: Protocol Stop: 06/07/18 16:14 Last Admin: 06/07/18 16:18 Dose: 1,000 mls Lorazepam (Ativan Injection) 1 mg IVP EDNOW ONE Stop: 06/07/18 16:13 Last Admin: 06/07/18 16:18 Dose: 1 mg Ondansetron HCl (Zofran) 4 mg IVP EDNOW ONE Stop: 06/07/18 18:01 Last Admin: 06/07/18 18:02 Dose: 4 mg Point of Care Test Results: Chemistry 06/07/18 16:25 POC Troponin I 0.00 ng/mL ng/mL (0.00-0.08) Departure - Departure Disposition: Home, Routine, Self-Care Clinical Impression: Panic attack Condition: Fair Instructions: Panic Attack (ED) Referrals: CORIE MENESES [Primary Care Provider] - As per Instructions Prescriptions: LORazepam [Ativan 1 mg (RX)] 1 mg PO Q6-8PRN PRN #10 tab PRN Reason: *Anxiety/Agitation/Insomnia
[2018-06-07 16:20] LABS: PLATELET COUNT 667 10^3/uL (150-400)
--- NOTE | 2018-06-07 16:27 | CPEKG ---
Test Reason : OPEN Blood Pressure : / mmHG Vent. Rate : 093 BPM Atrial Rate : 093 BPM P-R Int : 133 ms QRS Dur : 081 ms QT Int : 426 ms P-R-T Axes : 045 -07 042 degrees QTc Int : 530 ms Sinus rhythm Prolonged QT interval Confirmed by Mague Rice ([id number]) on 06/07/2018 4:27:15 PM Referred By: MAGUE RICE Confirmed By:Mague Rice
[2018-06-07] MEDS ORDERED: IOPAMIDOL (ISOVUE-300) 100 ML BTL ONE (17:14)
[2018-06-07] MEDS ORDERED: IOPAMIDOL (ISOVUE-370) 150 ML BTL IV ONE (17:17)
[2018-06-07] MEDS ORDERED: ONDANSETRON 4 MG/2 ML VIAL IVP ONE (18:00)
[2018-06-07 20:00] VITALS: BP 115/87
== END 2018-06-07 19:59 | disposition home or self-care (01) ==
DX: F41.0 Panic disorder [episodic paroxysmal anxiety] (principal); E03.9 Hypothyroidism, unspecified; F41.8 Other specified anxiety disorders; G43.909 Migraine, unspecified, not intractable, without status migrainosus; Z79.891 Long term (current) use of opiate analgesic; E86.9 Volume depletion, unspecified
CPT/HCPCS: 84484-ER; 96374; J2060; J2405; Q9967

== ENCOUNTER 2018-06-13 14:39 | Emergency (ER) | payer MEDICAID ==
--- NOTE | 2018-06-13 15:39 | EDPHY ---
H & P Time Seen by Provider: 06/13/18 14:52 HPI/ROS: Chief complaint. Toes are Blue HPI. 47-year-old female presents emergency department with complaint of painful feet and blue toes for 4 days. No injury. They seem to be more blue of her toes get cold. No trauma or injury. No swelling to her feet or calves. No calf pain or thigh pain. Symptoms resolved when her feet are warm. ROS 10 systems were reviewed and negative with the exception of the elements mentioned in the history of present illness Past Medical/Surgical History: Juan's disease, hypothyroid, depression, panic attacks, chronic pain, ovarian cysts, kidney stones, SVT, migraines, Prinzmetal angina, thyroidectomy, , appendectomy, thyroidectomy Social History: , nonsmoker, no alcohol Smoking Status: Never smoked Physical Exam: General Appearance: Alert pleasant well-developed female mild distress vital signs are stable Eyes: Pupils equal and round no pallor or injection. ENT, Mouth: Mucous membranes are moist. Respiratory: There are no retractions, lungs are clear to auscultation. Cardiovascular: Regular rate and rhythm. Gastrointestinal: Abdomen is soft and nontender, no masses, bowel sounds normal. Neurological: Awake and alert, sensory and motor exams grossly normal. Skin: Warm and dry, no rashes. Musculoskeletal: Neck is supple nontender. Extremities symmetrical, full range of motion. Feet and toes are pink. There is no evidence for cyanosis or discoloration. Capillary refill less than 2 sec. Dorsalis pedis pulses are full and symmetrical. No calf pain or swelling. Psychiatric: Patient is oriented X 3, there is no agitation. Constitutional: Initial Vital Signs Temperature (C) 36.7 C 06/13/18 14:41 Heart Rate 98 06/13/18 14:41 Respiratory Rate 16 06/13/18 14:41 Blood Pressure 151/99 H 06/13/18 14:41 O2 Sat (%) 100 06/13/18 14:41 O2 Delivery Mode Room Air Allergies/Adverse Reactions: nifedipine Allergy (Severe, Verified 06/13/18 14:46) Other-Enter Comments amoxicillin trihydrate [From Augmentin] Allergy (Mild, Verified 06/13/18 14:46) TINNITIS aripiprazole [From Abilify] Allergy (Verified 06/13/18 14:46) Agitation diphenhydramine [From Benadryl] Allergy (Verified 06/13/18 14:46) Itching gabapentin [From Neurontin] Allergy (Verified 06/13/18 14:46) Swelling/neck,face,throat metoclopramide HCl [From Reglan] Allergy (Verified 06/13/18 14:46) Anxiety omeprazole Allergy (Verified 06/13/18 14:46) Rash potassium clavulanate [From Augmentin] Allergy (Verified 06/13/18 14:46) TINNITIS sumatriptan [From Imitrex] Allergy (Verified 06/13/18 14:46) Unknown tramadol Allergy (Verified 06/13/18 14:46) Home Medications: Medication Instructions Recorded DULoxetine [Cymbalta 60 MG (*)] 60 mg PO DAILY 07/30/16 Diazepam [Valium 2 MG (*)] 2 mg PO TID PRN 06/30/17 Levothyroxine [Synthroid 175 mcg 175 mcg PO DAILY06 06/30/17 (*)] Amphet Asp and D/Amphet [Adderall 10 mg PO TID@12,16,20 05/25/18 10 MG (*)] Chlorthalidone [Chlorthalidone 25 25 mg PO DAILY 05/25/18 mg (*)] Cyanocobalamin [Vitamin B12 (*)] 1,000 mcg PO DAILY 05/25/18 Deplin 15mg 15 mg PO DAILY 05/25/18 Ferrous Sulfate [Ferrous Sulf 325 325 mg PO DAILY 05/25/18 MG (*)] Folic Acid [Folic Acid 1 MG (*)] 1 mg PO DAILY 05/25/18 Herbals/Supplements -Info Only 1 ea PO DAILY 05/25/18 Lisinopril [Zestril 40 mg (*)] 40 mg PO DAILY 05/25/18 Ondansetron HCl [Zofran] 4 mg PO Q8HRS PRN 05/25/18 traMADol [Ultram 50 mg (*)] 50 - 100 mg PO Q6HRS PRN 05/25/18 Benzonatate [Tessalon Pearles] 200 mg PO TID PRN #20 cap 05/27/18 Oseltamivir Phosphate [Tamiflu 75 75 mg PO BIDMEAL #7 cap 05/27/18 mg (*)] guaiFENesin/DEXTROMETHORPHAN 10 ml PO Q4HRS PRN ml 05/27/18 [Robitussin Dm Oral Liquid (*)] LORazepam [Ativan 1 mg (RX)] 1 mg PO Q6-8PRN PRN #10 tab 06/07/18 Capsacian 0.075% 30 gm TP TID #1 cream 06/13/18 Medical Decision Making ED Course/Re-evaluation: Patient and I discussed her symptoms. We discussed further imaging however her symptoms are not present and exam is really quite normal. Patient is comfortable with no further evaluation at this point in time. She is encouraged to return at any point for arterial study. She expresses understanding and agreement Differential Diagnosis: I considered DVT however there is no calf pain there is no swelling. I considered arterial blockage however patient has good pulses and good color and good capillary refill; there is no evidence of cyanosis. Symptoms are worse when her feet are cold and this may represent vaso spasm. Departure - Departure Disposition: Home, Routine, Self-Care Clinical Impression: Foot pain, bilateral Condition: Good Instructions: Capsaicin (On the skin) Additional Instructions: Keep your feet warm and dry. May use capsacin cream to help with circulation Return for worsening pain, blueness or discoloration, swelling Recheck in 2 days for continuing symptoms Referrals: CORIE MENESES [Primary Care Provider] - As per Instructions Prescriptions: Capsacian 0.075% 30 gm TP TID #1 cream
[2018-06-13 16:26] VITALS: BP 118/70
== END 2018-06-13 16:25 | disposition home or self-care (01) ==
DX: M79.671 Pain in right foot (principal); M79.672 Pain in left foot; I10 Essential (primary) hypertension; E03.9 Hypothyroidism, unspecified